=== PATIENT | male | born 1965 | race African-American/Black ===

== ENCOUNTER 2017-06-27 17:56 | Inpatient (IN) | payer OTHER ==
[2017-06-27 19:47] VITALS: BMI 26.6
--- NOTE | 2017-06-27 21:20 | HP ---
CIWA Score - CIWA Score Nausea/Vomitin-Mild Nausea/No Vomiting Muscle Tremors: 2 Anxiety: 3 Agitation: 0-Normal Activity Paroxysmal Sweats: 3 Orientation: 0-Oriented Tacttile Disturbances: 0-None Auditory Disturbances: 0-None Visual Disturbances: 0-None Headache: 4-Moderately Severe CIWA-Ar Total Score: 13 Admission ROS S - HPI Chief Complaint: Alcohol withdrawal symptoms Allergies/Adverse Reactions: Allergies Allergy/AdvReac Type Severity Reaction Status Date / Time No Known Allergies Allergy Verified 06/27/17 21:11 History of Present Illness: 51 years old male with a long history of alcohol dependence is seeking admission to detox. Patient has been in previous detox at [facility] and reports 9 years of sobriety while in [facility]. He has medical history of HTN, nicotine dependence and depression. He denies suicidal ideation at this time. Exam Limitations: No Limitations - Ebola screening Have you traveled outside of the country in the last 21 days: No Have you had contact with anyone from an Ebola affected area: No Have you been sick,other than usual withdrawal symptoms: No Do you have a fever: No - Review of Systems Constitutional: Chills, Loss of Appetite, Malaise, Night Sweats, Changes in sleep EENT: reports: Recent change in vision Respiratory: reports: No Symptoms reported Cardiac: reports: No Symptoms Reported GI: reports: Nausea, Poor Appetite, Poor Fluid Intake, Abdominal cramping : reports: No Symptoms Reported Musculoskeletal: reports: No Symptoms Reported Integumentary: reports: Dryness Neuro: reports: Headache, Tingling, Tremors Endocrine: reports: No Symptoms Reported Hematology: reports: No Symptoms Reported Psychiatric: reports: Agitated, Anxious, Depressed Other Systems: Reviewed and Negative Patient History - Patient Medical History Hx Anemia: No Hx Asthma: No Hx Chronic Obstructive Pulmonary Disease (COPD): No Hx Cancer: No Hx Cardiac Disorders: No Hx Congestive Heart Failure: No Hx Hypertension: Yes (Not on medication) Hx Hypercholesterolemia: No HX Cerebrovascular Accident: No Hx Seizures: No Hx Diabetes: No Hx Gastrointestinal Disorders: No Hx Liver Disease: No Hx Genitourinary Disorders: No Hx Sexually Transmitted Disorders: No Hx Renal Disease (ESRD): No Hx Thyroid Disease: No Hx Human Immunodeficiency Virus (HIV): No (Negative 2018) Hx Hepatitis C: No Hx Depression: Yes (Remeron) Hx Suicide Attempt: No (Denies suicidal ideation at this time) Hx Bipolar Disorder: No Hx Schizophrenia: No - Patient Surgical History Past Surgical History: Yes Hx Abdominal Surgery: Yes (Hernia repair at Age 4) - PPD History Previous Implant?: No Documented Results: Negative w/o proof Implanted On Prior [facility] Admission?: No PPD to be Administered?: Yes - Reproductive History Patient is a Female of Child Bearing Age (11 -55 yrs old): No (Male) - Smoking Cessation Smoking history: Current every day smoker Have you smoked in the past 12 months: Yes Aproximately how many cigarettes per day: 7 Hx Chewing Tobacco Use: No Initiated information on smoking cessation: Yes 'Breaking Loose' booklet given: 06/27/17 - Substance & Tx. History Hx Alcohol Use: Yes Hx Substance Use: Yes Substance Use Type: Cocaine Hx Substance Use Treatment: Yes ([facility]) - Substances Abused Alcohol Route: Oral Frequency: Daily Amount used: VODKA- 1/2 PINT, BEER -2 x (6 packs) Age of first use: 16 Date of Last Use: 06/27/17 Cocaine Route: Smoking Frequency: Daily Amount used: $60 Age of first use: 22 Date of Last Use: 06/26/17 Family Disease History - Family Disease History Family History: Denies Admission Physical Exam S - Vital Signs Vital Signs: Vital Signs - 24 hr 06/27/17 19:46 Temperature 97 F L Pulse Rate 79 Respiratory 18 Rate Blood Pressure 138/82 - Physical General Appearance: Yes: Moderate Distress HEENTM: Yes: EOMI, Normal ENT Inspection, Normal Voice, NINOSKA Respiratory: Yes: Lungs Clear, Normal Breath Sounds, No Respiratory Distress Neck: Yes: Supple Breast: Yes: Breast Exam Deferred Cardiology: Yes: Regular Rhythm, Regular Rate, S1, S2 Abdominal: Yes: Normal Bowel Sounds, Soft Genitourinary: Yes: Within Normal Limits Back: Yes: Normal Inspection Musculoskeletal: Yes: Within Normal Limits Extremities: Yes: Normal Inspection Neurological: Yes: Alert, Normal Mood/Affect Integumentary: Yes: Dry Lymphatic: Yes: Within Normal Limits - Diagnostic (1) Alcohol dependence with uncomplicated withdrawal Current Visit: Yes Status: Chronic (2) Cocaine dependence, uncomplicated Current Visit: Yes Status: Chronic (3) HTN (hypertension) Current Visit: Yes Status: Chronic (4) Nicotine dependence Current Visit: Yes Status: Chronic Qualifiers: Nicotine product type: unspecified (5) Depression Current Visit: Yes Status: Chronic Qualifiers: Depression Type: unspecified Qualified Code(s): F32.9 - Major depressive disorder, single episode, unspecified BHS Breath Alcohol Content Breath Alcohol Content: 0 Urine Drug Screen - Results Drug Screen Negative: No Urine Drug Screen Results: LILY-Cocaine
[2017-06-27] MEDS ORDERED: NICOTINE POLACRILEX 2 MG GUM BC PRN (21:31)
[2017-06-27] MEDS ORDERED: ACETAMINOPHEN 325 MG TABLET (FP) PO PRN (21:31)
[2017-06-27] MEDS ORDERED: MAGNESIUM HYDROX 2400MG/30ML ORAL SUSPENSION 30 ML CUP PO PRN (21:31)
[2017-06-27] MEDS ORDERED: LOPERAMIDE HCL 2 MG CAPSULE PO PRN (21:31)
[2017-06-27] MEDS ORDERED: IBUPROFEN 400 MG TABLET (FP) PO PRN (21:31)
[2017-06-27] MEDS ORDERED: chlordiazePOXIDE HCL 25 MG CAPSULE PO PRN (21:31)
[2017-06-27] MEDS ORDERED: MENTHOL/PHENOL 1 EACH UD MM PRN (21:31)
[2017-06-27] MEDS ORDERED: MAG HYDROX/AL HYDROX/SIMETH 30 ML UNIT-DOSE CUP PO PRN (21:31)
[2017-06-27] MEDS ORDERED: P-EPHED 60MG/TRIPROLIDI 2.5MG TABLET PO PRN (21:31)
[2017-06-27] MEDS ORDERED: MAGNESIUM CITRATE 300 ML BOTTLE PO PRN (21:31)
[2017-06-27] MEDS ORDERED: guaiFENesin/D-METHORPHAN HB 10 ML UNIT-DOSE CUPS PO PRN (21:31)
[2017-06-27] MEDS ORDERED: MELATONIN 5 MG TABLETS PO PRN (22:00)
[2017-06-28] MEDS: chlordiazePOXIDE HCL 25 MG CAPSULE PO SCH ×5 (00:29→22:16)
[2017-06-28] MEDS: THIAMINE HCL 100 MG TABLET (FP) PO SCH ×2 (00:34→22:16)
[2017-06-28] MEDS: PRENATAL VITAMINS W/ FOLIC ACID TABLET (FP) PO SCH (10:04)
[2017-06-28] MEDS: NICOTINE 14 MG/24 HOURS TOPICAL PATCH TD SCH (10:05)
[2017-06-28 10:29] LABS: HEMATOCRIT 42.4 % (35.4-49); HEMOGLOBIN 14.2 GM/dL (11.7-16.9); MCHC 33.5 g/dl (32.0-35.9); MEAN CELL VOLUME 89.6 fl (80-96); MEAN PLT VOLUME 9.7 fl (7.5-11.1); PLATELET COUNT 235 K/MM3 (134-434); RBC 4.73 M/mm3 (4.00-5.60); RDW 14.8 % (11.9-15.9); WHITE BLOOD COUNT 8.9 K/mm3 (4.0-10.0)
--- NOTE | 2017-06-28 10:41 | EKG ---
Test Reason : Blood Pressure : / mmHG Vent. Rate : 073 BPM Atrial Rate : 073 BPM P-R Int : 122 ms QRS Dur : 084 ms QT Int : 384 ms P-R-T Axes : -08 -20 -08 degrees QTc Int : 423 ms NORMAL SINUS RHYTHM WITH SINUS ARRHYTHMIA MODERATE VOLTAGE CRITERIA FOR LVH, MAY BE NORMAL VARIANT NONSPECIFIC ST ABNORMALITY ABNORMAL ECG NO PREVIOUS ECGS AVAILABLE Confirmed by MD Hay, Rad ([id number]) on 06/28/2017 10:41:26 AM Referred By: Confirmed By:Rad Guido MD
[2017-06-28 10:55] LABS: CHLORIDE 108 mmol/L (98-107); POTASSIUM 4.1 mmol/L (3.5-5.1); SODIUM 142 mmol/L (136-145)
[2017-06-28 11:03] LABS: ALBUMIN 3.1 g/dl (3.4-5.0); ALK PHOS 88 U/L (45-117); ANION GAP 6 (8-16); BLOOD UREA NITROGEN 20 mg/dL (7-18); CALCIUM 8.2 mg/dL (8.5-10.1); CO2 28 mmol/L (21-32); GLUCOSE,RANDOM 107 mg/dL (74-106); SGOT/AST 10 U/L (15-37); SGPT/ALT 14 U/L (12-78); TOT PROT 6.2 g/dl (6.4-8.2)
--- NOTE | 2017-06-28 11:20 | PN ---
S CIWA - CIWA Score Nausea/Vomitin-No Nausea/No Vomiting Muscle Tremors: 4-Moderate,w/Arms Extend Anxiety: 3 Agitation: 3 Paroxysmal Sweats: 1-Minimal Palms Moist Orientation: 0-Oriented Tacttile Disturbances: 1-Very Mild Itch/Numbness Auditory Disturbances: 0-None Visual Disturbances: 0-None Headache: 0-None Present CIWA-Ar Total Score: 12 BHS Progress Note (SOAP) Subjective: sweat tremor anxiety no shortness of breath denies chest pain no difficulty of breath patient is alert oriented x 3 had breakfast denies dizziness Objective: 06/28/17 11:18 Vital Signs Temperature 96.1 F L 06/28/17 10:47 Pulse Rate 70 06/28/17 10:47 Respiratory Rate 18 06/28/17 10:47 Blood Pressure 123/78 06/28/17 10:47 O2 Sat by Pulse Oximetry (%) Laboratory Last Values WBC 8.9 K/mm3 (4.0-10.0) 06/28/17 07:00 RBC 4.73 M/mm3 (4.00-5.60) 06/28/17 07:00 Hgb 14.2 GM/dL (11.7-16.9) 06/28/17 07:00 Hct 42.4 % (35.4-49) 06/28/17 07:00 MCV 89.6 fl (80-96) 06/28/17 07:00 MCH 30.0 pg (25.7-33.7) 06/28/17 07:00 MCHC 33.5 g/dl (32.0-35.9) 06/28/17 07:00 RDW 14.8 % (11.9-15.9) 06/28/17 07:00 Plt Count 235 K/MM3 (134-434) 06/28/17 07:00 MPV 9.7 fl (7.5-11.1) 06/28/17 07:00 lab noted Assessment: 06/28/17 11:18 withdrawal sx cardiac arrhythemia Plan: continue detox begin aspirin
[2017-06-28 11:23] LABS: BILIRUBIN,TOTAL < 0.1 mg/dL (0.2-1.0)
--- NOTE | 2017-06-28 16:52 | CONSULT ---
[facility] Psychiatric Consult - Data Date of interview: 06/28/17 Admission source: [facility] Identifying data: Pt. approached three times for psychiatric consultation. Pt. refused.
[2017-06-29] MEDS: chlordiazePOXIDE HCL 25 MG CAPSULE PO SCH ×3 (06:00→17:13)
[2017-06-29] MEDS ORDERED: ASPIRIN 81 MG CHEWABLE TABLETS PO SCH (10:00)
--- NOTE | 2017-06-29 10:10 | PN ---
S CIWA - CIWA Score Nausea/Vomitin Muscle Tremors: 2 Anxiety: 2 Agitation: 2 Paroxysmal Sweats: 3 Orientation: 0-Oriented Tacttile Disturbances: 0-None Auditory Disturbances: 0-None Visual Disturbances: 0-None Headache: 0-None Present CIWA-Ar Total Score: 12 BHS Progress Note (SOAP) Subjective: interrupted sleep, sweats, nausea Objective: 06/29/17 10:06 Vital Signs Temperature 97.7 F 06/29/17 09:20 Pulse Rate 71 06/29/17 09:20 Respiratory Rate 20 06/29/17 09:20 Blood Pressure 129/86 06/29/17 09:20 O2 Sat by Pulse Oximetry (%) Laboratory Tests 06/28/17 06/28/17 07:00 07:00 WBC 8.9 RBC 4.73 Hgb 14.2 Hct 42.4 MCV 89.6 MCH 30.0 MCHC 33.5 RDW 14.8 Plt Count 235 MPV 9.7 Sodium 142 Potassium 4.1 Chloride 108 H Carbon Dioxide 28 Anion Gap 6 L BUN 20 H Creatinine 1.0 Creat Clearance w eGFR > 60 Random Glucose 107 H Calcium 8.2 L Total Bilirubin < 0.1 L AST 10 L ALT 14 Alkaline Phosphatase 88 Total Protein 6.2 L Albumin 3.1 L pt aox3 in nad ,lying in bed Assessment: 06/29/17 10:09 withdrawal sx's Plan: cont. detox increase fluids b
[2017-06-29] MEDS: NICOTINE 14 MG/24 HOURS TOPICAL PATCH TD SCH (10:15)
[2017-06-29] MEDS: PRENATAL VITAMINS W/ FOLIC ACID TABLET (FP) PO SCH (10:15)
--- NOTE | 2017-06-29 10:54 | EKG ---
Test Reason : Blood Pressure : / mmHG Vent. Rate : 064 BPM Atrial Rate : 064 BPM P-R Int : 118 ms QRS Dur : 080 ms QT Int : 406 ms P-R-T Axes : 016 080 055 degrees QTc Int : 418 ms NORMAL SINUS RHYTHM ACUTE PERICARDITIS ABNORMAL ECG WHEN COMPARED WITH ECG OF 28-JUN-2017 00:39, QUESTIONABLE CHANGE IN QRS AXIS ST ELEVATION HAS REPLACED ST DEPRESSION IN INFERIOR LEADS ST LESS ELEVATED IN LATERAL LEADS NONSPECIFIC T WAVE ABNORMALITY HAS REPLACED INVERTED T WAVES IN INFERIOR LEADS Confirmed by SHIVAM COLLADO, COSME ([id number]) on 06/29/2017 10:53:59 AM Referred By: Confirmed By:COSME LANGLEY MD
[2017-06-29 14:30] LABS: URINE APPEARANCE CLEAR; URINE BILIRUBIN NEGATIVE (<2.0 mg/dL); URINE BLOOD NEGATIVE (NEGATIVE); URINE COLOR STRAW; URINE GLUCOSE (UA) NEGATIVE (NEGATIVE); URINE KETONE NEGATIVE (NEGATIVE); URINE LEUK ESTERASE NEGATIVE (NEGATIVE); URINE NITRITE NEGATIVE (NEGATIVE); URINE PROTEIN NEGATIVE (NEGATIVE); URINE UROBILINOGEN NEGATIVE mg/dL (0.2-1.0)
[2017-06-29] MEDS: THIAMINE HCL 100 MG TABLET (FP) PO SCH (22:19)
[2017-06-29] MEDS: chlordiazePOXIDE 5 MG CAPSULE PO SCH (22:19)
[2017-06-30 06:21] VITALS: BP 133/75; PULSE 65; TEMP 95.9
[2017-06-30] MEDS: chlordiazePOXIDE 5 MG CAPSULE PO SCH (06:29)
--- NOTE | 2017-06-30 08:50 | DS ---
[facility] Detox Discharge Summary Admission Date: 06/27/17 Discharge Date: 06/30/17 - History Present History: Alcohol Dependence Additional Comments: 51years old male admitted for alcohol detox reports no alcohol withdrawal sx and wants to go to [facility]care patient is alert oriented x 3 no acute distress steady gait coherent speech - Physical Exam Results Vital Signs: Vital Signs Temperature 95.9 F L 06/30/17 06:00 Pulse Rate 65 06/30/17 06:00 Respiratory Rate 18 06/30/17 06:00 Blood Pressure 133/75 06/30/17 06:00 O2 Sat by Pulse Oximetry (%) Pertinent Admission Physical Exam Findings: withdrawal sx Vital Signs Temperature 95.9 F L 06/30/17 06:00 Pulse Rate 65 06/30/17 06:00 Respiratory Rate 18 06/30/17 06:00 Blood Pressure 133/75 06/30/17 06:00 O2 Sat by Pulse Oximetry (%) Laboratory Last Values WBC 8.9 K/mm3 (4.0-10.0) 06/28/17 07:00 RBC 4.73 M/mm3 (4.00-5.60) 06/28/17 07:00 Hgb 14.2 GM/dL (11.7-16.9) 06/28/17 07:00 Hct 42.4 % (35.4-49) 06/28/17 07:00 MCV 89.6 fl (80-96) 06/28/17 07:00 MCH 30.0 pg (25.7-33.7) 06/28/17 07:00 MCHC 33.5 g/dl (32.0-35.9) 06/28/17 07:00 RDW 14.8 % (11.9-15.9) 06/28/17 07:00 Plt Count 235 K/MM3 (134-434) 06/28/17 07:00 MPV 9.7 fl (7.5-11.1) 06/28/17 07:00 Sodium 142 mmol/L (136-145) 06/28/17 07:00 Potassium 4.1 mmol/L (3.5-5.1) 06/28/17 07:00 Chloride 108 mmol/L (98-107) H 06/28/17 07:00 Carbon Dioxide 28 mmol/L (21-32) 06/28/17 07:00 Anion Gap 6 (8-16) L 06/28/17 07:00 BUN 20 mg/dL (7-18) H 06/28/17 07:00 Creatinine 1.0 mg/dL (0.7-1.3) 06/28/17 07:00 Creat Clearance w eGFR > 60 (>60) 06/28/17 07:00 Random Glucose 107 mg/dL (74-106) H 06/28/17 07:00 Calcium 8.2 mg/dL (8.5-10.1) L 06/28/17 07:00 Total Bilirubin < 0.1 mg/dL (0.2-1.0) L 06/28/17 07:00 AST 10 U/L (15-37) L 06/28/17 07:00 ALT 14 U/L (12-78) 06/28/17 07:00 Alkaline Phosphatase 88 U/L (45-117) 06/28/17 07:00 Total Protein 6.2 g/dl (6.4-8.2) L 06/28/17 07:00 Albumin 3.1 g/dl (3.4-5.0) L 06/28/17 07:00 Urine Color Straw 06/29/17 09:20 Urine Appearance Clear 06/29/17 09:20 Urine pH 6.0 (5.0-8.0) 06/29/17 09:20 Ur Specific Dawson 1.012 (1.001-1.035) 06/29/17 09:20 Urine Protein Negative (NEGATIVE) 06/29/17 09:20 Urine Glucose (UA) Negative (NEGATIVE) 06/29/17 09:20 Urine Ketones Negative (NEGATIVE) 06/29/17 09:20 Urine Blood Negative (NEGATIVE) 06/29/17 09:20 Urine Nitrite Negative (NEGATIVE) 06/29/17 09:20 Urine Bilirubin Negative (<2.0 mg/dL) 06/29/17 09:20 Urine Urobilinogen Negative mg/dL (0.2-1.0) 06/29/17 09:20 Ur Leukocyte Esterase Negative (NEGATIVE) 06/29/17 09:20 RPR Titer Nonreactive (NONREACTIVE) 06/28/17 07:00 lab noted - Treatment Hospital Course: Detox Protocol Followed, Detoxed Safely, Responded well, Discharged Condition Good, Rehab Referral Accepted Patient has Accepted a Rehab Referral [facility]: [facility] - Medication Discharge Medications: Ambulatory Orders Mirtazapine [Remeron -] 30 mg PO HS 06/28/17 - AMA Did Patient Leave Against Medical Advice: No
--- NOTE | 2017-06-30 08:52 | PN ---
S Progress Note (SOAP) Subjective: I am ready to go to aftercare program today denies alcohol withdrawal sx denies pain denies suicidal denies homocidal no self destructive behavior Objective: 06/30/17 08:51 cardiac s1s2 pulmonary clear bilaterally abodmen soft none tenderness extremities full range of motion Assessment: 06/30/17 08:52 completed alcohol detox Plan: [facility]care with [facility]
[2017-06-30] MEDS ORDERED: chlordiazePOXIDE HCL 10 MG CAPSULE PO SCH (23:00)
== END 2017-06-30 08:50 | disposition home or self-care (01) | DRG 774 ==
LOC: YASAS 17:56 → Y6N 22:55
PROVIDERS: ADMIT Internal Medicine; ATTEND Internal Medicine
PROC: HZ2ZZZZ Detoxification Services for Substance Abuse Treatment (ICD-10-PCS; principal; 2017-06-27)
DX: F10.230 Alcohol dependence with withdrawal, uncomplicated (principal); F14.20 Cocaine dependence, uncomplicated; F17.210 Nicotine dependence, cigarettes, uncomplicated; F32.9 Major depressive disorder, single episode, unspecified; I10 Essential (primary) hypertension
CPT/HCPCS: 36415; 80053; 81003; 85027; 86593; 93005; 93010

== ENCOUNTER 2018-03-30 08:52 | Inpatient (IN) | payer OTHER ==
[2018-03-30 09:23] VITALS: BMI 27.8
--- NOTE | 2018-03-30 11:15 | HP ---
CIWA Score Nausea/Vomitin Muscle Tremors: 2 Anxiety: 2 Agitation: 2 Paroxysmal Sweats: 1-Minimal Palms Moist Orientation: 0-Oriented Tacttile Disturbances: 1-Very Mild Itch/Numbness Auditory Disturbances: 1-Very Mild Visual Disturbances: 0-None Headache: 2-Mild CIWA-Ar Total Score: 13 - Admission Criteria OASAS Guidelines: Admission for Medically Managed Detox: Requires at least one of the followin. CIWA greater than 12 2. Seizures within the past 24 hours 3. Delirium tremens within the past 24 hours 4. Hallucinations within the past 24 hours 5. Acute intervention needed for co occurring medical disorder 6. Acute intervention needed for co occurring psychiatric disorder 7. Severe withdrawal that cannot be handled at a lower level of care (continued vomiting, continued diarrhea, abnormal vital signs) requiring intravenous medication and/or fluids 8. Patient presents the following: CIWA greater than 12 Admission Criteria Met: Admission criteria met Admission ROS BHS - HPI Chief Complaint: i need help to stop drinking alcohol and cocaine Allergies/Adverse Reactions: Allergies Allergy/AdvReac Type Severity Reaction Status Date / Time No Known Allergies Allergy Verified 03/30/18 10:23 History of Present Illness: this 52 years old male with alcohol and cocaine dependence,seeking detox, withdrawal symptom,last detox Exam Limitations: No Limitations - Ebola screening Have you traveled outside of the country in the last 21 days: No Have you had contact with anyone from an Ebola affected area: No Have you been sick,other than usual withdrawal symptoms: No Do you have a fever: No - Review of Systems Constitutional: Loss of Appetite, Malaise, Night Sweats, Changes in sleep, Weakness EENT: reports: Nose Congestion, Other (no teeth,no denture) Respiratory: reports: No Symptoms reported Cardiac: reports: No Symptoms Reported GI: reports: Nausea, Poor Appetite, Abdominal cramping : reports: No Symptoms Reported Musculoskeletal: reports: Back Pain, Muscle Pain Integumentary: reports: Dryness Neuro: reports: Headache, Tremors Endocrine: reports: No Symptoms Reported Hematology: reports: No Symptoms Reported Psychiatric: reports: No Sypmtoms Reported, Judgement Intact, Mood/Affect Appropiate, Orientated x3, other (schizophrenia) Patient History - Patient Medical History Hx Anemia: No Hx Asthma: No Hx Chronic Obstructive Pulmonary Disease (COPD): No Hx Cancer: No Hx Cardiac Disorders: No Hx Congestive Heart Failure: No Hx Hypertension: No Hx Hypercholesterolemia: No HX Cerebrovascular Accident: No Hx Seizures: No Hx Diabetes: No Hx Gastrointestinal Disorders: No Hx Liver Disease: No Hx Genitourinary Disorders: No Hx Sexually Transmitted Disorders: No Hx Renal Disease (ESRD): No Hx Thyroid Disease: No Hx Human Immunodeficiency Virus (HIV): No (Negative 2018) Hx Hepatitis C: No Hx Depression: Yes Hx Suicide Attempt: No Hx Bipolar Disorder: No Hx Schizophrenia: No - Patient Surgical History Past Surgical History: Yes Hx Neurologic Surgery: No Hx Cataract Extraction: No Hx Cardiac Surgery: No Hx Lung Surgery: No Hx Breast Surgery: No Hx Breast Biopsy: No Hx Abdominal Surgery: No Hx Appendectomy: No Hx Cholecystectomy: No Hx Genitourinary Surgery: No Hx Section: No Hx Orthopedic Surgery: No Other Surgical History: left inguinal hernia repair at age 24 mos. Anesthesia Reaction: No - PPD History Previous Implant?: Yes Documented Results: Negative w/proof Implanted On Prior [facility] Admission?: Yes Date: 06/30/17 Results: 0 mm - Smoking Cessation Smoking history: Current every day smoker Have you smoked in the past 12 months: Yes Aproximately how many cigarettes per day: 3 Hx Chewing Tobacco Use: No Initiated information on smoking cessation: Yes - Substances Abused Crack Route: Smoking Frequency: Daily Amount used: $100 Age of first use: 28 Date of Last Use: 03/28/18 Alcohol-vodka/beer Route: Oral Frequency: Daily Amount used: 1 pt./1-6 pk. Age of first use: 17 Date of Last Use: 03/30/18 Admission Physical Exam BHS - Vital Signs Vital Signs: Vital Signs - 24 hr 03/30/18 09:19 Temperature 98.6 F Pulse Rate 92 H Respiratory 18 Rate Blood Pressure 136/72 BHS Breath Alcohol Content Breath Alcohol Content: 0 Urine Drug Screen - Results Drug Screen Negative: No Urine Drug Screen Results: LILY-Cocaine
--- NOTE | 2018-03-30 12:04 | HP ---
CIWA Score Nausea/Vomitin Muscle Tremors: 2 Anxiety: 2 Agitation: 2 Paroxysmal Sweats: 1-Minimal Palms Moist Orientation: 0-Oriented Tacttile Disturbances: 1-Very Mild Itch/Numbness Auditory Disturbances: 1-Very Mild Visual Disturbances: 0-None Headache: 2-Mild CIWA-Ar Total Score: 13 - Admission Criteria OASAS Guidelines: Admission for Medically Managed Detox: Requires at least one of the followin. CIWA greater than 12 2. Seizures within the past 24 hours 3. Delirium tremens within the past 24 hours 4. Hallucinations within the past 24 hours 5. Acute intervention needed for co occurring medical disorder 6. Acute intervention needed for co occurring psychiatric disorder 7. Severe withdrawal that cannot be handled at a lower level of care (continued vomiting, continued diarrhea, abnormal vital signs) requiring intravenous medication and/or fluids 8. Patient presents the following: CIWA greater than 12 Admission Criteria Met: Admission criteria met Admission ROS S - HPI Chief Complaint: i need help to stop drinking alcohol and cocaine Allergies/Adverse Reactions: Allergies Allergy/AdvReac Type Severity Reaction Status Date / Time No Known Allergies Allergy Verified 03/30/18 10:23 History of Present Illness: this 52 years old male with alcohol and cocaine dependence,seeking detox, withdrawal symptom,seeking detox,last detox 06/27/17 to 06/30/17 syncope longest period of sobriety 2 years nicotine dependence plan for rehab seen at [facility] last night got iv - Ebola screening Have you traveled outside of the country in the last 21 days: No Have you had contact with anyone from an Ebola affected area: No Have you been sick,other than usual withdrawal symptoms: No Do you have a fever: No - Review of Systems Constitutional: No Symptoms Reported, Loss of Appetite, Malaise, Night Sweats, Changes in sleep, Weakness, Unintentional Wgt. Loss EENT: reports: Tearing, Nose Congestion Respiratory: reports: No Symptoms reported Cardiac: reports: No Symptoms Reported GI: reports: Diarrhea, Nausea, Abdominal cramping : reports: No Symptoms Reported Musculoskeletal: reports: Back Pain, Muscle Pain Integumentary: reports: Dryness Neuro: reports: Headache, Tremors Endocrine: reports: No Symptoms Reported Hematology: reports: No Symptoms Reported Psychiatric: reports: No Sypmtoms Reported, Judgement Intact, Mood/Affect Appropiate, Orientated x3, Anxious, Depressed Other Systems: Reviewed and Negative Patient History - Patient Medical History Hx Anemia: No Hx Asthma: No Hx Chronic Obstructive Pulmonary Disease (COPD): No Hx Cancer: No Hx Cardiac Disorders: No Hx Congestive Heart Failure: No Hx Hypertension: No Hx Hypercholesterolemia: No HX Cerebrovascular Accident: No Hx Seizures: No Hx Diabetes: No Hx Gastrointestinal Disorders: No Hx Liver Disease: No Hx Genitourinary Disorders: No Hx Sexually Transmitted Disorders: No Hx Renal Disease (ESRD): No Hx Thyroid Disease: No Hx Human Immunodeficiency Virus (HIV): No (Negative 2018 last 917) Hx Hepatitis C: No Hx Depression: Yes (no med) Hx Suicide Attempt: No Hx Bipolar Disorder: No Hx Schizophrenia: No Other Medical History: no suicidal,no homicida - Patient Surgical History Past Surgical History: Yes Hx Neurologic Surgery: No Hx Cataract Extraction: No Hx Cardiac Surgery: No Hx Lung Surgery: No Hx Breast Surgery: No Hx Breast Biopsy: No Hx Abdominal Surgery: No Hx Appendectomy: No Hx Cholecystectomy: No Hx Genitourinary Surgery: No Hx Section: No Hx Orthopedic Surgery: No Other Surgical History: left inguinal hernia repair at age 24 mos. Anesthesia Reaction: No - PPD History Previous Implant?: Yes Documented Results: Negative w/proof Implanted On Prior [facility] Admission?: Yes Date: 06/30/17 Results: 0 mm PPD to be Administered?: No - Smoking Cessation Smoking history: Current every day smoker Have you smoked in the past 12 months: Yes Aproximately how many cigarettes per day: 3 Hx Chewing Tobacco Use: No Initiated information on smoking cessation: Yes 'Breaking Loose' booklet given: 03/30/18 - Substance & Tx. History Hx Alcohol Use: Yes Hx Substance Use: Yes Substance Use Type: Alcohol, Cocaine - Substances Abused Crack Route: Smoking Frequency: Daily Amount used: $100 Age of first use: 28 Date of Last Use: 03/28/18 Alcohol-vodka/beer Route: Oral Frequency: Daily Amount used: 1 pt./1-6 pk. Age of first use: 17 Date of Last Use: 03/30/18 Family Disease History - Family Disease History Family History: Denies Admission Physical Exam BHS - Vital Signs Vital Signs: Vital Signs - 24 hr 03/30/18 09:19 Temperature 98.6 F Pulse Rate 92 H Respiratory 18 Rate Blood Pressure 136/72 - Physical General Appearance: Yes: Moderate Distress, Tremorous, Irritable, Sweating, Anxious HEENTM: Yes: Normal ENT Inspection, NINOSKA, Pharynx Normal Respiratory: Yes: Lungs Clear, Normal Breath Sounds, No Respiratory Distress Neck: Yes: Within Normal Limits, Supple, Trachea in good position Breast: Yes: Within Normal Limits Cardiology: Yes: Within Normal Limits, Regular Rhythm, Regular Rate, S1, S2 Abdominal: Yes: Within Normal Limits, Normal Bowel Sounds, Non Tender, Flat, Soft Genitourinary: Yes: Within Normal Limits Back: Yes: Muscle Spasm Musculoskeletal: Yes: Back pain, Muscle Pain Extremities: Yes: Tremors Neurological: Yes: Within Normal Limits, 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, Fully Oriented, Alert Integumentary: Yes: Dry Lymphatic: Yes: Within Normal Limits - Diagnostic (1) Alcohol dependence with uncomplicated withdrawal Current Visit: No Status: Chronic (2) Cocaine dependence, uncomplicated Current Visit: No Status: Chronic (3) Nicotine dependence Current Visit: No Status: Chronic Qualifiers: Nicotine product type: cigarettes Cleared for Admission [facility] - Detox or Rehab [facility] Level of Care: Medically Managed Detox Regimen/Protocol: Librium [facility] Breath Alcohol Content Breath Alcohol Content: 0 Urine Drug Screen - Results Drug Screen Negative: No Urine Drug Screen Results: LILY-Cocaine
[2018-03-30] MEDS ORDERED: MAGNESIUM HYDROX 2400MG/30ML ORAL SUSPENSION 30 ML CUP PO PRN (12:19)
[2018-03-30] MEDS ORDERED: hydrOXYzine PAMOATE 50 MG CAPSULE (FP) PO PRN (12:19)
[2018-03-30] MEDS ORDERED: MAG HYDROX/AL HYDROX/SIMETH 30 ML UNIT-DOSE CUP PO PRN (12:19)
[2018-03-30] MEDS ORDERED: MENTHOL/PHENOL 1 EACH UD MM PRN (12:19)
[2018-03-30] MEDS ORDERED: guaiFENesin/D-METHORPHAN HB 10 ML UNIT-DOSE CUPS PO PRN (12:19)
[2018-03-30] MEDS ORDERED: LOPERAMIDE HCL 2 MG CAPSULE PO PRN (12:19)
[2018-03-30] MEDS ORDERED: IBUPROFEN 400 MG TABLET (FP) PO PRN (12:19)
[2018-03-30] MEDS ORDERED: P-EPHED 60MG/TRIPROLIDI 2.5MG TABLET PO PRN (12:19)
[2018-03-30] MEDS ORDERED: MAGNESIUM CITRATE 300 ML BOTTLE PO PRN (12:19)
[2018-03-30] MEDS ORDERED: chlordiazePOXIDE HCL 25 MG CAPSULE PO PRN (12:19)
[2018-03-30] MEDS ORDERED: ACETAMINOPHEN 325 MG TABLET (FP) PO PRN (12:19)
[2018-03-30] MEDS: chlordiazePOXIDE HCL 25 MG CAPSULE PO SCH ×2 (17:42→22:01)
[2018-03-30] MEDS ORDERED: MELATONIN 5 MG TABLETS PO PRN (22:00)
[2018-03-30] MEDS: THIAMINE HCL 100 MG TABLET (FP) PO SCH (22:01)
[2018-03-31] MEDS: chlordiazePOXIDE HCL 25 MG CAPSULE PO SCH ×2 (05:43→10:20)
[2018-03-31 10:17] LABS: HEMATOCRIT 44.7 % (35.4-49); HEMOGLOBIN 14.3 GM/dL (11.7-16.9); MCH 28.6 pg (25.7-33.7); MEAN CELL VOLUME 89.2 fl (80-96); MEAN PLT VOLUME 10.3 fl (7.5-11.1); PLATELET COUNT 289 K/MM3 (134-434); RBC 5.01 M/mm3 (4.00-5.60); RDW 14.4 % (11.9-15.9); WHITE BLOOD COUNT 8.1 K/mm3 (4.0-10.0)
[2018-03-31] MEDS: PRENATAL VITAMINS W/ FOLIC ACID TABLET (FP) PO SCH (10:19)
[2018-03-31 10:46] LABS: ALBUMIN 3.6 g/dl (3.4-5.0); ALK PHOS 97 U/L (45-117); ANION GAP 7 MMOL/L (8-16); BILIRUBIN,TOTAL 0.6 mg/dL (0.2-1); BLOOD UREA NITROGEN 23 mg/dL (7-18); CALCIUM 8.7 mg/dL (8.5-10.1); CHLORIDE 100 mmol/L (98-107); CO2 29 mmol/L (21-32); CREATININE 1.3 mg/dL (0.55-1.3); GLUCOSE,RANDOM 84 mg/dL (74-106); POTASSIUM 4.3 mmol/L (3.5-5.1); SGOT/AST 16 U/L (15-37); SGPT/ALT 26 U/L (13-61); SODIUM 137 mmol/L (136-145); TOT PROT 7.6 g/dl (6.4-8.2)
--- NOTE | 2018-03-31 12:39 | PN ---
S CIWA - CIWA Score Nausea/Vomitin-Mild Nausea/No Vomiting Muscle Tremors: 1-None Visible, but [place] Anxiety: 1-Mildly Anxious Agitation: 1-Slight > Activity Paroxysmal Sweats: No Perspiration Orientation: 0-Oriented Tacttile Disturbances: 0-None Auditory Disturbances: 0-None Visual Disturbances: 0-None Headache: 0-None Present CIWA-Ar Total Score: 4 BHS Progress Note (SOAP) Subjective: pt states the lobrium dose may be too high for him- feeling lethargic this morning. Vital Signs - 24 hr 03/30/18 03/30/18 03/30/18 13:11 18:00 21:14 Temperature 97.7 F 96.8 F L 97.1 F L Pulse Rate 88 80 91 H Respiratory 18 18 18 Rate Blood Pressure 118/75 126/81 148/91 03/31/18 03/31/18 03/31/18 00:30 03:30 06:32 Temperature 97 F L Pulse Rate 73 Respiratory 20 18 18 Rate Blood Pressure 101/61 03/31/18 03/31/18 09:31 09:32 Temperature 97.5 F L Pulse Rate 71 90 Respiratory 18 Rate Blood Pressure 92/56 L 101/61 Laboratory Tests 03/31/18 03/31/18 05:45 05:45 WBC 8.1 RBC 5.01 Hgb 14.3 Hct 44.7 MCV 89.2 MCH 28.6 MCHC 32.0 RDW 14.4 Plt Count 289 D MPV 10.3 Sodium 137 Potassium 4.3 Chloride 100 Carbon Dioxide 29 Anion Gap 7 L BUN 23 H Creatinine 1.3 Creat Clearance w eGFR 58.43 Random Glucose 84 Calcium 8.7 Total Bilirubin 0.6 AST 16 ALT 26 Alkaline Phosphatase 97 Total Protein 7.6 Albumin 3.6 a/p: alcohol detox - will decrease dose of librium and hold for increased lethargy/sedation
[2018-03-31] MEDS ORDERED: chlordiazePOXIDE 5 MG CAPSULE PO PRN (12:41)
[2018-03-31] MEDS ORDERED: chlordiazePOXIDE HCL 25 MG CAPSULE PO SCH (17:00)
[2018-03-31] MEDS: chlordiazePOXIDE 5 MG CAPSULE PO SCH ×2 (17:28→22:12)
[2018-03-31] MEDS: THIAMINE HCL 100 MG TABLET (FP) PO SCH (22:12)
[2018-04-01] MEDS: chlordiazePOXIDE 5 MG CAPSULE PO SCH ×2 (05:26→10:33)
[2018-04-01] MEDS: PRENATAL VITAMINS W/ FOLIC ACID TABLET (FP) PO SCH (10:31)
--- NOTE | 2018-04-01 14:32 | PN ---
S CIWA - CIWA Score Nausea/Vomitin-No Nausea/No Vomiting Muscle Tremors: 3 Anxiety: 2 Agitation: 1-Slight > Activity Paroxysmal Sweats: 3 Orientation: 0-Oriented Tacttile Disturbances: 2-Mild Itch/Numbness/Burn Auditory Disturbances: 2-Mild Harshness/Frighten Visual Disturbances: 0-None Headache: 0-None Present CIWA-Ar Total Score: 13 BHS Progress Note (SOAP) Subjective: Tremors, Sweating, Body Aches, Fatigue. Objective: PATIENT A & O X 3. IN NO ACUTE DISTRESS. 04/01/18 14:31 Vital Signs Temperature 96.7 F L 04/01/18 13:26 Pulse Rate 88 04/01/18 13:26 Respiratory Rate 18 04/01/18 13:26 Blood Pressure 131/81 04/01/18 13:26 O2 Sat by Pulse Oximetry (%) Laboratory Tests 03/31/18 03/31/18 03/31/18 05:45 05:45 05:45 WBC 8.1 RBC 5.01 Hgb 14.3 Hct 44.7 MCV 89.2 MCH 28.6 MCHC 32.0 RDW 14.4 Plt Count 289 D MPV 10.3 Sodium 137 Potassium 4.3 Chloride 100 Carbon Dioxide 29 Anion Gap 7 L BUN 23 H Creatinine 1.3 Creat Clearance w eGFR 58.43 Random Glucose 84 Calcium 8.7 Total Bilirubin 0.6 AST 16 ALT 26 Alkaline Phosphatase 97 Total Protein 7.6 Albumin 3.6 RPR Titer Nonreactive LABS NOTED. Assessment: 04/01/18 14:31 WITHDRAWAL SYMPTOMS. INCREASE DAILY PO FLUID INTAKE.
[2018-04-01] MEDS ORDERED: chlordiazePOXIDE 5 MG CAPSULE PO SCH (17:00)
[2018-04-01] MEDS: chlordiazePOXIDE HCL 10 MG CAPSULE PO SCH ×2 (17:43→22:23)
[2018-04-01] MEDS: THIAMINE HCL 100 MG TABLET (FP) PO SCH (22:23)
[2018-04-02] MEDS: chlordiazePOXIDE HCL 10 MG CAPSULE PO SCH ×2 (05:43→11:16)
[2018-04-02] MEDS: PRENATAL VITAMINS W/ FOLIC ACID TABLET (FP) PO SCH (11:16)
--- NOTE | 2018-04-02 13:34 | PN ---
S Progress Note (SOAP) Subjective: Denies any complaints Objective: 04/02/18 13:33 Last Vital Signs Temp Pulse Resp BP Pulse Ox 97.3 F L 80 16 112/70 04/02/18 09:51 04/02/18 09:51 04/02/18 09:51 04/02/18 09:51 Laboratory Tests 03/31/18 03/31/18 03/31/18 05:45 05:45 05:45 WBC 8.1 RBC 5.01 Hgb 14.3 Hct 44.7 MCV 89.2 MCH 28.6 MCHC 32.0 RDW 14.4 Plt Count 289 D MPV 10.3 Sodium 137 Potassium 4.3 Chloride 100 Carbon Dioxide 29 Anion Gap 7 L BUN 23 H Creatinine 1.3 Creat Clearance w eGFR 58.43 Random Glucose 84 Calcium 8.7 Total Bilirubin 0.6 AST 16 ALT 26 Alkaline Phosphatase 97 Total Protein 7.6 Albumin 3.6 RPR Titer Nonreactive Labs reviewed: bun 23, GFR 58.43 Assessment: 04/02/18 13:33 Withdrawal symptoms Noted with prerenal azotemia Plan: Continue detox Prerenal azotemia: encouraged PO water intake
[2018-04-02] MEDS ORDERED: chlordiazePOXIDE HCL 10 MG CAPSULE PO SCH (17:00)
[2018-04-02] MEDS: chlordiazePOXIDE 5 MG CAPSULE PO SCH ×2 (18:35→22:27)
[2018-04-02] MEDS: THIAMINE HCL 100 MG TABLET (FP) PO SCH (22:27)
[2018-04-03] MEDS: chlordiazePOXIDE 5 MG CAPSULE PO SCH (06:24)
--- NOTE | 2018-04-03 08:27 | DS ---
[facility] Detox Discharge Summary Admission Date: 03/30/18 Discharge Date: 04/03/18 - History Present History: Alcohol Dependence Additional Comments: 52 years old male admitted on 03/30/18 for alcohol withdrawal stabilization completed alcohol detox regimen [facility] - Physical Exam Results Vital Signs: Vital Signs Temperature 97.8 F 04/03/18 06:24 Pulse Rate 78 04/03/18 06:24 Respiratory Rate 19 04/03/18 06:24 Blood Pressure 121/73 04/03/18 06:24 O2 Sat by Pulse Oximetry (%) Pertinent Admission Physical Exam Findings: alcohol withdrawal sx Laboratory Last Values WBC 8.1 K/mm3 (4.0-10.0) 03/31/18 05:45 RBC 5.01 M/mm3 (4.00-5.60) 03/31/18 05:45 Hgb 14.3 GM/dL (11.7-16.9) 03/31/18 05:45 Hct 44.7 % (35.4-49) 03/31/18 05:45 MCV 89.2 fl (80-96) 03/31/18 05:45 MCH 28.6 pg (25.7-33.7) 03/31/18 05:45 MCHC 32.0 g/dl (32.0-35.9) 03/31/18 05:45 RDW 14.4 % (11.9-15.9) 03/31/18 05:45 Plt Count 289 K/MM3 (134-434) D 03/31/18 05:45 MPV 10.3 fl (7.5-11.1) 03/31/18 05:45 Sodium 137 mmol/L (136-145) 03/31/18 05:45 Potassium 4.3 mmol/L (3.5-5.1) 03/31/18 05:45 Chloride 100 mmol/L (98-107) 03/31/18 05:45 Carbon Dioxide 29 mmol/L (21-32) 03/31/18 05:45 Anion Gap 7 MMOL/L (8-16) L 03/31/18 05:45 BUN 23 mg/dL (7-18) H 03/31/18 05:45 Creatinine 1.3 mg/dL (0.55-1.3) 03/31/18 05:45 Creat Clearance w eGFR 58.43 (>60) 03/31/18 05:45 Random Glucose 84 mg/dL (74-106) 03/31/18 05:45 Calcium 8.7 mg/dL (8.5-10.1) 03/31/18 05:45 Total Bilirubin 0.6 mg/dL (0.2-1) 03/31/18 05:45 AST 16 U/L (15-37) 03/31/18 05:45 ALT 26 U/L (13-61) 03/31/18 05:45 Alkaline Phosphatase 97 U/L (45-117) 03/31/18 05:45 Total Protein 7.6 g/dl (6.4-8.2) 03/31/18 05:45 Albumin 3.6 g/dl (3.4-5.0) 03/31/18 05:45 RPR Titer Nonreactive (NONREACTIVE) 03/31/18 05:45 lab noted - Treatment Hospital Course: Detox Protocol Followed, Detoxed Safely, Responded well, Discharged Condition Good, Rehab Referral Accepted Patient has Accepted a Rehab Referral to: [facility] - Medication Discharge Medications: Ambulatory Orders Mirtazapine [Remeron -] 30 mg PO HS 06/28/17 - Diagnosis (1) Alcohol dependence with uncomplicated withdrawal Status: Acute (2) Weight loss Status: Acute (3) HTN (hypertension) Status: Chronic Qualifiers: Hypertension type: essential hypertension Qualified Code(s): I10 - Essential (primary) hypertension (4) Nicotine dependence Status: Acute Qualifiers: Nicotine product type: cigarettes Substance use status: in withdrawal Qualified Code(s): F17.213 - Nicotine dependence, cigarettes, with withdrawal - AMA Did Patient Leave Against Medical Advice: No
[2018-04-03 10:00] VITALS: BP 130/77; PULSE 80; TEMP 97.2
== END 2018-04-03 09:54 | disposition home or self-care (01) | DRG 774 ==
LOC: YASAS 08:52 → Y3N 12:29
PROC: HZ2ZZZZ Detoxification Services for Substance Abuse Treatment (ICD-10-PCS; principal; 2018-03-30)
DX: F10.230 Alcohol dependence with withdrawal, uncomplicated (principal); F14.20 Cocaine dependence, uncomplicated; F17.213 Nicotine dependence, cigarettes, with withdrawal; I10 Essential (primary) hypertension; R79.89 Other specified abnormal findings of blood chemistry
CPT/HCPCS: 36415; 80053; 85027; 86593

== ENCOUNTER 2018-11-15 15:55 | Inpatient (IN) | payer OTHER ==
[2018-11-15 20:03] VITALS: BMI 31.9
--- NOTE | 2018-11-15 21:46 | HP ---
CIWA Score Nausea/Vomitin-No Nausea/No Vomiting Muscle Tremors: None Anxiety: 1-Mildly Anxious Agitation: 1-Slight > Activity Paroxysmal Sweats: 3 Orientation: 2-Disoriented Date<2 days Tacttile Disturbances: 0-None Auditory Disturbances: 0-None Visual Disturbances: 2-Mild Sensitivity Headache: 3-Moderate CIWA-Ar Total Score: 12 - Admission Criteria [facility] Guidelines: Admission for Medically Managed Detox: Requires at least one of the followin. CIWA greater than 12 2. Seizures within the past 24 hours 3. Delirium tremens within the past 24 hours 4. Hallucinations within the past 24 hours 5. Acute intervention needed for co occurring medical disorder 6. Acute intervention needed for co occurring psychiatric disorder 7. Severe withdrawal that cannot be handled at a lower level of care (continued vomiting, continued diarrhea, abnormal vital signs) requiring intravenous medication and/or fluids 8. Patient presents the following: CIWA greater than 12 Admission Criteria Met: Admission criteria met Admission [facility] Chief Complaint: C/O WITHDRAWAL SX'S Allergies/Adverse Reactions: Allergies Allergy/AdvReac Type Severity Reaction Status Date / Time No Known Allergies Allergy Verified 11/15/18 19:52 History of Present Illness: 53 Y.O. MALE WITH ALCOHOLISM HERE FOR DETOX. CLIENT IS SELF REFERRED. KNOWN TO THIS PROGRAM. LAST HERE 03/2018. DENIES DETOX TXMENT SINCE. PRESENTS TODAY WITH C /O WITHDRAWAL SX'. STATES DRINKS DAILY. LAST USE 1 DAY AGO. 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 ALCOHOL HX SINCE THE AGE OF 15. ALSO COCAINE DEPENDENT. DENIES ANY SIGNIFICANT PERIOD OF CLEAN TIME EXCEPT WHEN IN TXMENT. DENIES SZ, + BLACKOUTS. DENIES DT'S. LIVES WITH FAMILY, UNEMPLOYED, DENIES LEGALS Exam Limitations: No Limitations - Ebola screening Have you traveled outside of the country in the last 21 days: No Have you had contact with anyone from an Ebola affected area: No Do you have a fever: No - Review of Systems Constitutional: Malaise, Night Sweats, Changes in sleep EENT: reports: No Symptoms Reported Respiratory: reports: No Symptoms reported Cardiac: reports: No Symptoms Reported (AT THIS TIME), Chest Pain (STATES WAS TREATED EALRIER TODAY AT [facility] BUT NEGATIVE FINDINGS. FEELS IT WAS RELATED TO COCAINE USE.) GI: reports: No Symptoms Reported : reports: No Symptoms Reported Musculoskeletal: reports: No Symptoms Reported Integumentary: reports: No Symptoms Reported Neuro: reports: Headache Endocrine: reports: No Symptoms Reported Hematology: reports: No Symptoms Reported Psychiatric: reports: Agitated (IRRITABLE), Anxious Other Systems: Reviewed and Negative Patient History - Patient Medical History Hx Anemia: No Hx Asthma: No Hx Chronic Obstructive Pulmonary Disease (COPD): No Hx Cancer: No Hx Cardiac Disorders: No Hx Congestive Heart Failure: No Hx Hypertension: Yes (NO MEDS) Hx Hypercholesterolemia: No HX Cerebrovascular Accident: No Hx Seizures: No Hx Diabetes: No Hx Gastrointestinal Disorders: No Hx Liver Disease: No Hx Genitourinary Disorders: No Hx Sexually Transmitted Disorders: No Hx Renal Disease (ESRD): No Hx Thyroid Disease: No Hx Human Immunodeficiency Virus (HIV): No (Negative 2017 last 917) Hx Hepatitis C: No Hx Depression: Yes (REMERON) Hx Suicide Attempt: No Hx Bipolar Disorder: No Hx Schizophrenia: No Other Medical History: DENIES - Patient Surgical History Past Surgical History: Yes Hx Neurologic Surgery: No Hx Cataract Extraction: No Hx Cardiac Surgery: No Hx Lung Surgery: No Hx Breast Surgery: No Hx Breast Biopsy: No Hx Abdominal Surgery: No Hx Appendectomy: No Hx Cholecystectomy: No Hx Genitourinary Surgery: No Hx Section: No Hx Orthopedic Surgery: No Other Surgical History: left inguinal hernia repair at age 24 mos. Anesthesia Reaction: No - PPD History Previous Implant?: Yes Documented Results: Negative w/proof Implanted On Prior [facility] Admission?: No Date: 06/30/17 Results: 0 mm PPD to be Administered?: No - Smoking Cessation Smoking history: Current every day smoker Have you smoked in the past 12 months: Yes Aproximately how many cigarettes per day: 8 Hx Chewing Tobacco Use: No Initiated information on smoking cessation: Yes 'Breaking Loose' booklet given: 11/15/18 - Substance & Tx. History Hx Alcohol Use: Yes Hx Substance Use: Yes Substance Use Type: Alcohol, Cocaine Hx Substance Use Treatment: Yes ([facility]) - Substances abused Alcohol Substance route: Oral Frequency: Daily Amount used: 2- 6 packs of beer and 1 pint of vodka Age of first use: 15 Date of last use: 11/14/18 Cocaine Substance route: Smoking Frequency: Daily Amount used: 70 dollars Age of first use: 24 Date of last use: 11/14/18 Family Disease History - Family Disease History Family History: Denies Admission Physical Exam [facility] - Vital Signs Vital Signs: Vital Signs - 24 hr 11/15/18 19:57 Temperature 97.3 F L Pulse Rate 79 Respiratory 20 Rate Blood Pressure 151/92 - Physical General Appearance: Yes: Mild Distress, Irritable (IRRITABLE), Anxious HEENTM: Yes: EOMI, Normocephalic, Normal Voice, [place], Pharynx Normal, Other ( POOR DENTIAL HYGIENE) Respiratory: Yes: Chest Non-Tender, Lungs Clear, Normal Breath Sounds, No Respiratory Distress, No Accessory Muscle Use Neck: Yes: No masses,lesions,Nodules, Supple, Trachea in good position Breast: Yes: Breasts Symetrical Cardiology: Yes: Regular Rhythm, Regular Rate, S1, S2 Abdominal: Yes: Normal Bowel Sounds, Non Tender, Soft, Protuberent Genitourinary: Yes: Within Normal Limits (NO C/O OFFERED) Back: Yes: Normal Inspection Musculoskeletal: Yes: full range of Motion, Gait Steady Extremities: Yes: Normal Capillary Refill, Normal Range of Motion, Non-Tender Neurological: Yes: Alert, Motor Strength 5/5, Depressed Affect Integumentary: Yes: Dry, Warm Lymphatic: Yes: Within Normal Limits - Diagnostic (1) Alcohol dependence with uncomplicated withdrawal Current Visit: Yes Status: Acute (2) Nicotine dependence Current Visit: Yes Status: Chronic Qualifiers: Nicotine product type: cigarettes Substance use status: in withdrawal Qualified Code(s): F17.213 - Nicotine dependence, cigarettes, with withdrawal (3) Cocaine dependence, uncomplicated Current Visit: Yes Status: Acute (4) Depression Current Visit: Yes Status: Chronic Qualifiers: Depression Type: unspecified Qualified Code(s): F32.9 - Major depressive disorder, single episode, unspecified (5) HTN (hypertension) Current Visit: Yes Status: Chronic Qualifiers: Hypertension type: essential hypertension Qualified Code(s): I10 - Essential (primary) hypertension Cleared for Admission [facility] - Detox or Rehab [facility] Level of Care: Medically Managed Detox Regimen/Protocol: Librium Claeared for Rehab Admission: No Breathalyzer - Breathalyzer Breathalyzer: 0 Urine Drug Screen - Test Device Lot number: [id number] Expiration date: 08/18/20 - Control Is test valid?: Yes - Results Drug screen NEGATIVE: No Urine drug screen results: LILY-Cocaine Inpatient Rehab Admission - Rehab Decision to Admit Inpatient rehab admission?: No
[2018-11-15] MEDS ORDERED: ONDANSETRON *ODT* 4 MG TABLET SL PRN (21:50)
[2018-11-15] MEDS ORDERED: MAGNESIUM HYDROX 2400MG/30ML ORAL SUSPENSION 30 ML CUP PO PRN (21:50)
[2018-11-15] MEDS ORDERED: MAGNESIUM CITRATE 300 ML BOTTLE PO PRN (21:50)
[2018-11-15] MEDS ORDERED: hydrOXYzine HCL 25 MG TABLET (FP) PO PRN (21:50)
[2018-11-15] MEDS ORDERED: MENTHOL/PHENOL 1 EACH UD MM PRN (21:50)
[2018-11-15] MEDS ORDERED: MAG HYDROX/AL HYDROX/SIMETH 30 ML UNIT-DOSE CUP PO PRN (21:50)
[2018-11-15] MEDS ORDERED: ACETAMINOPHEN 325 MG TABLET (FP) PO PRN ×2 (21:50)
[2018-11-15] MEDS ORDERED: IBUPROFEN 400 MG TABLET (FP) PO PRN (21:50)
[2018-11-15] MEDS ORDERED: guaiFENesin 200 MG/10 ML 10 ML UNIT-DOSE CUPS PO PRN (21:50)
[2018-11-15] MEDS ORDERED: BISMUTH SUBSALICYLATE 524 MG/30 ML UD PO PRN (21:50)
[2018-11-15] MEDS ORDERED: chlordiazePOXIDE HCL 25 MG CAPSULE PO PRN (21:50)
[2018-11-15] MEDS ORDERED: DICYCLOMINE HCL 10 MG CAPSULE PO PRN (21:50)
[2018-11-15] MEDS ORDERED: METHOCARBAMOL 500 MG TABLET PO PRN (21:50)
[2018-11-15] MEDS ORDERED: P-EPHED 60MG/TRIPROLIDI 2.5MG TABLET PO PRN (21:50)
[2018-11-15] MEDS ORDERED: NICOTINE POLACRILEX 2 MG GUM BUC PRN (21:50)
[2018-11-15] MEDS ORDERED: cloNIDine HCL 0.1 MG TABLET PO PRN (21:52)
[2018-11-15] MEDS: THIAMINE HCL 100 MG TABLET (FP) PO SCH (23:32)
[2018-11-15] MEDS: chlordiazePOXIDE HCL 25 MG CAPSULE PO SCH (23:32)
[2018-11-16] MEDS: chlordiazePOXIDE HCL 25 MG CAPSULE PO SCH ×4 (06:23→22:34)
[2018-11-16] MEDS: PRENATAL VITAMINS W/ FOLIC ACID TABLET (FP) PO SCH (10:29)
[2018-11-16] MEDS: NICOTINE 14 MG/24 HOURS TOPICAL PATCH TD SCH (10:31)
--- NOTE | 2018-11-16 10:34 | EKG ---
Test Reason : Blood Pressure : / mmHG Vent. Rate : 069 BPM Atrial Rate : 069 BPM P-R Int : 124 ms QRS Dur : 076 ms QT Int : 386 ms P-R-T Axes : 076 078 051 degrees QTc Int : 413 ms NORMAL SINUS RHYTHM NORMAL ECG WHEN COMPARED WITH ECG OF 28-JUN-2017 09:51, NO SIGNIFICANT CHANGE WAS FOUND Confirmed by MICHAEL TY MD ([id number]) on 11/16/2018 10:33:45 AM Referred By: CLARIBEL SCOTT Confirmed By:MICHAEL TY MD
--- NOTE | 2018-11-16 10:53 | CONSULT ---
[facility] Psychiatric Consult - Data Date of interview: 11/16/18 Admission source: [facility] Identifying data: Patient is a 53 year old single male, without children, unemployed, resides with brother, and is financially supported by his brother. This is one of multiple admissions for patient. Patient admitted to for alcohol and cocaine dependence. Substance Abuse History: Smoking Cessation. Smoking history: Current every day smoker. Have you smoked in the past 12 months: Yes. Aproximately how many cigarettes per day: 8. Hx Chewing Tobacco Use: No. Initiated information on smoking cessation: Yes. 'Breaking Loose' booklet given: 11/15/18. - Substance & Tx. History. Hx Alcohol Use: Yes. Hx Substance Use: Yes. Substance Use Type : Alcohol, Cocaine. Hx Substance Use Treatment: Yes ([facility]). - Substances abused. Alcohol. Substance route: Oral. Frequency: Daily. Amount used: 2 - 6 packs of beer and 1 pint of vodka. Age of first use: 15. Date of last use : 11/14/18. Cocaine. Substance route: Smoking. Frequency: Daily. Amount used: 70 dollars. Age of first use: 24. Date of last use: 11/14/18 Medical History: hypertension, left inguinal hernia repair Psychiatric History: Patient denies h/o psychiatric hospitalization and suicide attempt. Patient reports a history of outpatient psychiatric care. He reports a history of taking remeron and xanac which he states was prescribed to him while incarcerated. Mr. Womack's most recent psychiatric care was over one year ago at the [facility] in which he was prescribed remeron 15mg and xanac (unknown dose). States he was diagnosed with depression, anxiety, and antisocial personality. Patient denies h/o suicide attempt. At present patient reports stable mood but is experiencing difficulty sleeping. Physical/Sexual Abuse/Trauma History: denies. Mental Status Exam - Mental Status Exam Alert and Oriented to: Time, Place, Person Cognitive Function: Good Patient Appearance: Well Groomed Mood: Euthymic Affect: Mood Congruent Patient Behavior: Cooperative Speech Pattern: Appropriate Voice Loudness: Normal Thought Process: Intact, Goal Oriented Thought Disorder: Not Present Hallucinations: Denies Suicidal Ideation: Denies Homicidal Ideation: Denies Insight/Judgement: Poor Sleep: Poorly Appetite: Fair Muscle strength/Tone: Normal Gait/Station: Normal Psychiatric Findings - Problem List ([place] 1, 2,3) (1) Substance-induced sleep disorder Current Visit: Yes Status: Acute (2) Alcohol dependence with uncomplicated withdrawal Current Visit: Yes Status: Acute (3) Cocaine dependence, uncomplicated Current Visit: Yes Status: Acute (4) Nicotine dependence Current Visit: Yes Status: Chronic Qualifiers: Nicotine product type: cigarettes Substance use status: in withdrawal Qualified Code(s): F17.213 - Nicotine dependence, cigarettes, with withdrawal (5) Depressive disorder Current Visit: No Status: Suspected (6) Substance induced mood disorder Current Visit: Yes Status: Acute - Initial Treatment Plan Initial Treatment Plan: Psychoeducation provided. Detoxifiction in progress. Will order Remeron 15mg HS. Benefits and side effects discussed. Verbal consent given.
[2018-11-16 11:43] LABS: HEMATOCRIT 43.2 % (35.4-49); HEMOGLOBIN 14.4 GM/dL (11.7-16.9); MCH 29.6 pg (25.7-33.7); MCHC 33.2 g/dl (32.0-35.9); MEAN CELL VOLUME 89.1 fl (80-96); MEAN PLT VOLUME 9.9 fl (7.5-11.1); PLATELET COUNT 243 K/MM3 (134-434); RBC 4.85 M/mm3 (4.00-5.60); RDW 14.7 % (11.9-15.9); WHITE BLOOD COUNT 5.9 K/mm3 (4.0-10.0)
[2018-11-16 11:46] LABS: ALBUMIN 3.5 g/dl (3.4-5.0); BILIRUBIN,TOTAL 0.4 mg/dL (0.2-1); BLOOD UREA NITROGEN 18.2 mg/dL (7-18); CALCIUM 8.9 mg/dL (8.5-10.1); POTASSIUM 4.1 mmol/L (3.5-5.1); TOT PROT 7.1 g/dl (6.4-8.2)
--- NOTE | 2018-11-16 15:14 | PN ---
[facility] CIWA - CIWA Score Nausea/Vomitin-No Nausea/No Vomiting Muscle Tremors: 4-Moderate,w/Arms Extend Anxiety: 4-Mod. Anxious/Guarded Agitation: 3 Paroxysmal Sweats: 2 Orientation: 0-Oriented Tacttile Disturbances: 0-None Auditory Disturbances: 0-None Visual Disturbances: 0-None Headache: 0-None Present CIWA-Ar Total Score: 13 S Progress Note (SOAP) Subjective: 53 years old male 3rd patient [facility] admission was admitted on for alcohol withdrawal sx management doing well with librium detox regimen seen by psychiatrist liv remeron patient is calm and ensure that he will receeive remeron tonight Objective: 11/16/18 15:16 Vital Signs Temperature 97.1 F L 11/16/18 13:18 Pulse Rate 67 11/16/18 13:18 Respiratory Rate 16 11/16/18 13:18 Blood Pressure 120/79 11/16/18 13:18 O2 Sat by Pulse Oximetry (%) Laboratory Last Values WBC 5.9 K/mm3 (4.0-10.0) 11/16/18 07:30 RBC 4.85 M/mm3 (4.00-5.60) 11/16/18 07:30 Hgb 14.4 GM/dL (11.7-16.9) 11/16/18 07:30 Hct 43.2 % (35.4-49) 11/16/18 07:30 MCV 89.1 fl (80-96) 11/16/18 07:30 MCH 29.6 pg (25.7-33.7) 11/16/18 07:30 MCHC 33.2 g/dl (32.0-35.9) 11/16/18 07:30 RDW 14.7 % (11.9-15.9) 11/16/18 07:30 Plt Count 243 K/MM3 (134-434) 11/16/18 07:30 MPV 9.9 fl (7.5-11.1) 11/16/18 07:30 Sodium 140 mmol/L (136-145) 11/16/18 07:30 Potassium 4.1 mmol/L (3.5-5.1) 11/16/18 07:30 Chloride 104 mmol/L (98-107) 11/16/18 07:30 Carbon Dioxide 29 mmol/L (21-32) 11/16/18 07:30 Anion Gap 7 MMOL/L (8-16) L 11/16/18 07:30 BUN 18.2 mg/dL (7-18) H 11/16/18 07:30 Creatinine 1.0 mg/dL (0.55-1.3) 11/16/18 07:30 Est GFR (CKD-EPI)AfAm 100.55 11/16/18 07:30 Est GFR (CKD-EPI)NonAf 86.76 11/16/18 07:30 Random Glucose 92 mg/dL (74-106) 11/16/18 07:30 Calcium 8.9 mg/dL (8.5-10.1) 11/16/18 07:30 Total Bilirubin 0.4 mg/dL (0.2-1) 11/16/18 07:30 AST 13 U/L (15-37) L 11/16/18 07:30 ALT 18 U/L (13-61) 11/16/18 07:30 Alkaline Phosphatase 92 U/L (45-117) 11/16/18 07:30 Total Protein 7.1 g/dl (6.4-8.2) 11/16/18 07:30 Albumin 3.5 g/dl (3.4-5.0) 11/16/18 07:30 RPR Titer Nonreactive (NONREACTIVE) 11/16/18 07:30 lab noted Assessment: 11/16/18 15:16 alcohol withdrawal sx alert oriented x 3 goal directed behavior tolerate food and fluid well Plan: continue librium detox regimen
[2018-11-16] MEDS: MIRTAZAPINE 15 MG TABLET (FP) PO SCH (22:34)
[2018-11-16] MEDS: THIAMINE HCL 100 MG TABLET (FP) PO SCH (22:34)
[2018-11-16] MEDS: MELATONIN 5 MG TABLETS PO PRN (22:35)
[2018-11-17] MEDS: chlordiazePOXIDE HCL 25 MG CAPSULE PO SCH ×4 (06:34→22:20)
[2018-11-17] MEDS: PRENATAL VITAMINS W/ FOLIC ACID TABLET (FP) PO SCH (10:24)
[2018-11-17] MEDS: NICOTINE 14 MG/24 HOURS TOPICAL PATCH TD SCH (10:24)
--- NOTE | 2018-11-17 12:24 | PN ---
[facility] CIWA - CIWA Score Nausea/Vomitin-Mild Nausea/No Vomiting Muscle Tremors: 2 Anxiety: 2 Agitation: 2 Paroxysmal Sweats: No Perspiration Orientation: 0-Oriented Tacttile Disturbances: 1-Very Mild Itch/Numbness Auditory Disturbances: 0-None Visual Disturbances: 0-None Headache: 1-Very Mild CIWA-Ar Total Score: 9 S Progress Note (SOAP) Subjective: alert,irritable,anxious,interrupted sleep,pain in the body Objective: 11/17/18 12:23 Vital Signs Temperature 97.2 F L 11/17/18 09:39 Pulse Rate 66 11/17/18 09:39 Respiratory Rate 20 11/17/18 09:39 Blood Pressure 136/79 11/17/18 09:39 O2 Sat by Pulse Oximetry (%) Assessment: 11/17/18 12:24 withdrawal symptom Plan: continue detox librium regimen
[2018-11-17 17:56] LABS: URINE APPEARANCE Error; URINE BILIRUBIN NEGATIVE (NEGATIVE); URINE COLOR YELLOW; URINE GLUCOSE (UA) NEGATIVE (NEGATIVE); URINE KETONE NEGATIVE (NEGATIVE); URINE LEUK ESTERASE NEGATIVE (NEGATIVE); URINE NITRITE NEGATIVE (NEGATIVE); URINE PROTEIN NEGATIVE (NEGATIVE); URINE UROBILINOGEN 0.2 mg/dL (0.2-1.0)
[2018-11-17] MEDS: MIRTAZAPINE 15 MG TABLET (FP) PO SCH (22:20)
[2018-11-17] MEDS: THIAMINE HCL 100 MG TABLET (FP) PO SCH (22:20)
[2018-11-18] MEDS ORDERED: chlordiazePOXIDE HCL 10 MG CAPSULE PO PRN
[2018-11-18] MEDS: chlordiazePOXIDE HCL 10 MG CAPSULE PO SCH ×4 (06:02→22:15)
[2018-11-18] MEDS: NICOTINE 14 MG/24 HOURS TOPICAL PATCH TD SCH (10:36)
[2018-11-18] MEDS: PRENATAL VITAMINS W/ FOLIC ACID TABLET (FP) PO SCH (10:36)
--- NOTE | 2018-11-18 14:55 | PN ---
S CIWA - CIWA Score Nausea/Vomitin-No Nausea/No Vomiting Muscle Tremors: 3 Anxiety: 2 Agitation: 2 Paroxysmal Sweats: 1-Minimal Palms Moist Orientation: 0-Oriented Tacttile Disturbances: 0-None Auditory Disturbances: 0-None Visual Disturbances: 0-None Headache: 0-None Present CIWA-Ar Total Score: 8 BHS Progress Note (SOAP) Subjective: Slight anxiety.reports detox taper effective. Objective: 11/18/18 14:54 Vital Signs - 24 hr 11/17/18 11/17/18 11/18/18 17:51 21:30 00:30 Temperature 96.9 F L 98 F Pulse Rate 73 87 Respiratory 18 16 18 Rate Blood Pressure 105/70 127/85 11/18/18 11/18/18 11/18/18 06:02 09:10 13:39 Temperature 98 F 97.5 F L 97.5 F L Pulse Rate 70 67 67 Respiratory 20 18 18 Rate Blood Pressure 102/67 138/96 138/85 Laboratory Tests 11/16/18 11/16/18 11/16/18 07:30 07:30 07:30 WBC 5.9 RBC 4.85 Hgb 14.4 Hct 43.2 MCV 89.1 MCH 29.6 MCHC 33.2 RDW 14.7 Plt Count 243 MPV 9.9 Sodium 140 Potassium 4.1 Chloride 104 Carbon Dioxide 29 Anion Gap 7 L BUN 18.2 H Creatinine 1.0 Est GFR (CKD-EPI)AfAm 100.55 Est GFR (CKD-EPI)NonAf 86.76 Random Glucose 92 Calcium 8.9 Total Bilirubin 0.4 AST 13 L ALT 18 Alkaline Phosphatase 92 Total Protein 7.1 Albumin 3.5 Urine Color Urine Appearance Urine pH Ur Specific [place] Urine Protein Urine Glucose (UA) Urine Ketones Urine Blood Urine Nitrite Urine Bilirubin Urine Urobilinogen Ur Leukocyte Esterase RPR Titer Nonreactive 11/17/18 14:26 WBC RBC Hgb Hct MCV MCH MCHC RDW Plt Count MPV Sodium Potassium Chloride Carbon Dioxide Anion Gap BUN Creatinine Est GFR (CKD-EPI)AfAm Est GFR (CKD-EPI)NonAf Random Glucose Calcium Total Bilirubin AST ALT Alkaline Phosphatase Total Protein Albumin Urine Color Yellow Urine Appearance Error Urine pH 6.0 Ur Specific [place] 1.016 Urine Protein Negative Urine Glucose (UA) Negative Urine Ketones Negative Urine Blood Negative Urine Nitrite Negative Urine Bilirubin Negative Urine Urobilinogen 0.2 Ur Leukocyte Esterase Negative RPR Titer Assessment: 11/18/18 14:54 slight withdrawal sx nad Plan: continue detox librium taper increase po fluids
[2018-11-18] MEDS: THIAMINE HCL 100 MG TABLET (FP) PO SCH (22:15)
[2018-11-18] MEDS: MIRTAZAPINE 15 MG TABLET (FP) PO SCH (22:15)
[2018-11-18] MEDS: MELATONIN 5 MG TABLETS PO PRN (22:15)
[2018-11-19] MEDS: chlordiazePOXIDE HCL 10 MG CAPSULE PO SCH ×2 (06:09→17:16)
[2018-11-19] MEDS: NICOTINE 14 MG/24 HOURS TOPICAL PATCH TD SCH (10:05)
[2018-11-19] MEDS: PRENATAL VITAMINS W/ FOLIC ACID TABLET (FP) PO SCH (10:05)
--- NOTE | 2018-11-19 12:18 | PN ---
S CIWA - CIWA Score Nausea/Vomitin-No Nausea/No Vomiting Muscle Tremors: 1-None Visible, but [place] Anxiety: 2 Agitation: 1-Slight > Activity Paroxysmal Sweats: No Perspiration Orientation: 0-Oriented Tacttile Disturbances: 0-None Auditory Disturbances: 0-None Visual Disturbances: 0-None Headache: 0-None Present CIWA-Ar Total Score: 4 S Progress Note (SOAP) Subjective: 53 years old male third patient [facility] admission was admiteed on 11/15/18 for alcohol withdrawal sx management dong well with librum detox regimen ambulating on hallway discuss aftercare with staff prefers ready willing and able for follow up Objective: 11/19/18 12:21 Vital Signs Temperature 98.9 F 11/19/18 09:47 Pulse Rate 74 11/19/18 09:47 Respiratory Rate 18 11/19/18 09:47 Blood Pressure 125/87 11/19/18 09:47 O2 Sat by Pulse Oximetry (%) Laboratory Last Values WBC 5.9 K/mm3 (4.0-10.0) 11/16/18 07:30 RBC 4.85 M/mm3 (4.00-5.60) 11/16/18 07:30 Hgb 14.4 GM/dL (11.7-16.9) 11/16/18 07:30 Hct 43.2 % (35.4-49) 11/16/18 07:30 MCV 89.1 fl (80-96) 11/16/18 07:30 MCH 29.6 pg (25.7-33.7) 11/16/18 07:30 MCHC 33.2 g/dl (32.0-35.9) 11/16/18 07:30 RDW 14.7 % (11.9-15.9) 11/16/18 07:30 Plt Count 243 K/MM3 (134-434) 11/16/18 07:30 MPV 9.9 fl (7.5-11.1) 11/16/18 07:30 Sodium 140 mmol/L (136-145) 11/16/18 07:30 Potassium 4.1 mmol/L (3.5-5.1) 11/16/18 07:30 Chloride 104 mmol/L (98-107) 11/16/18 07:30 Carbon Dioxide 29 mmol/L (21-32) 11/16/18 07:30 Anion Gap 7 MMOL/L (8-16) L 11/16/18 07:30 BUN 18.2 mg/dL (7-18) H 11/16/18 07:30 Creatinine 1.0 mg/dL (0.55-1.3) 11/16/18 07:30 Est GFR (CKD-EPI)AfAm 100.55 11/16/18 07:30 Est GFR (CKD-EPI)NonAf 86.76 11/16/18 07:30 Random Glucose 92 mg/dL (74-106) 11/16/18 07:30 Calcium 8.9 mg/dL (8.5-10.1) 11/16/18 07:30 Total Bilirubin 0.4 mg/dL (0.2-1) 11/16/18 07:30 AST 13 U/L (15-37) L 11/16/18 07:30 ALT 18 U/L (13-61) 11/16/18 07:30 Alkaline Phosphatase 92 U/L (45-117) 11/16/18 07:30 Total Protein 7.1 g/dl (6.4-8.2) 11/16/18 07:30 Albumin 3.5 g/dl (3.4-5.0) 11/16/18 07:30 Urine Color Yellow 11/17/18 14:26 Urine Appearance Error 11/17/18 14:26 Urine pH 6.0 (5.0-8.0) 11/17/18 14:26 Ur Specific [place] 1.016 (1.010-1.035) 11/17/18 14:26 Urine Protein Negative (NEGATIVE) 11/17/18 14:26 Urine Glucose (UA) Negative (NEGATIVE) 11/17/18 14:26 Urine Ketones Negative (NEGATIVE) 11/17/18 14:26 Urine Blood Negative (NEGATIVE) 11/17/18 14:26 Urine Nitrite Negative (NEGATIVE) 11/17/18 14:26 Urine Bilirubin Negative (NEGATIVE) 11/17/18 14:26 Urine Urobilinogen 0.2 mg/dL (0.2-1.0) 11/17/18 14:26 Ur Leukocyte Esterase Negative (NEGATIVE) 11/17/18 14:26 RPR Titer Nonreactive (NONREACTIVE) 11/16/18 07:30 lab noted Assessment: 11/19/18 12:21 alcohol withdrawal sx alert oriented x 3 patient ate 100% of breakfast and lunch patient requests ensure discuss bmi 32 weight loss patient dissatisfy that need for ensure not met Plan: continue librium deox regimen
[2018-11-19] MEDS: THIAMINE HCL 100 MG TABLET (FP) PO SCH (22:03)
[2018-11-19] MEDS: MELATONIN 5 MG TABLETS PO PRN (22:03)
[2018-11-19] MEDS: MIRTAZAPINE 15 MG TABLET (FP) PO SCH (22:03)
[2018-11-20] MEDS ORDERED: chlordiazePOXIDE HCL 10 MG CAPSULE PO ONE (05:00)
[2018-11-20 07:13] VITALS: BP 106/67; PULSE 73; TEMP 97.2
--- NOTE | 2018-11-20 10:55 | DS ---
[facility] Detox Discharge Summary Admission Date: 11/15/18 Discharge Date: 11/20/18 - History Present History: Alcohol Dependence Additional Comments: 53 years old male admitted on 11/15/18 for alcohol withdrawal sx management did well with libirum detox regimen no complication through out the detox stay seen by psychiatrjonh larose patient plan to gain more weight "biger muscle" discuss the value of diet instead of nutrition supplement - Physical Exam Results Vital Signs: Vital Signs Temperature 97.2 F L 11/20/18 07:13 Pulse Rate 73 11/20/18 07:13 Respiratory Rate 18 11/20/18 07:13 Blood Pressure 106/67 11/20/18 07:13 O2 Sat by Pulse Oximetry (%) Pertinent Admission Physical Exam Findings: alcohol withdrawal sx Laboratory Last Values WBC 5.9 K/mm3 (4.0-10.0) 11/16/18 07:30 RBC 4.85 M/mm3 (4.00-5.60) 11/16/18 07:30 Hgb 14.4 GM/dL (11.7-16.9) 11/16/18 07:30 Hct 43.2 % (35.4-49) 11/16/18 07:30 MCV 89.1 fl (80-96) 11/16/18 07:30 MCH 29.6 pg (25.7-33.7) 11/16/18 07:30 MCHC 33.2 g/dl (32.0-35.9) 11/16/18 07:30 RDW 14.7 % (11.9-15.9) 11/16/18 07:30 Plt Count 243 K/MM3 (134-434) 11/16/18 07:30 MPV 9.9 fl (7.5-11.1) 11/16/18 07:30 Sodium 140 mmol/L (136-145) 11/16/18 07:30 Potassium 4.1 mmol/L (3.5-5.1) 11/16/18 07:30 Chloride 104 mmol/L (98-107) 11/16/18 07:30 Carbon Dioxide 29 mmol/L (21-32) 11/16/18 07:30 Anion Gap 7 MMOL/L (8-16) L 11/16/18 07:30 BUN 18.2 mg/dL (7-18) H 11/16/18 07:30 Creatinine 1.0 mg/dL (0.55-1.3) 11/16/18 07:30 Est GFR (CKD-EPI)AfAm 100.55 11/16/18 07:30 Est GFR (CKD-EPI)NonAf 86.76 11/16/18 07:30 Random Glucose 92 mg/dL (74-106) 11/16/18 07:30 Calcium 8.9 mg/dL (8.5-10.1) 11/16/18 07:30 Total Bilirubin 0.4 mg/dL (0.2-1) 11/16/18 07:30 AST 13 U/L (15-37) L 11/16/18 07:30 ALT 18 U/L (13-61) 11/16/18 07:30 Alkaline Phosphatase 92 U/L (45-117) 11/16/18 07:30 Total Protein 7.1 g/dl (6.4-8.2) 11/16/18 07:30 Albumin 3.5 g/dl (3.4-5.0) 11/16/18 07:30 Urine Color Yellow 11/17/18 14:26 Urine Appearance Error 11/17/18 14:26 Urine pH 6.0 (5.0-8.0) 11/17/18 14:26 Ur Specific [place] 1.016 (1.010-1.035) 11/17/18 14:26 Urine Protein Negative (NEGATIVE) 11/17/18 14:26 Urine Glucose (UA) Negative (NEGATIVE) 11/17/18 14:26 Urine Ketones Negative (NEGATIVE) 11/17/18 14:26 Urine Blood Negative (NEGATIVE) 11/17/18 14:26 Urine Nitrite Negative (NEGATIVE) 11/17/18 14:26 Urine Bilirubin Negative (NEGATIVE) 11/17/18 14:26 Urine Urobilinogen 0.2 mg/dL (0.2-1.0) 11/17/18 14:26 Ur Leukocyte Esterase Negative (NEGATIVE) 11/17/18 14:26 RPR Titer Nonreactive (NONREACTIVE) 11/16/18 07:30 lab noted alert oriented x 3 extremitities full range of motion, no joints swelling no rashes noted abdomen: soft no rebound tenderness respiratory: clear lung on auscultation - Treatment Hospital Course: Detox Protocol Followed, Detoxed Safely, Responded well, Discharged Condition Good, Rehab Referral Accepted Patient has Accepted a Rehab Referral to: [facility] - Medication Discharge Medications: Ambulatory Orders Mirtazapine [Remeron -] 30 mg PO HS 06/28/17 - Diagnosis (1) Alcohol dependence with uncomplicated withdrawal Status: Acute (2) Substance induced mood disorder Status: Suspected (3) HTN (hypertension) Status: Chronic Qualifiers: Hypertension type: essential hypertension Qualified Code(s): I10 - Essential (primary) hypertension (4) Nicotine dependence Status: Acute Qualifiers: Nicotine product type: cigarettes Substance use status: in withdrawal Qualified Code(s): F17.213 - Nicotine dependence, cigarettes, with withdrawal - AMA Did Patient Leave Against Medical Advice: No
== END 2018-11-20 09:21 | disposition home or self-care (01) | DRG 774 ==
LOC: YASAS 15:55 → Y3N 22:15
PROVIDERS: ADMIT Surgery; ATTEND Surgery
PROC: HZ2ZZZZ Detoxification Services for Substance Abuse Treatment (ICD-10-PCS; principal; 2018-11-15)
DX: F10.230 Alcohol dependence with withdrawal, uncomplicated (principal); F14.20 Cocaine dependence, uncomplicated; F17.213 Nicotine dependence, cigarettes, with withdrawal; F19.24 Other psychoactive substance dependence with psychoactive substance-induced mood disorder; F19.282 Other psychoactive substance dependence with psychoactive substance-induced sleep disorder; F32.9 Major depressive disorder, single episode, unspecified; I10 Essential (primary) hypertension; R63.4 Abnormal weight loss
CPT/HCPCS: 36415; 80053; 81003; 85027; 86593; 93005; 93010

== ENCOUNTER 2018-12-15 10:00 | Inpatient (IN) | payer OTHER ==
[2018-12-15 10:42] VITALS: BMI 33.2
--- NOTE | 2018-12-15 11:52 | HP ---
CIWA Score Nausea/Vomitin-No Nausea/No Vomiting Muscle Tremors: 1-None Visible, but [place] Anxiety: 3 Agitation: 2 Paroxysmal Sweats: 2 Orientation: 2-Disoriented Date<2 days Tacttile Disturbances: 0-None Auditory Disturbances: 0-None Visual Disturbances: 0-None Headache: 3-Moderate CIWA-Ar Total Score: 13 - Admission Criteria [facility]ASAS Guidelines: Admission for Medically Managed Detox: Requires at least one of the followin. CIWA greater than 12 2. Seizures within the past 24 hours 3. Delirium tremens within the past 24 hours 4. Hallucinations within the past 24 hours 5. Acute intervention needed for co occurring medical disorder 6. Acute intervention needed for co occurring psychiatric disorder 7. Severe withdrawal that cannot be handled at a lower level of care (continued vomiting, continued diarrhea, abnormal vital signs) requiring intravenous medication and/or fluids 8. Admission ROS [facility] Chief Complaint: "detox from alcohol and cocaine" Allergies/Adverse Reactions: Allergies Allergy/AdvReac Type Severity Reaction Status Date / Time No Known Allergies Allergy Verified 12/15/18 10:32 History of Present Illness: 53 year old male with a history of alcohol and cocaine abuse presents for alcohol detox. Known to us for detox here, last here in October. Was just in the ER at [facility] yesterday for chest pain, which they attributed to cocaine use. 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 Exam Limitations: No Limitations - Ebola screening Have you traveled outside of the country in the last 21 days: No Have you had contact with anyone from an Ebola affected area: No Do you have a fever: No - Review of Systems Constitutional: No Symptoms Reported EENT: reports: No Symptoms Reported Respiratory: reports: No Symptoms reported Cardiac: reports: No Symptoms Reported GI: reports: No Symptoms Reported : reports: No Symptoms Reported Musculoskeletal: reports: No Symptoms Reported Integumentary: reports: No Symptoms Reported Neuro: reports: No Symptoms reported Endocrine: reports: No Symptoms Reported Hematology: reports: No Symptoms Reported Psychiatric: reports: Judgement Intact, Mood/Affect Appropiate, Orientated x3, Anxious Patient History - Patient Medical History Hx Anemia: No Hx Asthma: No Hx Chronic Obstructive Pulmonary Disease (COPD): No Hx Cancer: No Hx Cardiac Disorders: No Hx Congestive Heart Failure: No Hx Hypertension: Yes (NO MEDS) Hx Hypercholesterolemia: No HX Cerebrovascular Accident: No Hx Seizures: No Hx Diabetes: No Hx Gastrointestinal Disorders: No Hx Liver Disease: No Hx Genitourinary Disorders: No Hx Sexually Transmitted Disorders: No Hx Renal Disease (ESRD): No Hx Thyroid Disease: No Hx Human Immunodeficiency Virus (HIV): No (Negative 2018 917) Hx Hepatitis C: No Hx Depression: Yes (REMERON) Hx Suicide Attempt: No Hx Bipolar Disorder: No Hx Schizophrenia: No - Patient Surgical History Past Surgical History: Yes Hx Neurologic Surgery: No Hx Cataract Extraction: No Hx Cardiac Surgery: No Hx Lung Surgery: No Hx Breast Surgery: No Hx Breast Biopsy: No Hx Abdominal Surgery: No Hx Appendectomy: No Hx Cholecystectomy: No Hx Genitourinary Surgery: No Hx Section: No Hx Orthopedic Surgery: No Other Surgical History: left inguinal hernia repair at age 24 mos. Anesthesia Reaction: No - PPD History Date: 06/30/17 Results: 0 mm - Smoking Cessation Smoking history: Current every day smoker Have you smoked in the past 12 months: Yes Aproximately how many cigarettes per day: 8 Hx Chewing Tobacco Use: No Initiated information on smoking cessation: Yes 'Breaking Loose' booklet given: 12/15/18 - Substances abused Alcohol Substance route: Oral Frequency: Daily Amount used: 2- 6 packs of beer and 1 pint of vodka Age of first use: 15 Date of last use: 11/14/18 Cocaine Substance route: Smoking Frequency: Daily Amount used: 70 dollars Age of first use: 24 Date of last use: 11/14/18 Admission Physical Exam BHS - Vital Signs Vital Signs: Vital Signs - 24 hr 12/15/18 10:31 Temperature 96.9 F L Pulse Rate 63 Respiratory 20 Rate Blood Pressure 123/82 - Physical General Appearance: Yes: No Apparent Distress, Nourished, Appropriately Dressed HEENTM: Yes: EOMI, Normal ENT Inspection, Normocephalic, Normal Voice, NINOSKA, Pharynx Normal, Tm's normal Respiratory: Yes: Chest Non-Tender, Lungs Clear, Normal Breath Sounds, No Respiratory Distress, No Accessory Muscle Use Neck: Yes: Trachea in good position Breast: Yes: Within Normal Limits Cardiology: Yes: Regular Rhythm, Regular Rate Abdominal: Yes: Normal Bowel Sounds, Non Tender, Flat, Soft Genitourinary: Yes: Within Normal Limits Back: Yes: Normal Inspection Musculoskeletal: Yes: full range of Motion Extremities: Yes: Normal Capillary Refill, Normal Inspection Neurological: Yes: music grapher II-XII NML intact, Fully Oriented, Motor Strength 5/5, Normal Mood/Affect, Normal Response Integumentary: Yes: Normal Color, Dry, Warm - Diagnostic (1) Alcohol dependence with uncomplicated withdrawal Current Visit: No Status: Acute Cleared for Admission [facility] - Detox or Rehab [facility] Level of Care: Medically Managed Breathalyzer - Breathalyzer Breathalyzer: 0 Urine Drug Screen - Test Device Lot number: [id number] Expiration date: 08/18/20 - Control Is test valid?: Yes - Results Drug screen NEGATIVE: No Urine drug screen results: LILY-Cocaine, BZO-Benzodiazepines Inpatient Rehab Admission - Rehab Decision to Admit Inpatient rehab admission?: No
[2018-12-15] MEDS ORDERED: MAG HYDROX/AL HYDROX/SIMETH 30 ML UNIT-DOSE CUP PO PRN (12:07)
[2018-12-15] MEDS ORDERED: METHOCARBAMOL 500 MG TABLET PO PRN (12:07)
[2018-12-15] MEDS ORDERED: MENTHOL/PHENOL 1 EACH UD MM PRN (12:07)
[2018-12-15] MEDS ORDERED: MAGNESIUM CITRATE 300 ML BOTTLE PO PRN (12:07)
[2018-12-15] MEDS ORDERED: chlordiazePOXIDE HCL 25 MG CAPSULE PO PRN (12:07)
[2018-12-15] MEDS ORDERED: MAGNESIUM HYDROX 2400MG/30ML ORAL SUSPENSION 30 ML CUP PO PRN (12:07)
[2018-12-15] MEDS ORDERED: ACETAMINOPHEN 325 MG TABLET (FP) PO PRN ×2 (12:07)
[2018-12-15] MEDS ORDERED: hydrOXYzine PAMOATE 25 MG CAPSULE (FP) PO PRN (12:07)
[2018-12-15] MEDS ORDERED: BISMUTH SUBSALICYLATE 524 MG/30 ML UD PO PRN (12:07)
--- NOTE | 2018-12-15 12:19 | PN ---
Teaching Attending Note Name of Resident: Dionisio Mc ATTENDING PHYSICIAN STATEMENT I saw and evaluated the patient. I reviewed the resident's note and discussed the case with the resident. I agree with the resident's findings and plan as documented. SUBJECTIVE: this 53 years old male with alcohol and cocaine dependence seeking detox,had multiple admissions in the past but keep relapsing OBJECTIVE: withdrawal signs and symptom ASSESSMENT AND PLAN: patient need inpatient detox with librium regimen,medically managed,plan for rehab after detox
[2018-12-15 14:30] LABS: ALBUMIN 3.6 g/dl (3.4-5.0); BILIRUBIN,TOTAL 0.2 mg/dL (0.2-1); BLOOD UREA NITROGEN 16.6 mg/dL (7-18); POTASSIUM 4.6 mmol/L (3.5-5.1); TOT PROT 7.2 g/dl (6.4-8.2)
[2018-12-15 14:37] LABS: HEMATOCRIT 43.9 % (35.4-49); HEMOGLOBIN 14.6 GM/dL (11.7-16.9); MCHC 33.4 g/dl (32.0-35.9); MEAN CELL VOLUME 90.1 fl (80-96); PLATELET COUNT 257 K/MM3 (134-434); RBC 4.87 M/mm3 (4.00-5.60); RDW 14.8 % (11.9-15.9); WHITE BLOOD COUNT 5.7 K/mm3 (4.0-10.0)
[2018-12-15] MEDS: chlordiazePOXIDE HCL 25 MG CAPSULE PO SCH ×2 (17:37→22:03)
[2018-12-15] MEDS: THIAMINE HCL 100 MG TABLET (FP) PO SCH (22:03)
[2018-12-15] MEDS: MELATONIN 5 MG TABLETS PO PRN (22:03)
[2018-12-15] MEDS: ATORVASTATIN CA 40 MG TABLET (FP) PO SCH (22:03)
[2018-12-16] MEDS: chlordiazePOXIDE HCL 25 MG CAPSULE PO SCH ×4 (06:16→22:05)
[2018-12-16] MEDS ORDERED: FOLIC ACID 1 MG TABLET (FP) PO SCH (10:00)
[2018-12-16] MEDS ORDERED: MULTIVITAMINS (DAILY MVI) TABLET (FP) PO SCH (10:00)
[2018-12-16] MEDS: PRENATAL VITAMINS W/ FOLIC ACID TABLET (FP) PO SCH (10:34)
[2018-12-16] MEDS: ASPIRIN 81 MG CHEWABLE TABLETS PO SCH (10:35)
--- NOTE | 2018-12-16 11:38 | CONSULT ---
[facility] Psychiatric Consult - Data Date of interview: 12/16/18 Admission source: [facility] Identifying data: Readmission to [facility] for this 53 y/o AA male self- referred for detoxification. KEATON issues : alcohol, cocaine,cannabis,nicotine. Seen at [address] [place] [address]. 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 Substance Abuse History: Discussed in this session. Details in current [facility] report as pumas : Smoking history: Current every day smoker. Have you smoked in the past 12 months: Yes. Aproximately how many cigarettes per day: 8. Hx Chewing Tobacco Use: No. Initiated information on smoking cessation: Yes. 'Breaking Loose' booklet given: 12/15/18. - Substances abused. Alcohol. Substance route: Oral. Frequency: Daily. Amount used: 2- 6 packs of beer and 1 pint of vodka. Age of first use: 15. Date of last use: 11/14/18. * * Cocaine. Substance route: Smoking. Frequency: Daily. Amount used: 70 dollars. Age of first use: 24. Date of last use: 11/14/18 Medical History: Patient endorses good general halth. Psychiatric History: No reported history of psychiatric hospitalizations.Patient indicates that he receives psychiatric care during incarceration. Was diagnosed with MDD and prescribed mirtazapine. Dropped out of OPD care after his release from [facility] (stopped going to [facility] mental health outpatient program a year ago). Mr Womack reports getting scripts for remeron from his primary care physician. Denies history of suicide attempts. Physical/Sexual Abuse/Trauma History: Patient declines to discuss this domain. Additional Comment: Urine drug screen results: LILY-Cocaine, BZO- Benzodiazepines. Noted. Mental Status Exam - Mental Status Exam Alert and Oriented to: Time, Place, Person Cognitive Function: Good Patient Appearance: Well Groomed Mood: Withdrawn Affect: Appropriate, Normal Range Patient Behavior: Fatigued, Cooperative Speech Pattern: Clear, Appropriate Voice Loudness: Normal Thought Process: Goal Oriented Thought Disorder: Not Present Hallucinations: Denies Suicidal Ideation: Denies Homicidal Ideation: Denies Insight/Judgement: Poor Sleep: Poorly, Difficulty falling asleep Appetite: Good Muscle strength/Tone: Normal Gait/Station: Normal Psychiatric Findings - Problem List (Wendel 1, 2,3) (1) Alcohol dependence with uncomplicated withdrawal Current Visit: Yes Status: Acute (2) Cocaine dependence, uncomplicated Current Visit: Yes Status: Chronic (3) Nicotine dependence Current Visit: Yes Status: Chronic Qualifiers: Nicotine product type: cigarettes Substance use status: in withdrawal Qualified Code(s): F17.213 - Nicotine dependence, cigarettes, with withdrawal (4) Substance induced mood disorder Current Visit: Yes Status: Chronic (5) Insomnia Current Visit: Yes Status: Chronic - Initial Treatment Plan Initial Treatment Plan: Psychoeducation. Sleep hygiene. Detoxification. AA meetings. Remeron 15 mg po hs. Side effects/benefits discussed with the patient. Verbal consent given to MD. Mcintosh.
--- NOTE | 2018-12-16 14:45 | PN ---
S CIWA - CIWA Score Nausea/Vomitin-No Nausea/No Vomiting Muscle Tremors: 2 Anxiety: 3 Agitation: 2 Paroxysmal Sweats: No Perspiration Orientation: 0-Oriented Tacttile Disturbances: 1-Very Mild Itch/Numbness Auditory Disturbances: 0-None Visual Disturbances: 0-None Headache: 2-Mild CIWA-Ar Total Score: 10 BHS Progress Note (SOAP) Subjective: Anxious, H/A, Tremors. Objective: PATIENT A & O X 3, OBSERVED AMBULATING ON DETOX UNIT UNASSISTED. IN NO ACUTE DISTRESS. 12/16/18 14:46 Vital Signs Temperature 96.0 F L 12/16/18 13:06 Pulse Rate 59 L 12/16/18 13:06 Respiratory Rate 18 12/16/18 13:06 Blood Pressure 116/65 12/16/18 13:06 O2 Sat by Pulse Oximetry (%) Laboratory Tests 12/15/18 12/15/18 12/15/18 12:30 12:30 12:30 WBC 5.7 RBC 4.87 Hgb 14.6 Hct 43.9 MCV 90.1 MCH 30.0 MCHC 33.4 RDW 14.8 Plt Count 257 MPV 10.0 Sodium 139 Potassium 4.6 Chloride 103 Carbon Dioxide 29 Anion Gap 7 L BUN 16.6 Creatinine 1.0 Est GFR (CKD-EPI)AfAm 100.55 Est GFR (CKD-EPI)NonAf 86.76 Random Glucose 87 Calcium 9.0 Total Bilirubin 0.2 AST 15 ALT 28 Alkaline Phosphatase 91 Total Protein 7.2 Albumin 3.6 RPR Titer Nonreactive LABS NOTED. Assessment: 12/16/18 14:46 WITHDRAWAL SYMPTOMS. Plan: CONTINUE DETOX.
[2018-12-16] MEDS: ATORVASTATIN CA 40 MG TABLET (FP) PO SCH (22:04)
[2018-12-16] MEDS: THIAMINE HCL 100 MG TABLET (FP) PO SCH (22:04)
[2018-12-17] MEDS: chlordiazePOXIDE HCL 25 MG CAPSULE PO SCH ×4 (06:19→22:01)
[2018-12-17] MEDS ORDERED: NITROGLYCERIN SUBLINGUAL 1/150 0.4 MG TAB SL PRN (09:43)
--- NOTE | 2018-12-17 09:49 | PN ---
S CIWA - CIWA Score Nausea/Vomitin-No Nausea/No Vomiting Muscle Tremors: 1-None Visible, but [place] Anxiety: 2 Agitation: 2 Paroxysmal Sweats: 1-Minimal Palms Moist Orientation: 0-Oriented Tacttile Disturbances: 0-None Auditory Disturbances: 0-None Visual Disturbances: 0-None Headache: 0-None Present CIWA-Ar Total Score: 6 BHS Progress Note (SOAP) Subjective: 53 years old male admitted on 12/15/18 doing well with librium detox regimen sitting on the edge of the bed eating breakfast seen by psychiatrist treated with remeron patient tolerate well add nitroglycerin to prn order set due to by history with chest pain released by nitroglycerin sl Objective: 12/17/18 09:48 Vital Signs Temperature 96.5 F L 12/17/18 09:32 Pulse Rate 66 12/17/18 09:32 Respiratory Rate 20 12/17/18 09:32 Blood Pressure 118/80 12/17/18 09:32 O2 Sat by Pulse Oximetry (%) Laboratory Last Values WBC 5.7 K/mm3 (4.0-10.0) 12/15/18 12:30 RBC 4.87 M/mm3 (4.00-5.60) 12/15/18 12:30 Hgb 14.6 GM/dL (11.7-16.9) 12/15/18 12:30 Hct 43.9 % (35.4-49) 12/15/18 12:30 MCV 90.1 fl (80-96) 12/15/18 12:30 MCH 30.0 pg (25.7-33.7) 12/15/18 12:30 MCHC 33.4 g/dl (32.0-35.9) 12/15/18 12:30 RDW 14.8 % (11.9-15.9) 12/15/18 12:30 Plt Count 257 K/MM3 (134-434) 12/15/18 12:30 MPV 10.0 fl (7.5-11.1) 12/15/18 12:30 Sodium 139 mmol/L (136-145) 12/15/18 12:30 Potassium 4.6 mmol/L (3.5-5.1) 12/15/18 12:30 Chloride 103 mmol/L (98-107) 12/15/18 12:30 Carbon Dioxide 29 mmol/L (21-32) 12/15/18 12:30 Anion Gap 7 MMOL/L (8-16) L 12/15/18 12:30 BUN 16.6 mg/dL (7-18) 12/15/18 12:30 Creatinine 1.0 mg/dL (0.55-1.3) 12/15/18 12:30 Est GFR (CKD-EPI)AfAm 100.55 12/15/18 12:30 Est GFR (CKD-EPI)NonAf 86.76 12/15/18 12:30 Random Glucose 87 mg/dL (74-106) 12/15/18 12:30 Calcium 9.0 mg/dL (8.5-10.1) 12/15/18 12:30 Total Bilirubin 0.2 mg/dL (0.2-1) 12/15/18 12:30 AST 15 U/L (15-37) 12/15/18 12:30 ALT 28 U/L (13-61) 12/15/18 12:30 Alkaline Phosphatase 91 U/L (45-117) 12/15/18 12:30 Total Protein 7.2 g/dl (6.4-8.2) 12/15/18 12:30 Albumin 3.6 g/dl (3.4-5.0) 12/15/18 12:30 RPR Titer Nonreactive (NONREACTIVE) 12/15/18 12:30 lab noted Assessment: 12/17/18 09:48 alcohol withdrawal sx Plan: continue librium detox regimen discuss alcohol related cardiac disadvantage
[2018-12-17] MEDS: ASPIRIN 81 MG CHEWABLE TABLETS PO SCH (10:28)
[2018-12-17] MEDS: PRENATAL VITAMINS W/ FOLIC ACID TABLET (FP) PO SCH (10:28)
[2018-12-17] MEDS: THIAMINE HCL 100 MG TABLET (FP) PO SCH (22:01)
[2018-12-17] MEDS: ATORVASTATIN CA 40 MG TABLET (FP) PO SCH (22:01)
[2018-12-18] MEDS ORDERED: chlordiazePOXIDE HCL 10 MG CAPSULE PO PRN
[2018-12-18] MEDS: chlordiazePOXIDE HCL 10 MG CAPSULE PO SCH ×4 (06:01→22:12)
--- NOTE | 2018-12-18 09:29 | PN ---
S CIWA - CIWA Score Nausea/Vomitin-No Nausea/No Vomiting Muscle Tremors: 1-None Visible, but [place] Anxiety: 2 Agitation: 1-Slight > Activity Paroxysmal Sweats: No Perspiration Orientation: 0-Oriented Tacttile Disturbances: 0-None Auditory Disturbances: 0-None Visual Disturbances: 0-None Headache: 0-None Present CIWA-Ar Total Score: 4 BHS Progress Note (SOAP) Subjective: doing well with librium detox regimen ate breakfast resting on bed comfortably Objective: 12/18/18 09:28 Vital Signs Temperature 98.2 F 12/18/18 09:04 Pulse Rate 67 12/18/18 09:04 Respiratory Rate 18 12/18/18 09:04 Blood Pressure 110/66 12/18/18 09:04 O2 Sat by Pulse Oximetry (%) Laboratory Last Values WBC 5.7 K/mm3 (4.0-10.0) 12/15/18 12:30 RBC 4.87 M/mm3 (4.00-5.60) 12/15/18 12:30 Hgb 14.6 GM/dL (11.7-16.9) 12/15/18 12:30 Hct 43.9 % (35.4-49) 12/15/18 12:30 MCV 90.1 fl (80-96) 12/15/18 12:30 MCH 30.0 pg (25.7-33.7) 12/15/18 12:30 MCHC 33.4 g/dl (32.0-35.9) 12/15/18 12:30 RDW 14.8 % (11.9-15.9) 12/15/18 12:30 Plt Count 257 K/MM3 (134-434) 12/15/18 12:30 MPV 10.0 fl (7.5-11.1) 12/15/18 12:30 Sodium 139 mmol/L (136-145) 12/15/18 12:30 Potassium 4.6 mmol/L (3.5-5.1) 12/15/18 12:30 Chloride 103 mmol/L (98-107) 12/15/18 12:30 Carbon Dioxide 29 mmol/L (21-32) 12/15/18 12:30 Anion Gap 7 MMOL/L (8-16) L 12/15/18 12:30 BUN 16.6 mg/dL (7-18) 12/15/18 12:30 Creatinine 1.0 mg/dL (0.55-1.3) 12/15/18 12:30 Est GFR (CKD-EPI)AfAm 100.55 12/15/18 12:30 Est GFR (CKD-EPI)NonAf 86.76 12/15/18 12:30 Random Glucose 87 mg/dL (74-106) 12/15/18 12:30 Calcium 9.0 mg/dL (8.5-10.1) 12/15/18 12:30 Total Bilirubin 0.2 mg/dL (0.2-1) 12/15/18 12:30 AST 15 U/L (15-37) 12/15/18 12:30 ALT 28 U/L (13-61) 12/15/18 12:30 Alkaline Phosphatase 91 U/L (45-117) 12/15/18 12:30 Total Protein 7.2 g/dl (6.4-8.2) 12/15/18 12:30 Albumin 3.6 g/dl (3.4-5.0) 12/15/18 12:30 RPR Titer Nonreactive (NONREACTIVE) 12/15/18 12:30 lab noted Assessment: 12/18/18 09:28 alcohol withdrawal sx Plan: continue librium detox regimen
[2018-12-18] MEDS: ASPIRIN 81 MG CHEWABLE TABLETS PO SCH (10:35)
[2018-12-18] MEDS: PRENATAL VITAMINS W/ FOLIC ACID TABLET (FP) PO SCH (10:35)
[2018-12-18] MEDS: ATORVASTATIN CA 40 MG TABLET (FP) PO SCH (22:12)
[2018-12-18] MEDS: THIAMINE HCL 100 MG TABLET (FP) PO SCH (22:12)
[2018-12-19] MEDS: MELATONIN 5 MG TABLETS PO PRN ×2 (00:36→22:08)
[2018-12-19] MEDS: chlordiazePOXIDE HCL 10 MG CAPSULE PO SCH ×2 (05:38→17:24)
[2018-12-19] MEDS: PRENATAL VITAMINS W/ FOLIC ACID TABLET (FP) PO SCH (10:02)
[2018-12-19] MEDS: ASPIRIN 81 MG CHEWABLE TABLETS PO SCH (10:02)
--- NOTE | 2018-12-19 13:06 | PN ---
S CIWA - CIWA Score Nausea/Vomitin-No Nausea/No Vomiting Muscle Tremors: 1-None Visible, but [place] Anxiety: 2 Agitation: 2 Paroxysmal Sweats: No Perspiration Orientation: 0-Oriented Tacttile Disturbances: 1-Very Mild Itch/Numbness Auditory Disturbances: 0-None Visual Disturbances: 0-None Headache: 1-Very Mild CIWA-Ar Total Score: 7 BHS Progress Note (SOAP) Subjective: alert,irritable,anxious,interrupted sleep,pain in the body Objective: 12/19/18 13:05 Vital Signs Temperature 97.8 F 12/19/18 09:01 Pulse Rate 69 12/19/18 09:01 Respiratory Rate 18 12/19/18 09:01 Blood Pressure 118/66 12/19/18 09:01 O2 Sat by Pulse Oximetry (%) Assessment: 12/19/18 13:06 withdrawal symptom Plan: continue detox librium regimen,discharge in am
[2018-12-19] MEDS: THIAMINE HCL 100 MG TABLET (FP) PO SCH (22:07)
[2018-12-19] MEDS: ATORVASTATIN CA 40 MG TABLET (FP) PO SCH (22:08)
[2018-12-20] MEDS ORDERED: chlordiazePOXIDE HCL 10 MG CAPSULE PO ONE (05:00)
[2018-12-20 06:30] VITALS: BP 98/62; PULSE 66; TEMP 98.2
--- NOTE | 2018-12-20 16:10 | DS ---
[facility] Detox Discharge Summary Admission Date: 12/15/18 Discharge Date: 12/20/18 - History Present History: Alcohol Dependence, Cocaine Dependence Additional Comments: PATIENT GOING TO [facility] ([place], [place]) FOR AFTERCARE. PATIENT WAS DISCHARGED FROM DETOX UNIT IN STABLE MEDICAL CONDITION. Pertinent Past History: Nicotine Dependence, Insomnia, Depression. - Physical Exam Results Vital Signs: Vital Signs Temperature 98.2 F 12/20/18 06:30 Pulse Rate 66 12/20/18 07:30 Respiratory Rate 18 12/20/18 07:30 Blood Pressure 98/62 12/20/18 06:30 O2 Sat by Pulse Oximetry (%) Pertinent Admission Physical Exam Findings: WITHDRAWAL SYMPTOMS. Laboratory Tests 12/15/18 12/15/18 12/15/18 12:30 12:30 12:30 WBC 5.7 RBC 4.87 Hgb 14.6 Hct 43.9 MCV 90.1 MCH 30.0 MCHC 33.4 RDW 14.8 Plt Count 257 MPV 10.0 Sodium 139 Potassium 4.6 Chloride 103 Carbon Dioxide 29 Anion Gap 7 L BUN 16.6 Creatinine 1.0 Est GFR (CKD-EPI)AfAm 100.55 Est GFR (CKD-EPI)NonAf 86.76 Random Glucose 87 Calcium 9.0 Total Bilirubin 0.2 AST 15 ALT 28 Alkaline Phosphatase 91 Total Protein 7.2 Albumin 3.6 RPR Titer Nonreactive LABS NOTED. - Treatment Hospital Course: Detox Protocol Followed, Detoxed Safely, Responded well, Discharged Condition Good, Rehab Referral Accepted Patient has Accepted a Rehab Referral to: [facility] ([place], [place]). - Medication Discharge Medications: Ambulatory Orders Mirtazapine [Remeron -] 30 mg PO HS 06/28/17 Aspirin [ASA -] 81 mg PO DAILY 12/15/18 Atorvastatin Ca [Lipitor] 40 mg PO HS 12/15/18 Famotidine [Pepcid -] 20 mg PO BID 12/15/18 Folic Acid 1 mg PO DAILY 12/15/18 Multivitamins [Tab-A-Vit -] 1 tab PO DAILY 12/15/18 Thiamine HCl [B-1] 100 mg PO DAILY 12/15/18 - Diagnosis (1) Alcohol dependence with uncomplicated withdrawal Status: Acute (2) Cocaine dependence, uncomplicated Status: Chronic (3) Insomnia Status: Chronic Qualifiers: Insomnia type: unspecified Qualified Code(s): G47.00 - Insomnia, unspecified (4) Nicotine dependence Status: Chronic Qualifiers: Nicotine product type: cigarettes Substance use status: in withdrawal Qualified Code(s): F17.213 - Nicotine dependence, cigarettes, with withdrawal (5) Substance induced mood disorder Status: Chronic - AMA Did Patient Leave Against Medical Advice: No [facility] CIWA - CIWA Score Nausea/Vomitin-No Nausea/No Vomiting Muscle Tremors: None Anxiety: 0-No Anxiety, at Ease Agitation: 2 Paroxysmal Sweats: No Perspiration Orientation: 0-Oriented Tacttile Disturbances: 0-None Auditory Disturbances: 0-None Visual Disturbances: 0-None Headache: 0-None Present CIWA-Ar Total Score: 2
== END 2018-12-20 09:02 | disposition home or self-care (01) | DRG 774 ==
LOC: YASAS 10:00 → Y3N 12:59
PROVIDERS: ADMIT Surgery; ATTEND Surgery
PROC: HZ2ZZZZ Detoxification Services for Substance Abuse Treatment (ICD-10-PCS; principal; 2018-12-15)
DX: F10.230 Alcohol dependence with withdrawal, uncomplicated (principal); F14.20 Cocaine dependence, uncomplicated; F17.210 Nicotine dependence, cigarettes, uncomplicated; F19.24 Other psychoactive substance dependence with psychoactive substance-induced mood disorder; G47.00 Insomnia, unspecified
CPT/HCPCS: 36415; 80053; 85027; 86593

== ENCOUNTER 2019-01-21 09:02 | Inpatient (IN) | payer OTHER ==
[2019-01-21 09:26] VITALS: BMI 31.0
[2019-01-21] MEDS ORDERED: hydrOXYzine PAMOATE 25 MG CAPSULE (FP) PO PRN (10:29)
[2019-01-21] MEDS ORDERED: METHOCARBAMOL 500 MG TABLET PO PRN (10:29)
[2019-01-21] MEDS ORDERED: IBUPROFEN 400 MG TABLET (FP) PO PRN (10:29)
[2019-01-21] MEDS ORDERED: chlordiazePOXIDE HCL 10 MG CAPSULE PO PRN (10:29)
[2019-01-21] MEDS ORDERED: BISMUTH SUBSALICYLATE 524 MG/30 ML UD PO PRN (10:29)
[2019-01-21] MEDS ORDERED: MAGNESIUM CITRATE 300 ML BOTTLE PO PRN (10:29)
[2019-01-21] MEDS ORDERED: ACETAMINOPHEN 325 MG TABLET (FP) PO PRN ×2 (10:29)
[2019-01-21] MEDS ORDERED: MAGNESIUM HYDROX 2400MG/30ML ORAL SUSPENSION 30 ML CUP PO PRN (10:29)
[2019-01-21] MEDS ORDERED: MENTHOL/PHENOL 1 EACH UD MM PRN (10:29)
[2019-01-21] MEDS ORDERED: MAG HYDROX/AL HYDROX/SIMETH 30 ML UNIT-DOSE CUP PO PRN (10:29)
--- NOTE | 2019-01-21 10:29 | HP ---
CIWA Score Nausea/Vomitin-Mild Nausea/No Vomiting Muscle Tremors: 2 Anxiety: 2 Agitation: 2 Paroxysmal Sweats: No Perspiration Orientation: 0-Oriented Tacttile Disturbances: 1-Very Mild Itch/Numbness Auditory Disturbances: 0-None Visual Disturbances: 1-Very Mild Sensitivity Headache: 3-Moderate CIWA-Ar Total Score: 12 - Admission Criteria OASAS Guidelines: Admission for Medically Managed Detox: Requires at least one of the followin. CIWA greater than 12 2. Seizures within the past 24 hours 3. Delirium tremens within the past 24 hours 4. Hallucinations within the past 24 hours 5. Acute intervention needed for co occurring medical disorder 6. Acute intervention needed for co occurring psychiatric disorder 7. Severe withdrawal that cannot be handled at a lower level of care (continued vomiting, continued diarrhea, abnormal vital signs) requiring intravenous medication and/or fluids 8. Admitting History and Physical - Smoking History Smoking history: Current every day smoker Have you smoked in the past 12 months: Yes Aproximately how many cigarettes per day: 8 - Alcohol/Substance Use Hx Alcohol Use: Yes Admission ROS S - HPI Chief Complaint: im trying to clean up Allergies/Adverse Reactions: Allergies Allergy/AdvReac Type Severity Reaction Status Date / Time No Known Allergies Allergy Verified 01/21/19 09:19 History of Present Illness: giuliano wants detox reports he has been drinking more using $100/daily crack cocaine was in ed for "feeling funny" - reports cleared now wants detox and nursing home has ahd success x 2 y abstinence - Ebola screening Have you traveled outside of the country in the last 21 days: No (N) Have you had contact with anyone from an Ebola affected area: No Do you have a fever: No - Review of Systems Constitutional: Loss of Appetite, Malaise EENT: reports: No Symptoms Reported Respiratory: reports: No Symptoms reported Cardiac: reports: No Symptoms Reported GI: reports: Abdominal cramping : reports: No Symptoms Reported Musculoskeletal: reports: No Symptoms Reported Integumentary: reports: No Symptoms Reported Neuro: reports: Dizziness (resolved) Hematology: reports: No Symptoms Reported Psychiatric: reports: No Sypmtoms Reported Patient History - Patient Medical History Hx Anemia: No Hx Asthma: No Hx Chronic Obstructive Pulmonary Disease (COPD): No Hx Cancer: No Hx Cardiac Disorders: No Hx Congestive Heart Failure: No Hx Hypertension: No Hx Hypercholesterolemia: No HX Cerebrovascular Accident: No Hx Seizures: No Hx Diabetes: No Hx Gastrointestinal Disorders: No Hx Liver Disease: No Hx Genitourinary Disorders: No Hx Sexually Transmitted Disorders: No Hx Renal Disease (ESRD): No Hx Thyroid Disease: No Hx Human Immunodeficiency Virus (HIV): No (Negative 2018 last 917) Hx Hepatitis C: No Hx Depression: Yes Hx Suicide Attempt: No Hx Bipolar Disorder: No Hx Schizophrenia: No - Patient Surgical History Past Surgical History: Yes Hx Neurologic Surgery: No Hx Cataract Extraction: No Hx Cardiac Surgery: No Hx Lung Surgery: No Hx Breast Surgery: No Hx Breast Biopsy: No Hx Abdominal Surgery: No Hx Appendectomy: No Hx Cholecystectomy: No Hx Genitourinary Surgery: No Hx Section: No Hx Orthopedic Surgery: No Other Surgical History: left inguinal hernia repair at age 24 mos. Anesthesia Reaction: No - PPD History Date: 06/30/17 Results: 0 mm - Smoking Cessation Smoking history: Current every day smoker Have you smoked in the past 12 months: Yes Aproximately how many cigarettes per day: 8 Hx Chewing Tobacco Use: No Initiated information on smoking cessation: Yes 'Breaking Loose' booklet given: 01/21/19 - Substances abused Alcohol Substance route: Oral Frequency: Daily Amount used: 2- 6 packs of beer and 1 pint of vodka Age of first use: 15 Date of last use: 01/20/19 Cocaine Substance route: Smoking Frequency: 1-2 times per week Amount used: 100 dollars Age of first use: 24 Date of last use: 01/19/19 Admission Physical Exam BHS - Vital Signs Vital Signs: Vital Signs - 24 hr 01/21/19 09:17 Temperature 97.7 F Pulse Rate 82 Respiratory 18 Rate Blood Pressure 173/113 H - Physical General Appearance: Yes: No Apparent Distress HEENTM: Yes: EOMI, Other (conjunctival injection) Respiratory: Yes: Chest Non-Tender, Lungs Clear Neck: Yes: No masses,lesions,Nodules Cardiology: Yes: Regular Rhythm, Regular Rate, S1, S2 Abdominal: Yes: Normal Bowel Sounds, Non Tender Back: Yes: Within Normal Limits, Normal Inspection Musculoskeletal: Yes: Within Normal Limits, full range of Motion Extremities: Yes: Normal Inspection Neurological: Yes: Within Normal Limits, [employer] II-XII NML intact, Fully Oriented, Alert Integumentary: Yes: Within Normal Limits Cleared for Admission S - Detox or Rehab [facility] Level of Care: Medically Supervised Detox Regimen/Protocol: Librium Breathalyzer - Breathalyzer Breathalyzer: 0 Urine Drug Screen - Test Device Lot number: [id number] Expiration date: 09/17/18 - Control Is test valid?: Yes - Results Drug screen NEGATIVE: No Urine drug screen results: LILY-Cocaine, MET-Methamphetamine, BZO-Benzodiazepines Inpatient Rehab Admission - Rehab Decision to Admit Inpatient rehab admission?: No
[2019-01-21] MEDS: ASPIRIN 81 MG CHEWABLE TABLETS PO SCH (12:27)
[2019-01-21] MEDS: chlordiazePOXIDE HCL 25 MG CAPSULE PO SCH ×2 (12:28→22:35)
[2019-01-21] MEDS ORDERED: MIRTAZAPINE 15 MG TABLET (FP) ONE (21:32)
[2019-01-21] MEDS ORDERED: MELATONIN 5 MG TABLETS PO PRN (22:00)
[2019-01-21] MEDS: THIAMINE HCL 100 MG TABLET (FP) PO SCH (22:34)
[2019-01-21] MEDS: ATORVASTATIN CA 40 MG TABLET (FP) PO SCH (22:35)
[2019-01-21] MEDS: MIRTAZAPINE 30 MG TABLET (FP) PO SCH (22:35)
[2019-01-22] MEDS: chlordiazePOXIDE HCL 25 MG CAPSULE PO SCH ×3 (05:49→22:00)
[2019-01-22 09:57] LABS: HEMATOCRIT 45.1 % (35.4-49); HEMOGLOBIN 14.9 GM/dL (11.7-16.9); MCH 29.2 pg (25.7-33.7); MCHC 33.2 g/dl (32.0-35.9); MEAN PLT VOLUME 10.2 fl (7.5-11.1); PLATELET COUNT 223 K/MM3 (134-434); RBC 5.12 M/mm3 (4.00-5.60); RDW 15.2 % (11.9-15.9); WHITE BLOOD COUNT 5.7 K/mm3 (4.0-10.0)
[2019-01-22 10:09] LABS: ALBUMIN 3.4 g/dl (3.4-5.0); BILIRUBIN,TOTAL 0.4 mg/dL (0.2-1); BLOOD UREA NITROGEN 18.6 mg/dL (7-18); CALCIUM 8.9 mg/dL (8.5-10.1); TOT PROT 6.9 g/dl (6.4-8.2)
[2019-01-22] MEDS: ASPIRIN 81 MG CHEWABLE TABLETS PO SCH (10:33)
[2019-01-22] MEDS: PRENATAL VITAMINS W/ FOLIC ACID TABLET (FP) PO SCH (10:33)
--- NOTE | 2019-01-22 11:03 | EKG ---
Test Reason : Blood Pressure : / mmHG Vent. Rate : 068 BPM Atrial Rate : 068 BPM P-R Int : 122 ms QRS Dur : 078 ms QT Int : 398 ms P-R-T Axes : 075 077 052 degrees QTc Int : 423 ms NORMAL SINUS RHYTHM NORMAL ECG WHEN COMPARED WITH ECG OF 15-NOV-2018 23:07, NO SIGNIFICANT CHANGE WAS FOUND Confirmed by ISAURO MANCINI MD ([id number]) on 01/22/2019 11:03:20 AM Referred By: Confirmed By:ISAURO MANCINI MD
--- NOTE | 2019-01-22 15:43 | PN ---
[facility] CIWA - CIWA Score Nausea/Vomitin-Mild Nausea/No Vomiting Muscle Tremors: 3 Anxiety: 3 Agitation: 2 Paroxysmal Sweats: 2 Orientation: 1-Uncertain about Date Tacttile Disturbances: 0-None Auditory Disturbances: 0-None Visual Disturbances: 0-None Headache: 1-Very Mild CIWA-Ar Total Score: 13 S Progress Note (SOAP) Subjective: 53 years old male admitted on 01/21/19 for alcohol withdrawal sx managgement treated with libriumm detox regimen patient tolerated well alert oriented x [address] watching TV in day room with peers Objective: 01/22/19 15:42 Vital Signs Temperature 97.1 F L 01/22/19 13:18 Pulse Rate 64 01/22/19 13:18 Respiratory Rate 19 01/22/19 13:18 Blood Pressure 136/83 01/22/19 13:18 O2 Sat by Pulse Oximetry (%) Laboratory Last Values WBC 5.7 K/mm3 (4.0-10.0) 01/22/19 08:00 RBC 5.12 M/mm3 (4.00-5.60) 01/22/19 08:00 Hgb 14.9 GM/dL (11.7-16.9) 01/22/19 08:00 Hct 45.1 % (35.4-49) 01/22/19 08:00 MCV 88.0 fl (80-96) 01/22/19 08:00 MCH 29.2 pg (25.7-33.7) 01/22/19 08:00 MCHC 33.2 g/dl (32.0-35.9) 01/22/19 08:00 RDW 15.2 % (11.9-15.9) 01/22/19 08:00 Plt Count 223 K/MM3 (134-434) 01/22/19 08:00 MPV 10.2 fl (7.5-11.1) 01/22/19 08:00 Sodium 138 mmol/L (136-145) 01/22/19 08:00 Potassium 4.0 mmol/L (3.5-5.1) 01/22/19 08:00 Chloride 104 mmol/L (98-107) 01/22/19 08:00 Carbon Dioxide 31 mmol/L (21-32) 01/22/19 08:00 Anion Gap 3 MMOL/L (8-16) L 01/22/19 08:00 BUN 18.6 mg/dL (7-18) H 01/22/19 08:00 Creatinine 1.0 mg/dL (0.55-1.3) 01/22/19 08:00 Est GFR (CKD-EPI)AfAm 100.55 01/22/19 08:00 Est GFR (CKD-EPI)NonAf 86.76 01/22/19 08:00 Random Glucose 91 mg/dL (74-106) 01/22/19 08:00 Calcium 8.9 mg/dL (8.5-10.1) 01/22/19 08:00 Total Bilirubin 0.4 mg/dL (0.2-1) 01/22/19 08:00 AST 21 U/L (15-37) 01/22/19 08:00 ALT 24 U/L (13-61) 01/22/19 08:00 Alkaline Phosphatase 91 U/L (45-117) 01/22/19 08:00 Total Protein 6.9 g/dl (6.4-8.2) 01/22/19 08:00 Albumin 3.4 g/dl (3.4-5.0) 01/22/19 08:00 RPR Titer Nonreactive (NONREACTIVE) 01/22/19 08:00 lab noted Assessment: 01/22/19 15:43 alcohol withdrawal sx Plan: continue librium detox regimen
[2019-01-22] MEDS ORDERED: MIRTAZAPINE 15 MG TABLET (FP) ONE (21:35)
[2019-01-22] MEDS: THIAMINE HCL 100 MG TABLET (FP) PO SCH (22:36)
[2019-01-22] MEDS: ATORVASTATIN CA 40 MG TABLET (FP) PO SCH (22:36)
[2019-01-22] MEDS: MIRTAZAPINE 30 MG TABLET (FP) PO SCH (22:37)
[2019-01-23] MEDS: chlordiazePOXIDE 5 MG CAPSULE PO SCH ×3 (06:01→22:15)
--- NOTE | 2019-01-23 09:20 | PN ---
[facility] CIWA - CIWA Score Nausea/Vomitin-Mild Nausea/No Vomiting Muscle Tremors: 3 Anxiety: 3 Agitation: 2 Paroxysmal Sweats: 2 Orientation: 0-Oriented Tacttile Disturbances: 0-None Auditory Disturbances: 0-None Visual Disturbances: 0-None Headache: 0-None Present CIWA-Ar Total Score: 11 [facility] Progress Note (SOAP) Subjective: 53 years old male admitted on 01/21/19 for alcohol withdrawal sx management treated with librium detox regimen patient tolerated well ate breakfast tolerated food and fluid well resting on bed limited conversation with stass Objective: 01/23/19 09:17 Vital Signs Temperature 97.8 F 01/23/19 06:22 Pulse Rate 61 01/23/19 06:22 Respiratory Rate 20 01/23/19 06:22 Blood Pressure 101/53 L 01/23/19 06:22 O2 Sat by Pulse Oximetry (%) Laboratory Last Values WBC 5.7 K/mm3 (4.0-10.0) 01/22/19 08:00 RBC 5.12 M/mm3 (4.00-5.60) 01/22/19 08:00 Hgb 14.9 GM/dL (11.7-16.9) 01/22/19 08:00 Hct 45.1 % (35.4-49) 01/22/19 08:00 MCV 88.0 fl (80-96) 01/22/19 08:00 MCH 29.2 pg (25.7-33.7) 01/22/19 08:00 MCHC 33.2 g/dl (32.0-35.9) 01/22/19 08:00 RDW 15.2 % (11.9-15.9) 01/22/19 08:00 Plt Count 223 K/MM3 (134-434) 01/22/19 08:00 MPV 10.2 fl (7.5-11.1) 01/22/19 08:00 Sodium 138 mmol/L (136-145) 01/22/19 08:00 Potassium 4.0 mmol/L (3.5-5.1) 01/22/19 08:00 Chloride 104 mmol/L (98-107) 01/22/19 08:00 Carbon Dioxide 31 mmol/L (21-32) 01/22/19 08:00 Anion Gap 3 MMOL/L (8-16) L 01/22/19 08:00 BUN 18.6 mg/dL (7-18) H 01/22/19 08:00 Creatinine 1.0 mg/dL (0.55-1.3) 01/22/19 08:00 Est GFR (CKD-EPI)AfAm 100.55 01/22/19 08:00 Est GFR (CKD-EPI)NonAf 86.76 01/22/19 08:00 Random Glucose 91 mg/dL (74-106) 01/22/19 08:00 Calcium 8.9 mg/dL (8.5-10.1) 01/22/19 08:00 Total Bilirubin 0.4 mg/dL (0.2-1) 01/22/19 08:00 AST 21 U/L (15-37) 01/22/19 08:00 ALT 24 U/L (13-61) 01/22/19 08:00 Alkaline Phosphatase 91 U/L (45-117) 01/22/19 08:00 Total Protein 6.9 g/dl (6.4-8.2) 01/22/19 08:00 Albumin 3.4 g/dl (3.4-5.0) 01/22/19 08:00 RPR Titer Nonreactive (NONREACTIVE) 01/22/19 08:00 lab noted Assessment: 01/23/19 09:19 alcohol withdrawal sx Plan: continue librium detox regimen
[2019-01-23] MEDS: ASPIRIN 81 MG CHEWABLE TABLETS PO SCH (10:43)
[2019-01-23] MEDS: PRENATAL VITAMINS W/ FOLIC ACID TABLET (FP) PO SCH (10:43)
[2019-01-23] MEDS ORDERED: MIRTAZAPINE 15 MG TABLET (FP) ONE (20:05)
[2019-01-23] MEDS: THIAMINE HCL 100 MG TABLET (FP) PO SCH (22:15)
[2019-01-23] MEDS: ATORVASTATIN CA 40 MG TABLET (FP) PO SCH (22:16)
[2019-01-23] MEDS: MIRTAZAPINE 30 MG TABLET (FP) PO SCH (22:16)
[2019-01-24] MEDS ORDERED: chlordiazePOXIDE HCL 10 MG CAPSULE PO PRN
[2019-01-24] MEDS: chlordiazePOXIDE HCL 10 MG CAPSULE PO SCH ×3 (05:55→22:08)
[2019-01-24] MEDS: PRENATAL VITAMINS W/ FOLIC ACID TABLET (FP) PO SCH (10:14)
[2019-01-24] MEDS: ASPIRIN 81 MG CHEWABLE TABLETS PO SCH (10:14)
--- NOTE | 2019-01-24 14:15 | PN ---
[facility] CIWA - CIWA Score Nausea/Vomitin-Mild Nausea/No Vomiting Muscle Tremors: 2 Anxiety: 2 Agitation: 2 Paroxysmal Sweats: 1-Minimal Palms Moist Orientation: 0-Oriented Tacttile Disturbances: 0-None Auditory Disturbances: 0-None Visual Disturbances: 0-None Headache: 0-None Present CIWA-Ar Total Score: 8 [facility] Progress Note (SOAP) Subjective: 53 years old male admitted on 01/21/19 for alcohol withdrawal sx management treated with librium detox regimen feeling better less tremor mild anxiety Objective: 01/24/19 14:14 Vital Signs Temperature 98.5 F 01/24/19 13:22 Pulse Rate 79 01/24/19 13:22 Respiratory Rate 18 01/24/19 13:22 Blood Pressure 139/88 01/24/19 13:22 O2 Sat by Pulse Oximetry (%) Laboratory Last Values WBC 5.7 K/mm3 (4.0-10.0) 01/22/19 08:00 RBC 5.12 M/mm3 (4.00-5.60) 01/22/19 08:00 Hgb 14.9 GM/dL (11.7-16.9) 01/22/19 08:00 Hct 45.1 % (35.4-49) 01/22/19 08:00 MCV 88.0 fl (80-96) 01/22/19 08:00 MCH 29.2 pg (25.7-33.7) 01/22/19 08:00 MCHC 33.2 g/dl (32.0-35.9) 01/22/19 08:00 RDW 15.2 % (11.9-15.9) 01/22/19 08:00 Plt Count 223 K/MM3 (134-434) 01/22/19 08:00 MPV 10.2 fl (7.5-11.1) 01/22/19 08:00 Sodium 138 mmol/L (136-145) 01/22/19 08:00 Potassium 4.0 mmol/L (3.5-5.1) 01/22/19 08:00 Chloride 104 mmol/L (98-107) 01/22/19 08:00 Carbon Dioxide 31 mmol/L (21-32) 01/22/19 08:00 Anion Gap 3 MMOL/L (8-16) L 01/22/19 08:00 BUN 18.6 mg/dL (7-18) H 01/22/19 08:00 Creatinine 1.0 mg/dL (0.55-1.3) 01/22/19 08:00 Est GFR (CKD-EPI)AfAm 100.55 01/22/19 08:00 Est GFR (CKD-EPI)NonAf 86.76 01/22/19 08:00 Random Glucose 91 mg/dL (74-106) 01/22/19 08:00 Calcium 8.9 mg/dL (8.5-10.1) 01/22/19 08:00 Total Bilirubin 0.4 mg/dL (0.2-1) 01/22/19 08:00 AST 21 U/L (15-37) 01/22/19 08:00 ALT 24 U/L (13-61) 01/22/19 08:00 Alkaline Phosphatase 91 U/L (45-117) 01/22/19 08:00 Total Protein 6.9 g/dl (6.4-8.2) 01/22/19 08:00 Albumin 3.4 g/dl (3.4-5.0) 01/22/19 08:00 RPR Titer Nonreactive (NONREACTIVE) 01/22/19 08:00 lab noted Assessment: 01/24/19 14:14 alcohol withdrawal sx Plan: continue librium detox regimen
[2019-01-24] MEDS ORDERED: MIRTAZAPINE 15 MG TABLET (FP) ONE (21:21)
[2019-01-24 21:30] VITALS: TEMP 98.6
[2019-01-24] MEDS: THIAMINE HCL 100 MG TABLET (FP) PO SCH (22:07)
[2019-01-24] MEDS: MIRTAZAPINE 30 MG TABLET (FP) PO SCH (22:09)
[2019-01-24] MEDS: ATORVASTATIN CA 40 MG TABLET (FP) PO SCH (22:09)
[2019-01-25] MEDS ORDERED: chlordiazePOXIDE HCL 10 MG CAPSULE PO ONE (05:00)
[2019-01-25 09:18] VITALS: BP 112/70; PULSE 70
--- NOTE | 2019-01-25 09:37 | DS ---
[facility] Detox Discharge Summary Admission Date: 01/21/19 Discharge Date: 01/25/19 - History Present History: Alcohol Dependence Additional Comments: 53 years old male admitted on 01/21/19 for alcohol withdrawal sx management treated with librium detox regimen patient tolerated well patient is alert oriented x 3 cardiac S1S2 regular rate rhythm respiratory clear lung bilaterally on auscultation extremities full rang of eric - Physical Exam Results Vital Signs: Vital Signs Temperature 98.6 F 01/25/19 09:17 Pulse Rate 70 01/25/19 09:17 Respiratory Rate 18 01/25/19 09:17 Blood Pressure 112/70 01/25/19 09:17 O2 Sat by Pulse Oximetry (%) Pertinent Admission Physical Exam Findings: alcohol withdrawal sx Laboratory Last Values WBC 5.7 K/mm3 (4.0-10.0) 01/22/19 08:00 RBC 5.12 M/mm3 (4.00-5.60) 01/22/19 08:00 Hgb 14.9 GM/dL (11.7-16.9) 01/22/19 08:00 Hct 45.1 % (35.4-49) 01/22/19 08:00 MCV 88.0 fl (80-96) 01/22/19 08:00 MCH 29.2 pg (25.7-33.7) 01/22/19 08:00 MCHC 33.2 g/dl (32.0-35.9) 01/22/19 08:00 RDW 15.2 % (11.9-15.9) 01/22/19 08:00 Plt Count 223 K/MM3 (134-434) 01/22/19 08:00 MPV 10.2 fl (7.5-11.1) 01/22/19 08:00 Sodium 138 mmol/L (136-145) 01/22/19 08:00 Potassium 4.0 mmol/L (3.5-5.1) 01/22/19 08:00 Chloride 104 mmol/L (98-107) 01/22/19 08:00 Carbon Dioxide 31 mmol/L (21-32) 01/22/19 08:00 Anion Gap 3 MMOL/L (8-16) L 01/22/19 08:00 BUN 18.6 mg/dL (7-18) H 01/22/19 08:00 Creatinine 1.0 mg/dL (0.55-1.3) 01/22/19 08:00 Est GFR (CKD-EPI)AfAm 100.55 01/22/19 08:00 Est GFR (CKD-EPI)NonAf 86.76 01/22/19 08:00 Random Glucose 91 mg/dL (74-106) 01/22/19 08:00 Calcium 8.9 mg/dL (8.5-10.1) 01/22/19 08:00 Total Bilirubin 0.4 mg/dL (0.2-1) 01/22/19 08:00 AST 21 U/L (15-37) 01/22/19 08:00 ALT 24 U/L (13-61) 01/22/19 08:00 Alkaline Phosphatase 91 U/L (45-117) 01/22/19 08:00 Total Protein 6.9 g/dl (6.4-8.2) 01/22/19 08:00 Albumin 3.4 g/dl (3.4-5.0) 01/22/19 08:00 RPR Titer Nonreactive (NONREACTIVE) 01/22/19 08:00 lab noted patient agrees to bring in lab report to [facility] for follow - Treatment Hospital Course: Detox Protocol Followed, Detoxed Safely, Responded well, Discharged Condition Good, Rehab Referral Accepted Patient has Accepted a Rehab Referral to: [facility] - Medication Discharge Medications: Ambulatory Orders Mirtazapine [Remeron -] 30 mg PO HS 06/28/17 Aspirin [ASA -] 81 mg PO DAILY 12/15/18 Atorvastatin Ca [Lipitor] 40 mg PO HS 12/15/18 Multivitamins [Multivit ([facility] Formulary)] 1 tab PO DAILY 12/15/18 - Diagnosis (1) Alcohol dependence with uncomplicated withdrawal Current Visit: Yes Status: Acute (2) HTN (hypertension) Current Visit: Yes Status: Chronic Qualifiers: Hypertension type: essential hypertension Qualified Code(s): I10 - Essential (primary) hypertension (3) Nicotine dependence Current Visit: Yes Status: Acute Qualifiers: Nicotine product type: cigarettes Substance use status: in withdrawal Qualified Code(s): F17.213 - Nicotine dependence, cigarettes, with withdrawal (4) Substance induced mood disorder Current Visit: Yes Status: Suspected - AMA Did Patient Leave Against Medical Advice: No CIWA Score - CIWA Score Nausea/Vomitin-No Nausea/No Vomiting Muscle Tremors: 1-None Visible, but [place] Anxiety: 1-Mildly Anxious Agitation: 1-Slight > Activity Paroxysmal Sweats: 1-Minimal Palms Moist Orientation: 0-Oriented Tacttile Disturbances: 0-None Auditory Disturbances: 0-None Visual Disturbances: 0-None Headache: 0-None Present CIWA-Ar Total Score: 4
[2019-01-25] MEDS: PRENATAL VITAMINS W/ FOLIC ACID TABLET (FP) PO SCH (11:15)
[2019-01-25] MEDS: ASPIRIN 81 MG CHEWABLE TABLETS PO SCH (11:15)
== END 2019-01-25 11:52 | disposition home or self-care (01) | DRG 774 ==
LOC: YASAS 09:02 → Y3N 10:43
PROVIDERS: ADMIT Allergy & Immunology; ATTEND Allergy & Immunology
PROC: HZ2ZZZZ Detoxification Services for Substance Abuse Treatment (ICD-10-PCS; principal; 2019-01-21)
DX: F10.230 Alcohol dependence with withdrawal, uncomplicated (principal); F14.20 Cocaine dependence, uncomplicated; F17.213 Nicotine dependence, cigarettes, with withdrawal; F19.24 Other psychoactive substance dependence with psychoactive substance-induced mood disorder; F32.9 Major depressive disorder, single episode, unspecified; I10 Essential (primary) hypertension
CPT/HCPCS: 36415; 80053; 85027; 86593; 93005; 93010

== ENCOUNTER 2019-04-11 10:40 | Inpatient (IN) | payer OTHER ==
[2019-04-11 10:52] VITALS: BMI 31.3
--- NOTE | 2019-04-11 11:40 | HP ---
<Joyce Coreas - Last Filed: 04/12/19 08:11> CIWA Score - Admission Criteria OASAS Guidelines: Admission for Medically Managed Detox: Requires at least one of the followin. CIWA greater than 12 2. Seizures within the past 24 hours 3. Delirium tremens within the past 24 hours 4. Hallucinations within the past 24 hours 5. Acute intervention needed for co occurring medical disorder 6. Acute intervention needed for co occurring psychiatric disorder 7. Severe withdrawal that cannot be handled at a lower level of care (continued vomiting, continued diarrhea, abnormal vital signs) requiring intravenous medication and/or fluids 8. Admission ROS S - HPI Allergies/Adverse Reactions: Allergies Allergy/AdvReac Type Severity Reaction Status Date / Time No Known Allergies Allergy Verified 04/11/19 10:47 Admission Physical Exam S - Vital Signs Vital Signs: Vital Signs - 24 hr 04/11/19 04/11/19 04/11/19 10:47 13:19 19:09 Temperature 97.1 F L 97.3 F L 96.8 F L Pulse Rate 82 69 81 Respiratory 20 18 17 Rate Blood Pressure 144/90 143/73 132/80 04/11/19 04/12/19 04/12/19 23:29 00:40 03:45 Temperature 97.2 F L Pulse Rate 69 Respiratory 18 18 18 Rate Blood Pressure 144/72 04/12/19 06:48 Temperature 97.5 F L Pulse Rate 58 L Respiratory 17 Rate Blood Pressure 108/64 - Diagnostic (1) Alcohol dependence with uncomplicated withdrawal Current Visit: Yes Status: Chronic (2) Nicotine dependence Current Visit: Yes Status: Acute Qualifiers: Nicotine product type: cigarettes Substance use status: uncomplicated Qualified Code(s): F17.210 - Nicotine dependence, cigarettes, uncomplicated (3) Substance-induced sleep disorder Current Visit: No Status: Acute (4) Cocaine dependence, uncomplicated Current Visit: Yes Status: Chronic (5) Depression Current Visit: No Status: Chronic Qualifiers: Depression Type: unspecified Qualified Code(s): F32.9 - Major depressive disorder, single episode, unspecified (6) HTN (hypertension) Current Visit: Yes Status: Chronic Qualifiers: Hypertension type: essential hypertension Qualified Code(s): I10 - Essential (primary) hypertension (7) Insomnia Current Visit: No Status: Chronic Qualifiers: Insomnia type: unspecified Qualified Code(s): G47.00 - Insomnia, unspecified (8) Depressive disorder Current Visit: No Status: Suspected (9) Substance induced mood disorder Current Visit: No Status: Suspected Cleared for Admission [facility] - Detox or Rehab [facility] Level of Care: Medically Managed Detox Regimen/Protocol: Librium Claeared for Rehab Admission: No Inpatient Rehab Admission - Rehab Decision to Admit Inpatient rehab admission?: No <Linda Benson - Last Filed: 04/12/19 12:59> CIWA Score Nausea/Vomitin-Mild Nausea/No Vomiting Muscle Tremors: 4-Moderate,w/Arms Extend Anxiety: 0-No Anxiety, at Ease Agitation: 0-Normal Activity Paroxysmal Sweats: 4-Forehead w/Sweat Beads Orientation: 0-Oriented Tacttile Disturbances: 0-None Auditory Disturbances: 0-None Visual Disturbances: 0-None Headache: 1-Very Mild CIWA-Ar Total Score: 10 - Admission Criteria OASAS Guidelines: Admission for Medically Managed Detox: Requires at least one of the followin. CIWA greater than 12 2. Seizures within the past 24 hours 3. Delirium tremens within the past 24 hours 4. Hallucinations within the past 24 hours 5. Acute intervention needed for co occurring medical disorder 6. Acute intervention needed for co occurring psychiatric disorder 7. Severe withdrawal that cannot be handled at a lower level of care (continued vomiting, continued diarrhea, abnormal vital signs) requiring intravenous medication and/or fluids 8. Admitting History and Physical - Admission Chief Complaint: Mr Womack presents asking for admission for alcohol use disorder. His last drink was a "couple of hours ago". He smokes tobacco, one half pack per day. He currently feels mild nausea, tremulousness and diaphoresis. History of blackouts with last episode a few days ago. No history of seizures. History Source: Patient Limitations to Obtaining History: No Limitations - Past Medical History Cardiovascular: Yes: HTN, Other (Hyperlipidemia) Infectious Disease: Yes: Other (HiV tested 6 weeks ago, negative results) - Past Surgical History Past Surgical History: Yes: None - Smoking History Smoking history: Current every day smoker Have you smoked in the past 12 months: Yes Aproximately how many cigarettes per day: 8 - Alcohol/Substance Use Hx Alcohol Use: Yes - Social History Usual Living Arrangement: Yes: Other (lives with brother in their home) Do you think of yourself as: Straight/Heterosexual ADL: Independent 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, 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 History of Recent Travel: No Admission ROS S - Ebola screening Have you traveled outside of the country in the last 21 days: No Have you had contact with anyone from an Ebola affected area: No Do you have a fever: No Patient History - Patient Medical History Hx Anemia: No Hx Asthma: No Hx Chronic Obstructive Pulmonary Disease (COPD): No Hx Cancer: No Hx Cardiac Disorders: No Hx Congestive Heart Failure: No Hx Hypertension: Yes (pre hypertension) Hx Hypercholesterolemia: No HX Cerebrovascular Accident: No Hx Seizures: No Hx Diabetes: No Hx Gastrointestinal Disorders: No Hx Liver Disease: No Hx Genitourinary Disorders: No Hx Sexually Transmitted Disorders: No Hx Renal Disease (ESRD): No Hx Thyroid Disease: No Hx Human Immunodeficiency Virus (HIV): No (Negative 2018 last 917) Hx Hepatitis C: No Hx Depression: Yes Hx Suicide Attempt: No Hx Bipolar Disorder: No Hx Schizophrenia: No - Patient Surgical History Past Surgical History: Yes Hx Neurologic Surgery: No Hx Cataract Extraction: No Hx Cardiac Surgery: No Hx Lung Surgery: No Hx Breast Surgery: No Hx Breast Biopsy: No Hx Abdominal Surgery: No Hx Appendectomy: No Hx Cholecystectomy: No Hx Genitourinary Surgery: No Hx Section: No Hx Orthopedic Surgery: No Other Surgical History: left inguinal hernia repair at age 24 mos. Anesthesia Reaction: No - PPD History Date: 01/23/19 Results: 0 mm - Smoking Cessation Smoking history: Current every day smoker Have you smoked in the past 12 months: Yes Aproximately how many cigarettes per day: 8 Hx Chewing Tobacco Use: No - Substances abused Alcohol Substance route: Oral Frequency: Daily Amount used: 4-5 6pk beer Age of first use: 16 Date of last use: 04/11/19 Cocaine Substance route: Inhalation Frequency: 3-6 times per week Amount used: 1/2 gram Age of first use: 25 Date of last use: 04/10/19 Admission Physical Exam [facility] - Vital Signs Vital Signs: Vital Signs - 24 hr 04/11/19 10:47 Temperature 97.1 F L Pulse Rate 82 Respiratory 20 Rate Blood Pressure 144/90 - Physical General Appearance: Yes: Within Normal Limits HEENTM: Yes: Within Normal Limits Respiratory: Yes: Normal Breath Sounds Neck: Yes: Supple Breast: Yes: Breast Exam Deferred Cardiology: Yes: Regular Rhythm, Regular Rate Abdominal: Yes: Normal Bowel Sounds Genitourinary: Yes: Within Normal Limits Back: Yes: Normal Inspection Musculoskeletal: Yes: Gait Steady Extremities: Yes: Within Normal Limits Neurological: Yes: Within Normal Limits Breathalyzer - Breathalyzer Breathalyzer: 0 (last use hours ago may be out of system) Urine Drug Screen - Test Device Lot number: [id number] Expiration date: 10/18/20 - Control Is test valid?: Yes - Results Drug screen NEGATIVE: No Urine drug screen results: LILY-Cocaine, BZO-Benzodiazepines
[2019-04-11] MEDS ORDERED: chlordiazePOXIDE HCL 10 MG CAPSULE PO PRN (11:46)
[2019-04-11] MEDS ORDERED: BISMUTH SUBSALICYLATE 262 MG/15 ML BTL PO PRN (11:48)
[2019-04-11] MEDS ORDERED: MAG HYDROX/AL HYDROX/SIMETH 30 ML UNIT-DOSE CUP PO PRN (11:48)
[2019-04-11] MEDS ORDERED: MELATONIN 5 MG TABLETS PO PRN (11:48)
[2019-04-11] MEDS ORDERED: IBUPROFEN 400 MG TABLET (FP) PO PRN (11:48)
[2019-04-11] MEDS ORDERED: MENTHOL/PHENOL 1 EACH UD MM PRN (11:48)
[2019-04-11] MEDS ORDERED: MAGNESIUM CITRATE 300 ML BOTTLE PO PRN (11:48)
[2019-04-11] MEDS ORDERED: MAGNESIUM HYDROX 2400MG/30ML ORAL SUSPENSION 30 ML CUP PO PRN (11:48)
[2019-04-11] MEDS ORDERED: METHOCARBAMOL 500 MG TABLET PO PRN (11:48)
[2019-04-11] MEDS ORDERED: ACETAMINOPHEN 325 MG TABLET (FP) PO PRN ×2 (11:48)
[2019-04-11] MEDS ORDERED: hydrOXYzine PAMOATE 25 MG CAPSULE (FP) PO PRN (11:48)
[2019-04-11] MEDS: chlordiazePOXIDE HCL 25 MG CAPSULE PO SCH ×2 (12:55→21:26)
[2019-04-11 17:46] LABS: HEMATOCRIT 42.9 % (35.4-49); HEMOGLOBIN 14.4 GM/dL (11.7-16.9); MCH 29.7 pg (25.7-33.7); MCHC 33.5 g/dl (32.0-35.9); MEAN CELL VOLUME 88.7 fl (80-96); MEAN PLT VOLUME 9.5 fl (7.5-11.1); PLATELET COUNT 278 K/MM3 (134-434); RBC 4.84 M/mm3 (4.00-5.60); RDW 15.4 % (11.9-15.9); WHITE BLOOD COUNT 5.8 K/mm3 (4.0-10.0)
[2019-04-11 18:04] LABS: ALBUMIN 3.7 g/dl (3.4-5.0); BILIRUBIN,TOTAL 0.4 mg/dL (0.2-1); BLOOD UREA NITROGEN 14.4 mg/dL (7-18); POTASSIUM 4.3 mmol/L (3.5-5.1); TOT PROT 7.6 g/dl (6.4-8.2)
[2019-04-12] MEDS: chlordiazePOXIDE HCL 25 MG CAPSULE PO SCH ×3 (07:42→21:14)
[2019-04-12] MEDS ORDERED: ATORVASTATIN CA 40 MG TABLET (FP) PO SCH (10:00)
--- NOTE | 2019-04-12 12:51 | PN ---
[facility] CIWA - CIWA Score Nausea/Vomitin-No Nausea/No Vomiting Muscle Tremors: 1-None Visible, but [place] Anxiety: 1-Mildly Anxious Agitation: 0-Normal Activity Paroxysmal Sweats: No Perspiration Orientation: 0-Oriented Tacttile Disturbances: 0-None Auditory Disturbances: 0-None Visual Disturbances: 0-None Headache: 0-None Present CIWA-Ar Total Score: 2 [facility] Progress Note (SOAP) Subjective: No complaints, asking to have Ensure with lunch and dinner Objective: 04/12/19 12:48 Vital Signs Temperature 97.7 F 04/12/19 11:32 Pulse Rate 70 04/12/19 11:32 Respiratory Rate 18 04/12/19 11:32 Blood Pressure 115/71 04/12/19 11:32 O2 Sat by Pulse Oximetry (%) Laboratory Last Values WBC 5.8 K/mm3 (4.0-10.0) 04/11/19 13:15 RBC 4.84 M/mm3 (4.00-5.60) 04/11/19 13:15 Hgb 14.4 GM/dL (11.7-16.9) 04/11/19 13:15 Hct 42.9 % (35.4-49) 04/11/19 13:15 MCV 88.7 fl (80-96) 04/11/19 13:15 MCH 29.7 pg (25.7-33.7) 04/11/19 13:15 MCHC 33.5 g/dl (32.0-35.9) 04/11/19 13:15 RDW 15.4 % (11.9-15.9) 04/11/19 13:15 Plt Count 278 K/MM3 (134-434) D 04/11/19 13:15 MPV 9.5 fl (7.5-11.1) 04/11/19 13:15 Sodium 138 mmol/L (136-145) 04/11/19 13:15 Potassium 4.3 mmol/L (3.5-5.1) 04/11/19 13:15 Chloride 105 mmol/L (98-107) 04/11/19 13:15 Carbon Dioxide 27 mmol/L (21-32) 04/11/19 13:15 Anion Gap 5 MMOL/L (8-16) L 04/11/19 13:15 BUN 14.4 mg/dL (7-18) 04/11/19 13:15 Creatinine 1.0 mg/dL (0.55-1.3) 04/11/19 13:15 Est GFR (CKD-EPI)AfAm 100.55 04/11/19 13:15 Est GFR (CKD-EPI)NonAf 86.76 04/11/19 13:15 Random Glucose 88 mg/dL (74-106) 04/11/19 13:15 Calcium 9.0 mg/dL (8.5-10.1) 04/11/19 13:15 Total Bilirubin 0.4 mg/dL (0.2-1) 04/11/19 13:15 AST 21 U/L (15-37) 04/11/19 13:15 ALT 33 U/L (13-61) 04/11/19 13:15 Alkaline Phosphatase 113 U/L (45-117) 04/11/19 13:15 Total Protein 7.6 g/dl (6.4-8.2) 04/11/19 13:15 Albumin 3.7 g/dl (3.4-5.0) 04/11/19 13:15 RPR Titer Nonreactive (NONREACTIVE) 04/11/19 13:15 Gnl: WDWN, in no distress Mental status: initially sleeping on rounds, then awake, ambulating in hallway, alert, attentive, normal language function Motor: ambulating without difficulty, moves all limbs well Assessment: 04/12/19 12:50 1. Alcohol withdrawal 04/12/19 12:51 Plan: 1. Alcohol withdrawal protocol 2. change to Ensure bid
--- NOTE | 2019-04-12 13:08 | HP ---
CIWA Score Nausea/Vomitin-No Nausea/No Vomiting Muscle Tremors: 3 Anxiety: 2 Agitation: 3 Paroxysmal Sweats: 3 Orientation: 0-Oriented Tacttile Disturbances: 0-None Auditory Disturbances: 0-None Visual Disturbances: 0-None Headache: 0-None Present CIWA-Ar Total Score: 11 - Admission Criteria OASAS Guidelines: Admission for Medically Managed Detox: Requires at least one of the followin. CIWA greater than 12 2. Seizures within the past 24 hours 3. Delirium tremens within the past 24 hours 4. Hallucinations within the past 24 hours 5. Acute intervention needed for co occurring medical disorder 6. Acute intervention needed for co occurring psychiatric disorder 7. Severe withdrawal that cannot be handled at a lower level of care (continued vomiting, continued diarrhea, abnormal vital signs) requiring intravenous medication and/or fluids 8. Admitting History and Physical - Admission Chief Complaint: I need detox History Source: Patient Limitations to Obtaining History: No Limitations - Past Surgical History Past Surgical History: Yes: Hernia Repair - Smoking History Smoking history: Current every day smoker Have you smoked in the past 12 months: Yes Aproximately how many cigarettes per day: 8 - Alcohol/Substance Use Hx Alcohol Use: Yes Number of Drinks Daily: 40 History of Substance Use: reports: Cocaine - Social History Usual Living Arrangement: Yes: Alone ADL: Independent History of Recent Travel: No Admission ROS [facility] Chief Complaint: I need detox Allergies/Adverse Reactions: Allergies Allergy/AdvReac Type Severity Reaction Status Date / Time No Known Allergies Allergy Verified 04/11/19 10:47 History of Present Illness: Pt is a 53yrold male with a history of alcohol dependence seeking detox for treatment. Exam Limitations: No Limitations - Ebola screening Have you traveled outside of the country in the last 21 days: No Have you had contact with anyone from an Ebola affected area: No Have you been sick,other than usual withdrawal symptoms: No Do you have a fever: No - Review of Systems Constitutional: Chills, Diaphoresis EENT: reports: No Symptoms Reported Respiratory: reports: No Symptoms reported Cardiac: reports: Syncope GI: reports: Poor Appetite, Poor Fluid Intake : reports: No Symptoms Reported Musculoskeletal: reports: No Symptoms Reported Integumentary: reports: No Symptoms Reported Neuro: reports: Tremors Endocrine: reports: Excessive Sweating, Flushing Hematology: reports: No Symptoms Reported Psychiatric: reports: Judgement Intact, Mood/Affect Appropiate, Orientated x3, Agitated, Anxious Other Systems: Reviewed and Negative Patient History - Patient Medical History Hx Anemia: No Hx Asthma: No Hx Chronic Obstructive Pulmonary Disease (COPD): No Hx Cancer: No Hx Cardiac Disorders: No Hx Congestive Heart Failure: No Hx Hypertension: Yes Hx Hypercholesterolemia: No HX Cerebrovascular Accident: No Hx Seizures: No Hx Diabetes: No Hx Gastrointestinal Disorders: No Hx Liver Disease: No Hx Genitourinary Disorders: No Hx Sexually Transmitted Disorders: No Hx Renal Disease (ESRD): No Hx Thyroid Disease: No Hx Human Immunodeficiency Virus (HIV): No (Negative 2018 last 917) Hx Hepatitis C: No Hx Depression: No Hx Suicide Attempt: No Hx Bipolar Disorder: No Hx Schizophrenia: No - Patient Surgical History Past Surgical History: Yes Hx Neurologic Surgery: No Hx Cataract Extraction: No Hx Cardiac Surgery: No Hx Lung Surgery: No Hx Breast Surgery: No Hx Breast Biopsy: No Hx Abdominal Surgery: No Hx Appendectomy: No Hx Cholecystectomy: No Hx Genitourinary Surgery: No Hx Section: No Hx Orthopedic Surgery: No Other Surgical History: left inguinal hernia repair at age 24 mos. Anesthesia Reaction: No - PPD History Previous Implant?: Yes Documented Results: Negative w/o proof Implanted On Prior R Admission?: No Date: 01/23/19 Results: 0 mm PPD to be Administered?: No - Reproductive History Patient is a Female of Child Bearing Age (11 -55 yrs old): No - Smoking Cessation Smoking history: Current every day smoker Have you smoked in the past 12 months: Yes Aproximately how many cigarettes per day: 8 Hx Chewing Tobacco Use: No Initiated information on smoking cessation: Yes 'Breaking Loose' booklet given: 04/11/19 - Substance & Tx. History Hx Alcohol Use: Yes Hx Substance Use: Yes Substance Use Type: Alcohol, Cocaine Hx Substance Use Treatment: Yes - Substances abused Alcohol Substance route: Oral Frequency: Daily Amount used: 4-5 6pk beer Age of first use: 16 Date of last use: 04/11/19 Admission Physical Exam [facility] - Vital Signs Vital Signs: Vital Signs - 24 hr 04/11/19 04/11/19 04/11/19 13:19 19:09 23:29 Temperature 97.3 F L 96.8 F L 97.2 F L Pulse Rate 69 81 69 Respiratory 18 17 18 Rate Blood Pressure 143/73 132/80 144/72 04/12/19 04/12/19 04/12/19 00:40 03:45 06:48 Temperature 97.5 F L Pulse Rate 58 L Respiratory 18 18 17 Rate Blood Pressure 108/64 04/12/19 11:32 Temperature 97.7 F Pulse Rate 70 Respiratory 18 Rate Blood Pressure 115/71 - Physical General Appearance: Yes: Appropriately Dressed, Moderate Distress, Irritable, Sweating, Anxious HEENTM: Yes: Hearing grossly Normal, Normal Voice Respiratory: Yes: Lungs Clear, Normal Breath Sounds, No Respiratory Distress Neck: Yes: No masses,lesions,Nodules Breast: Yes: Within Normal Limits Cardiology: Yes: Regular Rhythm, Regular Rate, S1, S2 Abdominal: Yes: Normal Bowel Sounds, Non Tender, Soft Genitourinary: Yes: Within Normal Limits Back: Yes: Normal Inspection Musculoskeletal: Yes: full range of Motion Extremities: Yes: Normal Inspection, Non-Tender, Tremors Neurological: Yes: Fully Oriented, Alert, Normal Response Integumentary: Yes: Normal Color, Diaphoresis Lymphatic: Yes: Within Normal Limits - Diagnostic (1) Alcohol dependence with uncomplicated withdrawal Current Visit: Yes Status: Chronic (2) Nicotine dependence Current Visit: Yes Status: Acute Qualifiers: Nicotine product type: cigarettes Substance use status: uncomplicated Qualified Code(s): F17.210 - Nicotine dependence, cigarettes, uncomplicated (3) Substance-induced sleep disorder Current Visit: No Status: Acute (4) Cocaine dependence, uncomplicated Current Visit: Yes Status: Chronic (5) Depression Current Visit: No Status: Chronic Qualifiers: Depression Type: unspecified Qualified Code(s): F32.9 - Major depressive disorder, single episode, unspecified (6) HTN (hypertension) Current Visit: Yes Status: Chronic Qualifiers: Hypertension type: essential hypertension Qualified Code(s): I10 - Essential (primary) hypertension (7) Insomnia Current Visit: No Status: Chronic Qualifiers: Insomnia type: unspecified Qualified Code(s): G47.00 - Insomnia, unspecified (8) Depressive disorder Current Visit: No Status: Suspected (9) Substance induced mood disorder Current Visit: No Status: Suspected Cleared for Admission [facility] - Detox or Rehab S Level of Care: Medically Managed Detox Regimen/Protocol: Librium Breathalyzer - Breathalyzer Breathalyzer: 0 Urine Drug Screen - Test Device Lot number: [id number] Expiration date: 10/18/20 - Control Is test valid?: Yes - Results Drug screen NEGATIVE: No Urine drug screen results: LILY-Cocaine, BZO-Benzodiazepines Inpatient Rehab Admission - Rehab Decision to Admit Inpatient rehab admission?: No
[2019-04-12] MEDS: NICOTINE 14 MG/24 HOURS TOPICAL PATCH TD SCH (13:51)
[2019-04-12] MEDS: PRENATAL VITAMINS W/ FOLIC ACID TABLET (FP) PO SCH (13:51)
[2019-04-12] MEDS: ASPIRIN 81 MG CHEWABLE TABLETS PO SCH (14:04)
[2019-04-12] MEDS: ATORVASTATIN CA 40 MG TABLET (FP) PO SCH (22:14)
[2019-04-13] MEDS: chlordiazePOXIDE 5 MG CAPSULE PO SCH ×3 (06:39→21:03)
--- NOTE | 2019-04-13 10:52 | PN ---
S CIWA - CIWA Score Nausea/Vomitin-No Nausea/No Vomiting Muscle Tremors: None Anxiety: 0-No Anxiety, at Ease Agitation: 1-Slight > Activity Paroxysmal Sweats: 1-Minimal Palms Moist Orientation: 0-Oriented Tacttile Disturbances: 0-None Auditory Disturbances: 0-None Visual Disturbances: 0-None Headache: 0-None Present (feels tired) CIWA-Ar Total Score: 2 [facility] Progress Note (SOAP) Subjective: Complains of feeling tired and diaphoretic Objective: 04/13/19 10:50 Laboratory Last Values WBC 5.8 K/mm3 (4.0-10.0) 04/11/19 13:15 RBC 4.84 M/mm3 (4.00-5.60) 04/11/19 13:15 Hgb 14.4 GM/dL (11.7-16.9) 04/11/19 13:15 Hct 42.9 % (35.4-49) 04/11/19 13:15 MCV 88.7 fl (80-96) 04/11/19 13:15 MCH 29.7 pg (25.7-33.7) 04/11/19 13:15 MCHC 33.5 g/dl (32.0-35.9) 04/11/19 13:15 RDW 15.4 % (11.9-15.9) 04/11/19 13:15 Plt Count 278 K/MM3 (134-434) D 04/11/19 13:15 MPV 9.5 fl (7.5-11.1) 04/11/19 13:15 Sodium 138 mmol/L (136-145) 04/11/19 13:15 Potassium 4.3 mmol/L (3.5-5.1) 04/11/19 13:15 Chloride 105 mmol/L (98-107) 04/11/19 13:15 Carbon Dioxide 27 mmol/L (21-32) 04/11/19 13:15 Anion Gap 5 MMOL/L (8-16) L 04/11/19 13:15 BUN 14.4 mg/dL (7-18) 04/11/19 13:15 Creatinine 1.0 mg/dL (0.55-1.3) 04/11/19 13:15 Est GFR (CKD-EPI)AfAm 100.55 04/11/19 13:15 Est GFR (CKD-EPI)NonAf 86.76 04/11/19 13:15 Random Glucose 88 mg/dL (74-106) 04/11/19 13:15 Calcium 9.0 mg/dL (8.5-10.1) 04/11/19 13:15 Total Bilirubin 0.4 mg/dL (0.2-1) 04/11/19 13:15 AST 21 U/L (15-37) 04/11/19 13:15 ALT 33 U/L (13-61) 04/11/19 13:15 Alkaline Phosphatase 113 U/L (45-117) 04/11/19 13:15 Total Protein 7.6 g/dl (6.4-8.2) 04/11/19 13:15 Albumin 3.7 g/dl (3.4-5.0) 04/11/19 13:15 RPR Titer Nonreactive (NONREACTIVE) 04/11/19 13:15 Vital Signs Temperature 98.1 F 04/13/19 10:00 Pulse Rate 69 04/13/19 10:00 Respiratory Rate 18 04/13/19 10:00 Blood Pressure 133/65 04/13/19 10:00 O2 Sat by Pulse Oximetry (%) PE Gnl: WDWN, in NAD MS: awake, alert, normal language skills Motor: amubating in halls without gait instability Assessment: 04/13/19 10:51 1. Alcohol withdrawal Plan: 1. continue alcohol withdrawal protocol
[2019-04-13] MEDS: PRENATAL VITAMINS W/ FOLIC ACID TABLET (FP) PO SCH (10:58)
[2019-04-13] MEDS: ASPIRIN 81 MG CHEWABLE TABLETS PO SCH (10:59)
[2019-04-13] MEDS: NICOTINE 14 MG/24 HOURS TOPICAL PATCH TD SCH (11:00)
[2019-04-13] MEDS: ATORVASTATIN CA 40 MG TABLET (FP) PO SCH (22:03)
[2019-04-14] MEDS ORDERED: chlordiazePOXIDE HCL 10 MG CAPSULE PO PRN
[2019-04-14] MEDS: chlordiazePOXIDE HCL 10 MG CAPSULE PO SCH ×3 (06:04→23:26)
[2019-04-14] MEDS: NICOTINE 14 MG/24 HOURS TOPICAL PATCH TD SCH (10:52)
[2019-04-14] MEDS: PRENATAL VITAMINS W/ FOLIC ACID TABLET (FP) PO SCH (10:52)
[2019-04-14] MEDS: ASPIRIN 81 MG CHEWABLE TABLETS PO SCH (10:52)
[2019-04-14] MEDS ORDERED: ONDANSETRON *ODT* 4 MG TABLET SL PRN (11:53)
--- NOTE | 2019-04-14 17:00 | PN ---
S CIWA - CIWA Score Nausea/Vomitin Muscle Tremors: None Anxiety: 2 Agitation: 1-Slight > Activity Paroxysmal Sweats: 2 Orientation: 0-Oriented Tacttile Disturbances: 0-None Auditory Disturbances: 0-None Visual Disturbances: 0-None Headache: 0-None Present CIWA-Ar Total Score: 7 [facility] Progress Note (SOAP) Subjective: Nausea, Fatigue, Sweating. Patient reports that hew vomited X 1 last night, but that nausea is subsiding today. Objective: PATIENT A & O X 3, OBSERVED AMBULATING ON DETOX UNIT UNASSISTED. IN NO ACUTE DISTRESS. 04/14/19 16:58 Vital Signs Temperature 98.2 F 04/14/19 10:00 Pulse Rate 70 04/14/19 10:00 Respiratory Rate 04/14/19 10:00 Blood Pressure 123/83 04/14/19 10:00 O2 Sat by Pulse Oximetry (%) Laboratory Tests 04/11/19 04/11/19 04/11/19 13:15 13:15 13:15 WBC 5.8 RBC 4.84 Hgb 14.4 Hct 42.9 MCV 88.7 MCH 29.7 MCHC 33.5 RDW 15.4 Plt Count 278 D MPV 9.5 Sodium 138 Potassium 4.3 Chloride 105 Carbon Dioxide 27 Anion Gap 5 L BUN 14.4 Creatinine 1.0 Est GFR (CKD-EPI)AfAm 100.55 Est GFR (CKD-EPI)NonAf 86.76 Random Glucose 88 Calcium 9.0 Total Bilirubin 0.4 AST 21 ALT 33 Alkaline Phosphatase 113 Total Protein 7.6 Albumin 3.7 RPR Titer Nonreactive LABS NOTED. Assessment: 04/14/19 16:59 WITHDRAWAL SYMPTOMS. Plan: CONTINUE DETOX. PATIENT SCHEDULED FOR D/C FROM DETOX UNIT TOMORROW.
[2019-04-14] MEDS: ATORVASTATIN CA 40 MG TABLET (FP) PO SCH (22:23)
[2019-04-15] MEDS ORDERED: chlordiazePOXIDE HCL 10 MG CAPSULE PO ONE (05:00)
[2019-04-15] MEDS: ASPIRIN 81 MG CHEWABLE TABLETS PO SCH (09:16)
[2019-04-15] MEDS: PRENATAL VITAMINS W/ FOLIC ACID TABLET (FP) PO SCH (09:16)
[2019-04-15] MEDS: NICOTINE 14 MG/24 HOURS TOPICAL PATCH TD SCH (09:40)
[2019-04-15 14:35] VITALS: BP 154/81; PULSE 89; TEMP 97.5
--- NOTE | 2019-04-15 16:31 | DS ---
[facility] Detox Discharge Summary Admission Date: 04/11/19 Discharge Date: 04/15/19 - History Present History: Alcohol Dependence Additional Comments: Patient completed detox successfully and discharged safely in stable condition. Instructed to follow up with PCP within 1-2 weeks. Pertinent Past History: Alcohol dependence HTN Nicotine dependence - Physical Exam Results Vital Signs: Vital Signs Temperature 97.5 F L 04/15/19 14:34 Pulse Rate 89 04/15/19 14:34 Respiratory Rate 16 04/15/19 14:34 Blood Pressure 154/81 04/15/19 14:34 O2 Sat by Pulse Oximetry (%) Pertinent Admission Physical Exam Findings: Withdrawal sxs Laboratory Tests 04/11/19 04/11/19 04/11/19 13:15 13:15 13:15 WBC 5.8 RBC 4.84 Hgb 14.4 Hct 42.9 MCV 88.7 MCH 29.7 MCHC 33.5 RDW 15.4 Plt Count 278 D MPV 9.5 Sodium 138 Potassium 4.3 Chloride 105 Carbon Dioxide 27 Anion Gap 5 L BUN 14.4 Creatinine 1.0 Est GFR (CKD-EPI)AfAm 100.55 Est GFR (CKD-EPI)NonAf 86.76 Random Glucose 88 Calcium 9.0 Total Bilirubin 0.4 AST 21 ALT 33 Alkaline Phosphatase 113 Total Protein 7.6 Albumin 3.7 RPR Titer Nonreactive Labs reviewed - Treatment Hospital Course: Detox Protocol Followed, Detoxed Safely, Responded well, Discharged Condition Good - Medication Discharge Medications: Ambulatory Orders Aspirin [ASA -] 81 mg PO DAILY 12/15/18 Atorvastatin Ca [Lipitor] 40 mg PO HS 12/15/18 Multivitamins [Multivit ([facility] Formulary)] 1 tab PO DAILY 12/15/18 Thiamine HCl [Vitamin B-1] 100 mg PO DAILY 03/02/19 - Diagnosis (1) Nicotine dependence Status: Chronic Qualifiers: Nicotine product type: cigarettes Substance use status: uncomplicated Qualified Code(s): F17.210 - Nicotine dependence, cigarettes, uncomplicated (2) Alcohol dependence with uncomplicated withdrawal Status: Acute (3) HTN (hypertension) Status: Chronic Qualifiers: Hypertension type: essential hypertension Qualified Code(s): I10 - Essential (primary) hypertension - AMA Did Patient Leave Against Medical Advice: No (Instructed to follow up with PCP within 1-2 weeks)
== END 2019-04-15 13:33 | disposition home or self-care (01) | DRG 774 ==
LOC: YASAS 10:40 → Y6N 11:58
PROVIDERS: ADMIT Allergy & Immunology; ATTEND Allergy & Immunology
PROC: HZ2ZZZZ Detoxification Services for Substance Abuse Treatment (ICD-10-PCS; principal; 2019-04-11)
DX: F10.230 Alcohol dependence with withdrawal, uncomplicated (principal); F14.20 Cocaine dependence, uncomplicated; F17.210 Nicotine dependence, cigarettes, uncomplicated; F19.24 Other psychoactive substance dependence with psychoactive substance-induced mood disorder; F19.282 Other psychoactive substance dependence with psychoactive substance-induced sleep disorder; F32.9 Major depressive disorder, single episode, unspecified; I10 Essential (primary) hypertension; G47.00 Insomnia, unspecified
CPT/HCPCS: 36415; 80053; 85027; 86593

== ENCOUNTER 2019-11-10 16:20 | Inpatient (IN) | payer OTHER ==
--- NOTE | 2019-11-10 19:35 | HP ---
CIWA Score Nausea/Vomitin-No Nausea/No Vomiting Muscle Tremors: 4-Moderate,w/Arms Extend Anxiety: 4-Mod. Anxious/Guarded Agitation: 4-Moderately Restless Paroxysmal Sweats: 4-Forehead w/Sweat Beads Orientation: 0-Oriented Tacttile Disturbances: 0-None Auditory Disturbances: 0-None Visual Disturbances: 2-Mild Sensitivity (to light) Headache: 3-Moderate (7/10) CIWA-Ar Total Score: 21 - Admission Criteria OASAS Guidelines: Admission for Medically Managed Detox: Requires at least one of the followin. CIWA greater than 12 2. Seizures within the past 24 hours 3. Delirium tremens within the past 24 hours 4. Hallucinations within the past 24 hours 5. Acute intervention needed for co occurring medical disorder 6. Acute intervention needed for co occurring psychiatric disorder 7. Severe withdrawal that cannot be handled at a lower level of care (continued vomiting, continued diarrhea, abnormal vital signs) requiring intravenous medication and/or fluids 8. Patient presents the following: CIWA greater than 12 (s/p er visit for c.p. cleared) Admission Criteria Met: Admission criteria met Admitting History and Physical - Past Surgical History Past Surgical History: Yes: Hernia Repair - Smoking History Smoking history: Current every day smoker Have you smoked in the past 12 months: Yes Aproximately how many cigarettes per day: 8 - Alcohol/Substance Use Hx Alcohol Use: Yes Number of Drinks Daily: 40 History of Substance Use: reports: Cocaine - Social History ADL: Independent History of Recent Travel: No Admission ROS [facility] [place] [facility] Chief Complaint: C/O WITHDRAWAL SX'S. SEEKING ALCOHOL DETOX Allergies/Adverse Reactions: Allergies Allergy/AdvReac Type Severity Reaction Status Date / Time No Known Allergies Allergy Verified 04/11/19 10:47 History of Present Illness: HERE FOR ALCOHOL DETOX/ CLEINT IS SELF REFERRED. KNOWN TO PROGRAM. LAST DC 04/15/19. PRESENTS TODAY WITH C/O WORSENING WITHDRAWAL SX'S. CLIENT STATES HE DRINKS DAILY. LAST DRINK LAST NIGHT. HE WAS SEEN AND CLEARED AT [facility] ER OVERNIGHT FOR C/O C.P. HE PRESENTLY DENIES ANY C.P, SOB. ELEVATED B/P 154/95 HR 69. CLIENT DENIES BEING ON ANTIHYPERTENSIVES. 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 "I DRINK ALL DAY". DENIES ANY SIGNIFICANT PERIOD OF CLEAN TIME IN THE PAST 1 YEAR. + BLACK OUTS, DENIES HX/ O SEIZURES. HE ALSO USES COCAINE.DENIES IV DRUG USE. LIVES WITH BROTHER, UNEMPLOYED, DENIES LEGALS. Exam Limitations: No Limitations - Ebola screening Have you traveled outside of the country in the last 21 days: No Have you had contact with anyone from an Ebola affected area: No Have you been sick,other than usual withdrawal symptoms: No Do you have a fever: No - Review of Systems Constitutional: Chills, Loss of Appetite, Night Sweats, Changes in sleep EENT: reports: Other (READING GLASSES) Respiratory: reports: No Symptoms reported Cardiac: reports: No Symptoms Reported GI: reports: Poor Appetite, Poor Fluid Intake : reports: No Symptoms Reported Musculoskeletal: reports: No Symptoms Reported Integumentary: reports: No Symptoms Reported Neuro: reports: Headache, Tremors Endocrine: reports: No Symptoms Reported Hematology: reports: No Symptoms Reported Psychiatric: reports: Orientated x3, Anxious, Depressed (DENIES SI/HI) Other Systems: Reviewed and Negative Patient History - Patient Medical History Hx Anemia: No Hx Asthma: No Hx Chronic Obstructive Pulmonary Disease (COPD): No Hx Cancer: No Hx Cardiac Disorders: No Hx Congestive Heart Failure: No Hx Hypertension: Yes (PRE HTN) Hx Hypercholesterolemia: Yes (LIPITOR) Hx Pacemaker: No HX Cerebrovascular Accident: No Hx Seizures: No Hx Diabetes: No Hx Gastrointestinal Disorders: No Hx Liver Disease: No Hx Genitourinary Disorders: No Hx Sexually Transmitted Disorders: No Hx Renal Disease (ESRD): No Hx Thyroid Disease: No Hx Human Immunodeficiency Virus (HIV): No (ON [employer] IS +) Hx Hepatitis C: No Hx Depression: Yes Hx Suicide Attempt: No Hx Bipolar Disorder: No Hx Schizophrenia: No Other Medical History: DENIES - Patient Surgical History Past Surgical History: Yes Hx Neurologic Surgery: No Hx Cataract Extraction: No Hx Cardiac Surgery: No Hx Lung Surgery: No Hx Breast Surgery: No Hx Breast Biopsy: No Hx Abdominal Surgery: No Hx Appendectomy: No Hx Cholecystectomy: No Hx Genitourinary Surgery: No Hx Section: No Hx Orthopedic Surgery: No Other Surgical History: left inguinal hernia repair at age 24 mos. Anesthesia Reaction: No - PPD History Previous Implant?: Yes Documented Results: Negative w/proof Implanted On Prior [facility] Admission?: Yes Date: 01/23/19 Results: 0 mm PPD to be Administered?: No - Smoking Cessation Smoking history: Current every day smoker Have you smoked in the past 12 months: Yes Aproximately how many cigarettes per day: 20 Cigars Per Day: 0 Hx Chewing Tobacco Use: No Initiated information on smoking cessation: Yes 'Breaking Loose' booklet given: 11/10/19 - Substance & Tx. History Hx Alcohol Use: Yes Hx Substance Use: Yes Substance Use Type: Alcohol, Cocaine Hx Substance Use Treatment: Yes ([facility]) - Substances abused Alcohol Other (specify): BEER/ VODKA Substance route: Oral Frequency: Daily Amount used: 12- 12OZCANS/ FIFTH Age of first use: 32 Date of last use: 11/09/19 Cocaine Substance route: Inhalation Frequency: 3-6 times per week (4X) Amount used: 1GM Age of first use: 24 Date of last use: 11/07/19 Admission Physical Exam [facility] - Physical General Appearance: Yes: Moderate Distress, Tremorous (FELT), Sweating, Anxious HEENTM: Yes: EOMI, Normocephalic, Normal Voice, NINOSKA, Pharynx Normal Respiratory: Yes: Chest Non-Tender, Lungs Clear, Normal Breath Sounds, No Respiratory Distress, No Accessory Muscle Use Neck: Yes: No masses,lesions,Nodules, Supple, Trachea in good position Breast: Yes: Breasts Symetrical Cardiology: Yes: Regular Rhythm, Regular Rate, S1, S2 Abdominal: Yes: Normal Bowel Sounds, Non Tender, Soft, Protuberent Genitourinary: Yes: Within Normal Limits Back: Yes: Normal Inspection Musculoskeletal: Yes: full range of Motion, Gait Steady Extremities: Yes: Normal Capillary Refill, Normal Range of Motion, Non-Tender, Tremors Neurological: Yes: Fully Oriented, Alert, Motor Strength 5/5, Depressed Affect Integumentary: Yes: Cold, Clammy Lymphatic: Yes: Within Normal Limits - Diagnostic (1) Hyperlipidemia Current Visit: Yes Status: Chronic Qualifiers: Hyperlipidemia type: unspecified Qualified Code(s): E78.5 - Hyperlipidemia, unspecified (2) Alcohol dependence with uncomplicated withdrawal Current Visit: Yes Status: Acute (3) Substance-induced sleep disorder Current Visit: Yes Status: Suspected (4) Cocaine dependence, uncomplicated Current Visit: Yes Status: Acute (5) HTN (hypertension) Current Visit: Yes Status: Chronic Qualifiers: Hypertension type: essential hypertension Qualified Code(s): I10 - Essential (primary) hypertension (6) Nicotine dependence Current Visit: Yes Status: Chronic Qualifiers: Nicotine product type: cigarettes Substance use status: uncomplicated Qualified Code(s): F17.210 - Nicotine dependence, cigarettes, uncomplicated (7) Substance induced mood disorder Current Visit: Yes Status: Suspected Cleared for Admission B[facility] - Detox or Rehab S Level of Care: Medically Managed Detox Regimen/Protocol: Librium Claeared for Rehab Admission: No Breathalyzer - Breathalyzer Breathalyzer: 0 Urine Drug Screen - Test Device Lot number: [id number] Expiration date: 06/26/21 - Control Is test valid?: Yes - Results Drug screen NEGATIVE: No Urine drug screen results: LILY-Cocaine Inpatient Rehab Admission - Rehab Decision to Admit Inpatient rehab admission?: No
[2019-11-10] MEDS ORDERED: hydrOXYzine PAMOATE 25 MG CAPSULE (FP) PO PRN (19:43)
[2019-11-10] MEDS ORDERED: METHOCARBAMOL 500 MG TABLET PO PRN (19:43)
[2019-11-10] MEDS ORDERED: MENTHOL/PHENOL 1 EACH UD MM PRN (19:43)
[2019-11-10] MEDS ORDERED: IBUPROFEN 400 MG TABLET (FP) PO PRN (19:43)
[2019-11-10] MEDS ORDERED: MAGNESIUM CITRATE 300 ML BOTTLE PO PRN (19:43)
[2019-11-10] MEDS ORDERED: chlordiazePOXIDE HCL 25 MG CAPSULE PO PRN (19:43)
[2019-11-10] MEDS ORDERED: DICYCLOMINE HCL 10 MG CAPSULE PO PRN (19:43)
[2019-11-10] MEDS ORDERED: P-EPHED 60MG/TRIPROLIDI 2.5MG TABLET PO PRN (19:43)
[2019-11-10] MEDS ORDERED: MAG HYDROX/AL HYDROX/SIMETH 30 ML UNIT-DOSE CUP PO PRN (19:43)
[2019-11-10] MEDS ORDERED: ONDANSETRON *ODT* 4 MG TABLET SL ONE (19:43)
[2019-11-10] MEDS ORDERED: guaiFENesin 200 MG/10 ML 10 ML UNIT-DOSE CUPS PO PRN (19:43)
[2019-11-10] MEDS ORDERED: MAGNESIUM HYDROX 2400MG/30ML ORAL SUSPENSION 30 ML CUP PO PRN (19:43)
[2019-11-10] MEDS ORDERED: BISMUTH SUBSALICYLATE 524 MG/30 ML UD PO PRN (19:43)
[2019-11-10] MEDS ORDERED: ACETAMINOPHEN 325 MG TABLET (FP) PO PRN ×2 (19:43)
[2019-11-10] MEDS ORDERED: NICOTINE POLACRILEX 2 MG GUM BUC PRN (19:43)
[2019-11-10 20:57] VITALS: BMI 30.4
[2019-11-10] MEDS ORDERED: MELATONIN 5 MG TABLETS PO SCH (22:00)
[2019-11-10] MEDS: THIAMINE HCL 100 MG TABLET (FP) PO SCH (23:13)
[2019-11-10] MEDS: chlordiazePOXIDE HCL 25 MG CAPSULE PO SCH (23:13)
[2019-11-11] MEDS: chlordiazePOXIDE HCL 25 MG CAPSULE PO SCH ×4 (05:32→22:18)
--- NOTE | 2019-11-11 09:23 | PN ---
S CIWA - CIWA Score Nausea/Vomitin-Mild Nausea/No Vomiting Muscle Tremors: 4-Moderate,w/Arms Extend Anxiety: 4-Mod. Anxious/Guarded Agitation: 3 Paroxysmal Sweats: 2 Orientation: 0-Oriented Tacttile Disturbances: 0-None Auditory Disturbances: 0-None Visual Disturbances: 1-Very Mild Sensitivity Headache: 1-Very Mild CIWA-Ar Total Score: 16 BHS Progress Note (SOAP) Subjective: 54 years old male was admitted on 11/10/19 for alcohol withdrawal sx management treating with librium detox regiment feeling tired resting in bed limited conversation with staff Objective: 11/11/19 09:38 Vital Signs - 24 hr 11/10/19 11/11/19 11/11/19 20:55 05:07 09:15 Temperature 97.2 F L 97.3 F L 96.4 F L Pulse Rate 69 67 55 L Respiratory 18 16 18 Rate Blood Pressure 154/95 100/60 106/62 O2 Sat by Pulse 96 Oximetry (%) 11/11/19 09:38 lab pending Assessment: 11/11/19 09:39 alcohol withdrawal Plan: librium regiment
[2019-11-11] MEDS: PRENATAL VITAMINS W/ FOLIC ACID TABLET (FP) PO SCH (10:57)
[2019-11-11] MEDS: NICOTINE 21 MG/24 HOURS TOPICAL PATCH TD SCH (10:58)
[2019-11-11 12:12] LABS: HEMATOCRIT 41.4 % (35.4-49); HEMOGLOBIN 13.7 GM/dL (11.7-16.9); MCH 29.9 pg (25.7-33.7); MCHC 33.1 g/dl (32.0-35.9); MEAN CELL VOLUME 90.1 fl (80-96); MEAN PLT VOLUME 10.1 fl (7.5-11.1); PLATELET COUNT 257 K/MM3 (134-434); RDW 14.7 % (11.9-15.9); WHITE BLOOD COUNT 6.6 K/mm3 (4.0-10.0)
[2019-11-11 12:29] LABS: ALBUMIN 3.1 g/dl (3.4-5.0); BILIRUBIN,TOTAL 0.3 mg/dL (0.2-1); BLOOD UREA NITROGEN 17.6 mg/dL (7-18); CALCIUM 8.6 mg/dL (8.5-10.1); CREATININE 1.2 mg/dL (0.55-1.3); POTASSIUM 3.9 mmol/L (3.5-5.1); TOT PROT 6.8 g/dl (6.4-8.2)
--- NOTE | 2019-11-11 13:46 | CONSULT ---
[facility] Psychiatric Consult - Data Date of interview: 11/11/19 Admission source: [facility] Identifying data: Mr Womack is a 54 years old single Black male, father of 2 children, unemployed with no source of income, living with his brother seeking detox treatment for alcohol and cocaine Substance Abuse History: Reports history of alcohol and cocaine use. Refer to addiction counselor's summary for further information Medical History: Significant for hypertension, dyslipidemia and left inguinal hernia repair at age 24. Smokes cigarettes 1 ppd Psychiatric History: Patient is known for multiple previous admissions to this faciltity. He reports that his first pchiatric contact occured in 2007 following the of his son while in assisted. He said that he was diagnosed with MDD and started on Remeron. Reports after his release from assisted in 2012, he saw a psychiatrist for a year at [facility] in 2013. Reports his most recent psychiatric treatment was while admitted to rehab at [facility]. He said that he was diagnosed with PTSD and Antisocial Personality Disorder and prescribed Remeron 15 mg/hs. Denies previous psychiatric hospitalization or suicidal attempt. At present, reports feeling depressed, anxious and sleeping poorly Physical/Sexual Abuse/Trauma History: Denies history of abuse as a child or DV relationship as an adult Mental Status Exam - Mental Status Exam Alert and Oriented to: Time, Place, Person Cognitive Function: Fair Patient Appearance: Well Groomed Mood: Depressed, Anxious Affect: Appropriate Patient Behavior: Cooperative Voice Loudness: Normal Thought Process: Intact, Goal Oriented Thought Disorder: Not Present Hallucinations: Denies Suicidal Ideation: Denies Homicidal Ideation: Denies Insight/Judgement: Poor Sleep: Poorly Appetite: Poor Muscle strength/Tone: Normal Gait/Station: Normal Psychiatric Findings - Problem List ([place] 1, 2,3) (1) PTSD (post-traumatic stress disorder) Current Visit: Yes Status: Chronic (2) Depressive disorder Current Visit: No Status: Chronic (3) MDD (major depressive disorder) Current Visit: Yes Status: Ruled-out (4) Substance induced mood disorder Current Visit: Yes Status: Acute (5) Substance-induced sleep disorder Current Visit: Yes Status: Acute (6) Alcohol dependence with uncomplicated withdrawal Current Visit: Yes Status: Acute (7) Cocaine dependence, uncomplicated Current Visit: Yes Status: Acute (8) Nicotine dependence Current Visit: Yes Status: Chronic Qualifiers: Nicotine product type: cigarettes Substance use status: uncomplicated Qualified Code(s): F17.210 - Nicotine dependence, cigarettes, uncomplicated (9) Hyperlipidemia Current Visit: Yes Status: Chronic Qualifiers: Hyperlipidemia type: unspecified Qualified Code(s): E78.5 - Hyperlipidemia, unspecified - Initial Treatment Plan Initial Treatment Plan: 1) Resume Remeron 15 mg po HS. 2) Start Vistaril 25 mg po Q 4hrs prn for anxiety and Melatonin 10 mg po HS prn for insomnia. 3) Continue inpatient detoxification
[2019-11-11] MEDS: MIRTAZAPINE 15 MG TABLET (FP) PO SCH (22:16)
[2019-11-11] MEDS: THIAMINE HCL 100 MG TABLET (FP) PO SCH (22:17)
[2019-11-11] MEDS: MELATONIN 5 MG TABLETS PO PRN (22:19)
[2019-11-12] MEDS: chlordiazePOXIDE HCL 25 MG CAPSULE PO SCH ×4 (07:08→22:28)
[2019-11-12] MEDS: PRENATAL VITAMINS W/ FOLIC ACID TABLET (FP) PO SCH (10:40)
[2019-11-12] MEDS: NICOTINE 21 MG/24 HOURS TOPICAL PATCH TD SCH (10:40)
--- NOTE | 2019-11-12 11:04 | PN ---
S CIWA - CIWA Score Nausea/Vomitin-Mild Nausea/No Vomiting Muscle Tremors: 2 Anxiety: 2 Agitation: 2 Paroxysmal Sweats: No Perspiration Orientation: 1-Uncertain about Date Tacttile Disturbances: 0-None Auditory Disturbances: 0-None Visual Disturbances: 0-None Headache: 1-Very Mild CIWA-Ar Total Score: 9 BHS Progress Note (SOAP) Subjective: alert,irritable,anxious,interrupted sleep,tremor,pain in the body and back Objective: 11/12/19 11:03 Vital Signs Temperature 96.8 F L 11/12/19 08:43 Pulse Rate 61 11/12/19 08:43 Respiratory Rate 18 11/12/19 08:43 Blood Pressure 143/94 11/12/19 08:43 O2 Sat by Pulse Oximetry (%) 96 11/12/19 05:13 11/12/19 11:03 Laboratory Last Values WBC 6.6 K/mm3 (4.0-10.0) 11/11/19 07:15 RBC 4.60 M/mm3 (4.00-5.60) 11/11/19 07:15 Hgb 13.7 GM/dL (11.7-16.9) 11/11/19 07:15 Hct 41.4 % (35.4-49) 11/11/19 07:15 MCV 90.1 fl (80-96) 11/11/19 07:15 MCH 29.9 pg (25.7-33.7) 11/11/19 07:15 MCHC 33.1 g/dl (32.0-35.9) 11/11/19 07:15 RDW 14.7 % (11.9-15.9) 11/11/19 07:15 Plt Count 257 K/MM3 (134-434) 11/11/19 07:15 MPV 10.1 fl (7.5-11.1) 11/11/19 07:15 Sodium 139 mmol/L (136-145) 11/11/19 07:15 Potassium 3.9 mmol/L (3.5-5.1) 11/11/19 07:15 Chloride 105 mmol/L (98-107) 11/11/19 07:15 Carbon Dioxide 29 mmol/L (21-32) 11/11/19 07:15 Anion Gap 5 MMOL/L (8-16) L 11/11/19 07:15 BUN 17.6 mg/dL (7-18) 11/11/19 07:15 Creatinine 1.2 mg/dL (0.55-1.3) 11/11/19 07:15 Est GFR (CKD-EPI)AfAm 80.10 11/11/19 07:15 Est GFR (CKD-EPI)NonAf 69.11 11/11/19 07:15 Random Glucose 108 mg/dL (74-106) H 11/11/19 07:15 Calcium 8.6 mg/dL (8.5-10.1) 11/11/19 07:15 Total Bilirubin 0.3 mg/dL (0.2-1) 11/11/19 07:15 AST 15 U/L (15-37) 11/11/19 07:15 ALT 22 U/L (13-61) 11/11/19 07:15 Alkaline Phosphatase 90 U/L (45-117) 11/11/19 07:15 Total Protein 6.8 g/dl (6.4-8.2) 11/11/19 07:15 Albumin 3.1 g/dl (3.4-5.0) L 11/11/19 07:15 Syphilis Serology Non-reactive (NONREACTIVE) 11/11/19 07:15 Assessment: 11/12/19 11:04 withdrawal symptom Plan: continue detox librium regimen
--- NOTE | 2019-11-12 18:28 | EKG ---
Test Reason : Blood Pressure : / mmHG Vent. Rate : 066 BPM Atrial Rate : 066 BPM P-R Int : 126 ms QRS Dur : 076 ms QT Int : 404 ms P-R-T Axes : 075 071 057 degrees QTc Int : 423 ms NORMAL SINUS RHYTHM POSSIBLE LEFT ATRIAL ENLARGEMENT BORDERLINE ECG WHEN COMPARED WITH ECG OF 21-JAN-2019 11:29, NO SIGNIFICANT CHANGE WAS FOUND Confirmed by ISAURO MANCINI MD ([id number]) on 11/12/2019 6:27:34 PM Referred By: Confirmed By:ISAURO MANCINI MD
[2019-11-12] MEDS: MIRTAZAPINE 15 MG TABLET (FP) PO SCH (22:28)
[2019-11-12] MEDS: THIAMINE HCL 100 MG TABLET (FP) PO SCH (22:28)
[2019-11-12] MEDS: MELATONIN 5 MG TABLETS PO PRN (22:29)
[2019-11-13] MEDS ORDERED: chlordiazePOXIDE HCL 10 MG CAPSULE PO PRN
[2019-11-13 02:54] LABS: EPI CELLS 1 /uL (0-25.1); HYALINE CASTS 0 /uL (0-3.1); URINE APPEARANCE CLEAR; URINE BACTERIA 4 /uL (0-1359); URINE BILIRUBIN NEGATIVE (NEGATIVE); URINE COLOR YELLOW; URINE GLUCOSE (UA) NEGATIVE (NEGATIVE); URINE KETONE NEGATIVE (NEGATIVE); URINE LEUK ESTERASE 1+ (NEGATIVE); URINE NITRITE NEGATIVE (NEGATIVE); URINE PROTEIN NEGATIVE (NEGATIVE); URINE RBC 4 /uL (0-23.9); URINE UROBILINOGEN 0.2 mg/dL (0.2-1.0); URINE WBC 1 /uL (0-25.8)
[2019-11-13] MEDS: chlordiazePOXIDE HCL 10 MG CAPSULE PO SCH ×4 (05:42→22:12)
[2019-11-13] MEDS: PRENATAL VITAMINS W/ FOLIC ACID TABLET (FP) PO SCH (10:18)
[2019-11-13] MEDS: NICOTINE 21 MG/24 HOURS TOPICAL PATCH TD SCH (10:18)
--- NOTE | 2019-11-13 14:12 | PN ---
S CIWA - CIWA Score Nausea/Vomitin Muscle Tremors: 2 Anxiety: 2 Agitation: 2 Paroxysmal Sweats: No Perspiration Orientation: 0-Oriented Tacttile Disturbances: 0-None Auditory Disturbances: 0-None Visual Disturbances: 0-None Headache: 1-Very Mild CIWA-Ar Total Score: 9 BHS Progress Note (SOAP) Subjective: alert,irritable,anxious,interrupted sleep,aching pain,non compliance with medications Objective: 11/13/19 14:09 Vital Signs Temperature 96.4 F L 11/13/19 12:35 Pulse Rate 65 11/13/19 12:35 Respiratory Rate 18 11/13/19 12:35 Blood Pressure 108/78 11/13/19 12:35 O2 Sat by Pulse Oximetry (%) 96 11/13/19 12:35 11/13/19 14:09 Laboratory Last Values WBC 6.6 K/mm3 (4.0-10.0) 11/11/19 07:15 RBC 4.60 M/mm3 (4.00-5.60) 11/11/19 07:15 Hgb 13.7 GM/dL (11.7-16.9) 11/11/19 07:15 Hct 41.4 % (35.4-49) 11/11/19 07:15 MCV 90.1 fl (80-96) 11/11/19 07:15 MCH 29.9 pg (25.7-33.7) 11/11/19 07:15 MCHC 33.1 g/dl (32.0-35.9) 11/11/19 07:15 RDW 14.7 % (11.9-15.9) 11/11/19 07:15 Plt Count 257 K/MM3 (134-434) 11/11/19 07:15 MPV 10.1 fl (7.5-11.1) 11/11/19 07:15 Sodium 139 mmol/L (136-145) 11/11/19 07:15 Potassium 3.9 mmol/L (3.5-5.1) 11/11/19 07:15 Chloride 105 mmol/L (98-107) 11/11/19 07:15 Carbon Dioxide 29 mmol/L (21-32) 11/11/19 07:15 Anion Gap 5 MMOL/L (8-16) L 11/11/19 07:15 BUN 17.6 mg/dL (7-18) 11/11/19 07:15 Creatinine 1.2 mg/dL (0.55-1.3) 11/11/19 07:15 Est GFR (CKD-EPI)AfAm 80.10 11/11/19 07:15 Est GFR (CKD-EPI)NonAf 69.11 11/11/19 07:15 Random Glucose 108 mg/dL (74-106) H 11/11/19 07:15 Calcium 8.6 mg/dL (8.5-10.1) 11/11/19 07:15 Total Bilirubin 0.3 mg/dL (0.2-1) 11/11/19 07:15 AST 15 U/L (15-37) 11/11/19 07:15 ALT 22 U/L (13-61) 11/11/19 07:15 Alkaline Phosphatase 90 U/L (45-117) 11/11/19 07:15 Total Protein 6.8 g/dl (6.4-8.2) 11/11/19 07:15 Albumin 3.1 g/dl (3.4-5.0) L 11/11/19 07:15 Urine Color Yellow 11/12/19 23:00 Urine Appearance Clear 11/12/19 23:00 Urine pH 6.0 (5.0-8.0) 11/12/19 23:00 Ur Specific [place] 1.012 (1.010-1.035) 11/12/19 23:00 Urine Protein Negative (NEGATIVE) 11/12/19 23:00 Urine Glucose (UA) Negative (NEGATIVE) 11/12/19 23:00 Urine Ketones Negative (NEGATIVE) 11/12/19 23:00 Urine Blood Negative (NEGATIVE) 11/12/19 23:00 Urine Nitrite Negative (NEGATIVE) 11/12/19 23:00 Urine Bilirubin Negative (NEGATIVE) 11/12/19 23:00 Urine Urobilinogen 0.2 mg/dL (0.2-1.0) 11/12/19 23:00 Ur Leukocyte Esterase 1+ (NEGATIVE) H 11/12/19 23:00 Urine WBC (Auto) 1 /uL (0-25.8) 11/12/19 23:00 Urine RBC (Auto) 4 /uL (0-23.9) 11/12/19 23:00 Urine Casts (Auto) 0 /uL (0-3.1) 11/12/19 23:00 U Epithel Cells (Auto) 1 /uL (0-25.1) 11/12/19 23:00 Urine Bacteria (Auto) 4 /uL (0-1359) 11/12/19 23:00 Syphilis Serology Non-reactive (NONREACTIVE) 11/11/19 07:15 COVID-19 (JUAN RAMON) Not detected (Not Detected) 11/10/19 08:47 Assessment: 11/13/19 14:10 withdrawal symptom Plan: continue detox librium regimen,unable to verify Descovy medication from pharmacy
[2019-11-13] MEDS: FLUTICASONE PROP 0.05% 16 GM NASAL SPRAY NS SCH (15:00)
[2019-11-13] MEDS: ASPIRIN 81 MG CHEWABLE TABLETS PO SCH (15:00)
[2019-11-13] MEDS: ATORVASTATIN CA 80 MG TABLET (FP) PO SCH (22:11)
[2019-11-13] MEDS: MIRTAZAPINE 15 MG TABLET (FP) PO SCH (22:11)
[2019-11-13] MEDS: THIAMINE HCL 100 MG TABLET (FP) PO SCH (22:11)
[2019-11-13] MEDS: MELATONIN 5 MG TABLETS PO PRN (22:12)
[2019-11-14] MEDS: chlordiazePOXIDE HCL 10 MG CAPSULE PO SCH ×2 (06:15→17:06)
[2019-11-14] MEDS: ASPIRIN 81 MG CHEWABLE TABLETS PO SCH (10:19)
[2019-11-14] MEDS: PRENATAL VITAMINS W/ FOLIC ACID TABLET (FP) PO SCH (10:19)
[2019-11-14] MEDS: NICOTINE 21 MG/24 HOURS TOPICAL PATCH TD SCH (10:20)
[2019-11-14] MEDS: FLUTICASONE PROP 0.05% 16 GM NASAL SPRAY NS SCH (10:20)
--- NOTE | 2019-11-14 12:43 | PN ---
S CIWA - CIWA Score Nausea/Vomitin-Mild Nausea/No Vomiting Muscle Tremors: 2 Anxiety: 2 Agitation: 1-Slight > Activity Paroxysmal Sweats: No Perspiration Orientation: 0-Oriented Tacttile Disturbances: 0-None Auditory Disturbances: 0-None Visual Disturbances: 0-None Headache: 1-Very Mild CIWA-Ar Total Score: 7 BHS Progress Note (SOAP) Subjective: alert,irritable,anxious,interrupted sleep, aching pain,patient is taking truvada for prep Objective: 11/14/19 12:42 Vital Signs Temperature 97.1 F L 11/14/19 08:40 Pulse Rate 61 11/14/19 08:40 Respiratory Rate 18 11/14/19 08:40 Blood Pressure 110/70 11/14/19 08:40 O2 Sat by Pulse Oximetry (%) 96 11/14/19 05:08 Assessment: 11/14/19 12:42 withdrawal symptom Plan: continue detox librium regimen,discharge in am
[2019-11-14] MEDS: ATORVASTATIN CA 80 MG TABLET (FP) PO SCH (21:30)
[2019-11-14] MEDS: MIRTAZAPINE 15 MG TABLET (FP) PO SCH (21:30)
[2019-11-14] MEDS: MELATONIN 5 MG TABLETS PO PRN (21:31)
[2019-11-14] MEDS: THIAMINE HCL 100 MG TABLET (FP) PO SCH (21:31)
[2019-11-15] MEDS ORDERED: chlordiazePOXIDE HCL 10 MG CAPSULE PO ONE (05:00)
[2019-11-15 09:06] VITALS: BP 141/102; PULSE 73; TEMP 96.8
--- NOTE | 2019-11-15 09:15 | DS ---
[facility] Detox Discharge Summary Admission Date: 11/10/19 Discharge Date: 11/15/19 - History Present History: Alcohol Dependence Additional Comments: 54 years old male was admitted on 11/10/19 for alcohol withdrawal sx management treated with librium regiment seen by psychiatrist rodolfo remeron melatonin and vistaril mr duncan has completed the librium detox regimen and is tolerated well General Appearance: Yes: no Distress, less Tremorous (FELT), no Sweating, mild Anxious HEENTM: Yes: EOMI, Normocephalic, Normal Voice, NINOSKA, Pharynx Normal Respiratory: Yes: Chest Non-Tender, Lungs Clear, Normal Breath Sounds, No Respiratory Distress, No Accessory Muscle Use Neck: Yes: No masses,lesions,Nodules, Supple, Trachea in good position Breast: Yes: Breasts Symetrical Cardiology: Yes: Regular Rhythm, Regular Rate, S1, S2 Abdominal: Yes: Normal Bowel Sounds, Non Tender, Soft, Protuberent Genitourinary: Yes: Within Normal Limits Back: Yes: Normal Inspection Musculoskeletal: Yes: full range of Motion, Gait Steady Extremities: Yes: Normal Capillary Refill, Normal Range of Motion, Non-Tender, Tremors Neurological: Yes: Fully Oriented, Alert, Motor Strength 5/5, Depressed Affect Integumentary: Yes: Cold, Clammy Lymphatic: Yes: Within Normal Limits Pertinent Past History: time for discharge 35 minutes - Physical Exam Results Vital Signs: Vital Signs Temperature 96.8 F L 11/15/19 08:30 Pulse Rate 73 11/15/19 08:30 Respiratory Rate 18 11/15/19 08:30 Blood Pressure 141/102 H 11/15/19 08:30 O2 Sat by Pulse Oximetry (%) 98 11/15/19 06:32 Pertinent Admission Physical Exam Findings: alcohol withdrawal Vital Signs - 24 hr 11/14/19 11/14/19 11/15/19 16:20 20:29 06:32 Temperature 96.9 F L 96.9 F L 98.4 F Pulse Rate 74 90 90 Respiratory 18 18 18 Rate Blood Pressure 144/86 144/92 120/76 O2 Sat by Pulse 100 98 Oximetry (%) 11/15/19 08:30 Temperature 96.8 F L Pulse Rate 73 Respiratory 18 Rate Blood Pressure 141/102 H O2 Sat by Pulse Oximetry (%) Laboratory Tests 08/11/11/19 11/11/19 08:47 07:15 07:15 WBC 6.6 RBC 4.60 Hgb 13.7 Hct 41.4 MCV 90.1 MCH 29.9 MCHC 33.1 RDW 14.7 Plt Count 257 MPV 10.1 Sodium Potassium Chloride Carbon Dioxide Anion Gap BUN Creatinine Est GFR (CKD-EPI)AfAm Est GFR (CKD-EPI)NonAf Random Glucose Calcium Total Bilirubin AST ALT Alkaline Phosphatase Total Protein Albumin Urine Color Urine Appearance Urine pH Ur Specific [place] Urine Protein Urine Glucose (UA) Urine Ketones Urine Blood Urine Nitrite Urine Bilirubin Urine Urobilinogen Ur Leukocyte Esterase Urine WBC (Auto) Urine RBC (Auto) Urine Casts (Auto) U Epithel Cells (Auto) Urine Bacteria (Auto) Syphilis Serology Non-reactive COVID-19 (JUAN RAMON) Not detected 11/11/19 11/12/19 07:15 23:00 WBC RBC Hgb Hct MCV MCH MCHC RDW Plt Count MPV Sodium 139 Potassium 3.9 Chloride 105 Carbon Dioxide 29 Anion Gap 5 L BUN 17.6 Creatinine 1.2 Est GFR (CKD-EPI)AfAm 80.10 Est GFR (CKD-EPI)NonAf 69.11 Random Glucose 108 H Calcium 8.6 Total Bilirubin 0.3 AST 15 ALT 22 Alkaline Phosphatase 90 Total Protein 6.8 Albumin 3.1 L Urine Color Yellow Urine Appearance Clear Urine pH 6.0 Ur Specific [place] 1.012 Urine Protein Negative Urine Glucose (UA) Negative Urine Ketones Negative Urine Blood Negative Urine Nitrite Negative Urine Bilirubin Negative Urine Urobilinogen 0.2 Ur Leukocyte Esterase 1+ H Urine WBC (Auto) 1 Urine RBC (Auto) 4 Urine Casts (Auto) 0 U Epithel Cells (Auto) 1 Urine Bacteria (Auto) 4 Syphilis Serology COVID-19 (JUAN RAMON) mr duncan will continue medical treatment at the [address] Hospital Course: Detox Protocol Followed, Detoxed Safely, Responded well, Discharged Condition Good, Rehab Referral Accepted Patient has Accepted a Rehab Referral to: [facility] - Medication Discharge Medications: Ambulatory Orders Multivitamins [Multivit ([facility] Formulary)] 1 tab PO DAILY 12/15/18 Mirtazapine [Remeron -] 15 mg PO HS 11/14/19 - AMA Did Patient Leave Against Medical Advice: No CIWA Score - CIWA Score Nausea/Vomitin-No Nausea/No Vomiting Muscle Tremors: 2 Anxiety: 1-Mildly Anxious Agitation: 0-Normal Activity Paroxysmal Sweats: No Perspiration Orientation: 0-Oriented Tacttile Disturbances: 0-None Auditory Disturbances: 0-None Visual Disturbances: 0-None Headache: 0-None Present CIWA-Ar Total Score: 3
== END 2019-11-15 09:22 | disposition home or self-care (01) | DRG 774 ==
LOC: YASAS 16:20 → Y3N 20:17
PROVIDERS: ADMIT Allergy & Immunology; ATTEND Allergy & Immunology
PROC: HZ2ZZZZ Detoxification Services for Substance Abuse Treatment (ICD-10-PCS; principal; 2019-11-10)
DX: F10.230 Alcohol dependence with withdrawal, uncomplicated (principal); F14.20 Cocaine dependence, uncomplicated; F17.210 Nicotine dependence, cigarettes, uncomplicated; F19.24 Other psychoactive substance dependence with psychoactive substance-induced mood disorder; F19.282 Other psychoactive substance dependence with psychoactive substance-induced sleep disorder; F43.10 Post-traumatic stress disorder, unspecified; F32.9 Major depressive disorder, single episode, unspecified; I10 Essential (primary) hypertension; E78.5 Hyperlipidemia, unspecified; Z98.890 Other specified postprocedural states; Z56.0 Unemployment, unspecified
CPT/HCPCS: 36415; 80053; 81003; 85027; 86780; 93005; 93010; U0003

== ENCOUNTER 2020-02-15 08:42 | Inpatient (IN) | payer OTHER ==
[2020-02-15 09:09] VITALS: BMI 31.3
[2020-02-15] MEDS ORDERED: NICOTINE POLACRILEX 2 MG GUM BUC PRN (09:14)
[2020-02-15] MEDS ORDERED: ONDANSETRON *ODT* 4 MG TABLET SL PRN (09:14)
[2020-02-15] MEDS ORDERED: MENTHOL/PHENOL 1 EACH UD MM PRN (09:14)
[2020-02-15] MEDS ORDERED: MAG HYDROX/AL HYDROX/SIMETH 30 ML UNIT-DOSE CUP PO PRN (09:14)
[2020-02-15] MEDS ORDERED: MAGNESIUM CITRATE 300 ML BOTTLE PO PRN (09:14)
[2020-02-15] MEDS ORDERED: ACETAMINOPHEN 325 MG TABLET (FP) PO PRN ×2 (09:14)
[2020-02-15] MEDS ORDERED: METHOCARBAMOL 500 MG TABLET PO PRN (09:14)
[2020-02-15] MEDS ORDERED: BISMUTH SUBSALICYLATE 524 MG/30 ML UD PO PRN (09:14)
[2020-02-15] MEDS ORDERED: chlordiazePOXIDE HCL 25 MG CAPSULE PO PRN (09:14)
[2020-02-15] MEDS ORDERED: MAGNESIUM HYDROX 2400MG/30ML ORAL SUSPENSION 30 ML CUP PO PRN (09:14)
[2020-02-15] MEDS ORDERED: IBUPROFEN 400 MG TABLET (FP) PO PRN (09:14)
[2020-02-15] MEDS ORDERED: hydrOXYzine PAMOATE 25 MG CAPSULE (FP) PO SCH (10:00)
[2020-02-15] MEDS ORDERED: hydrOXYzine PAMOATE 25 MG CAPSULE (FP) PO PRN (10:07)
[2020-02-15] MEDS: chlordiazePOXIDE HCL 25 MG CAPSULE PO SCH ×3 (11:16→22:03)
[2020-02-15] MEDS: PRENATAL VITAMINS W/ FOLIC ACID TABLET (FP) PO SCH (11:33)
[2020-02-15] MEDS: NICOTINE 7 MG/24 HOURS TOPICAL PATCH TD SCH (11:34)
[2020-02-15 16:07] LABS: HEMOGLOBIN 14.8 GM/dL (11.7-16.9); MCH 29.2 pg (25.7-33.7); MCHC 32.8 g/dl (32.0-35.9); MEAN CELL VOLUME 89.1 fl (80-96); MEAN PLT VOLUME 10.1 fl (7.5-11.1); PLATELET COUNT 251 K/MM3 (134-434); POTASSIUM 4.2 mmol/L (3.5-5.1); RBC 5.05 M/mm3 (4.00-5.60); RDW 15.7 % (11.9-15.9)
[2020-02-15 16:09] LABS: BLOOD UREA NITROGEN 15.4 mg/dL (7-18); CALCIUM 9.4 mg/dL (8.5-10.1)
[2020-02-15 16:12] LABS: CREATININE 1.1 mg/dL (0.55-1.3)
[2020-02-15 16:14] LABS: BILIRUBIN,TOTAL 0.4 mg/dL (0.2-1)
[2020-02-15] MEDS: MIRTAZAPINE 15 MG TABLET (FP) PO SCH (22:04)
[2020-02-15] MEDS: THIAMINE HCL 100 MG TABLET (FP) PO SCH (22:04)
[2020-02-15] MEDS: MELATONIN 5 MG TABLETS PO SCH (22:04)
[2020-02-16] MEDS: chlordiazePOXIDE HCL 25 MG CAPSULE PO SCH ×4 (07:18→22:45)
[2020-02-16] MEDS: PRENATAL VITAMINS W/ FOLIC ACID TABLET (FP) PO SCH (10:39)
[2020-02-16] MEDS: NICOTINE 7 MG/24 HOURS TOPICAL PATCH TD SCH (10:39)
[2020-02-16] MEDS: THIAMINE HCL 100 MG TABLET (FP) PO SCH (22:45)
[2020-02-16] MEDS: MIRTAZAPINE 15 MG TABLET (FP) PO SCH (22:45)
[2020-02-17] MEDS: MELATONIN 5 MG TABLETS PO SCH ×2 (00:11→22:18)
[2020-02-17] MEDS: chlordiazePOXIDE HCL 25 MG CAPSULE PO SCH ×4 (07:04→22:18)
[2020-02-17] MEDS: NICOTINE 7 MG/24 HOURS TOPICAL PATCH TD SCH (10:25)
[2020-02-17] MEDS: PRENATAL VITAMINS W/ FOLIC ACID TABLET (FP) PO SCH (10:25)
[2020-02-17] MEDS: MIRTAZAPINE 15 MG TABLET (FP) PO SCH (22:18)
[2020-02-17] MEDS: THIAMINE HCL 100 MG TABLET (FP) PO SCH (22:18)
[2020-02-18] MEDS ORDERED: chlordiazePOXIDE HCL 10 MG CAPSULE PO PRN
[2020-02-18] MEDS: chlordiazePOXIDE HCL 10 MG CAPSULE PO SCH ×3 (05:43→17:31)
[2020-02-18] MEDS: NICOTINE 7 MG/24 HOURS TOPICAL PATCH TD SCH (10:55)
[2020-02-18] MEDS: PRENATAL VITAMINS W/ FOLIC ACID TABLET (FP) PO SCH (10:55)
[2020-02-18] MEDS: THIAMINE HCL 100 MG TABLET (FP) PO SCH (22:35)
[2020-02-18] MEDS: MIRTAZAPINE 15 MG TABLET (FP) PO SCH (22:35)
[2020-02-18] MEDS: MELATONIN 5 MG TABLETS PO SCH (22:36)
[2020-02-19] MEDS ORDERED: chlordiazePOXIDE HCL 10 MG CAPSULE PO SCH (05:00)
[2020-02-19 06:46] VITALS: TEMP 97.3
[2020-02-19 11:17] VITALS: BP 142/89; PULSE 102
[2020-02-20] MEDS ORDERED: chlordiazePOXIDE HCL 10 MG CAPSULE PO ONE (05:00)
== END 2020-02-19 09:54 | disposition home or self-care (01) | DRG 774 ==
LOC: YASAS 08:42 → Y6N 09:10
PROVIDERS: ADMIT Allergy & Immunology; ATTEND Allergy & Immunology
PROC: HZ2ZZZZ Detoxification Services for Substance Abuse Treatment (ICD-10-PCS; principal; 2020-02-15)
DX: F10.230 Alcohol dependence with withdrawal, uncomplicated (principal); F14.20 Cocaine dependence, uncomplicated; F17.210 Nicotine dependence, cigarettes, uncomplicated; F19.282 Other psychoactive substance dependence with psychoactive substance-induced sleep disorder; F19.24 Other psychoactive substance dependence with psychoactive substance-induced mood disorder; F32.9 Major depressive disorder, single episode, unspecified; F43.10 Post-traumatic stress disorder, unspecified; E78.5 Hyperlipidemia, unspecified; I10 Essential (primary) hypertension; Z98.890 Other specified postprocedural states
CPT/HCPCS: 36415; 80053; 85027; 86780; C9803; U0003

== ENCOUNTER 2020-04-06 08:32 | Inpatient (IN) | payer OTHER ==
[2020-04-06 09:35] VITALS: BMI 23.0
[2020-04-06] MEDS ORDERED: BISMUTH SUBSALICYLATE 524 MG/30 ML UD PO PRN (12:24)
[2020-04-06] MEDS ORDERED: chlordiazePOXIDE HCL 25 MG CAPSULE PO PRN (12:24)
[2020-04-06] MEDS ORDERED: MAGNESIUM HYDROX 2400MG/30ML ORAL SUSPENSION 30 ML CUP PO PRN (12:24)
[2020-04-06] MEDS ORDERED: MAGNESIUM CITRATE 300 ML BOTTLE PO PRN (12:24)
[2020-04-06] MEDS ORDERED: IBUPROFEN 400 MG TABLET (FP) PO PRN (12:24)
[2020-04-06] MEDS ORDERED: ONDANSETRON *ODT* 4 MG TABLET SL PRN (12:24)
[2020-04-06] MEDS ORDERED: NICOTINE POLACRILEX 2 MG GUM BUC PRN (12:24)
[2020-04-06] MEDS ORDERED: ACETAMINOPHEN 325 MG TABLET (FP) PO PRN ×2 (12:24)
[2020-04-06] MEDS ORDERED: MAG HYDROX/AL HYDROX/SIMETH 30 ML UNIT-DOSE CUP PO PRN (12:24)
[2020-04-06] MEDS ORDERED: METHOCARBAMOL 500 MG TABLET PO PRN (12:24)
[2020-04-06] MEDS ORDERED: MENTHOL/PHENOL 1 EACH UD MM PRN (12:24)
[2020-04-06] MEDS: hydrOXYzine PAMOATE 25 MG CAPSULE (FP) PO SCH ×3 (14:07→22:09)
[2020-04-06] MEDS: chlordiazePOXIDE HCL 25 MG CAPSULE PO SCH ×2 (18:38→22:08)
[2020-04-06] MEDS: MELATONIN 5 MG TABLETS PO SCH (22:09)
[2020-04-06] MEDS: THIAMINE HCL 100 MG TABLET (FP) PO SCH (22:09)
[2020-04-07] MEDS: chlordiazePOXIDE HCL 25 MG CAPSULE PO SCH ×4 (08:17→22:16)
[2020-04-07] MEDS: hydrOXYzine PAMOATE 25 MG CAPSULE (FP) PO SCH ×3 (08:17→13:38)
[2020-04-07] MEDS: PRENATAL VITAMINS W/ FOLIC ACID TABLET (FP) PO SCH (10:51)
[2020-04-07] MEDS: NICOTINE 14 MG/24 HOURS TOPICAL PATCH TD SCH (10:51)
[2020-04-07 12:05] LABS: POTASSIUM 3.9 mmol/L (3.5-5.1)
[2020-04-07 12:12] LABS: CALCIUM 9.1 mg/dL (8.5-10.1)
[2020-04-07 12:13] LABS: ALBUMIN 3.5 g/dl (3.4-5.0)
[2020-04-07 12:14] LABS: BLOOD UREA NITROGEN 21.2 mg/dL (7-18)
[2020-04-07 12:18] LABS: BILIRUBIN,TOTAL 0.4 mg/dL (0.2-1); CREATININE 1.1 mg/dL (0.55-1.3); HEMATOCRIT 43.9 % (35.4-49); HEMOGLOBIN 14.6 GM/dL (11.7-16.9); MCH 29.5 pg (25.7-33.7); MCHC 33.3 g/dl (32.0-35.9); MEAN CELL VOLUME 88.5 fl (80-96); MEAN PLT VOLUME 9.7 fl (7.5-11.1); PLATELET COUNT 271 K/MM3 (134-434); RBC 4.96 M/mm3 (4.00-5.60); RDW 15.3 % (11.9-15.9); TOT PROT 7.1 g/dl (6.4-8.2); WHITE BLOOD COUNT 5.7 K/mm3 (4.0-10.0)
[2020-04-07] MEDS: MIRTAZAPINE 15 MG TABLET (FP) PO SCH (22:14)
[2020-04-07] MEDS: THIAMINE HCL 100 MG TABLET (FP) PO SCH (22:14)
[2020-04-07] MEDS: MELATONIN 5 MG TABLETS PO SCH (22:18)
[2020-04-08] MEDS ORDERED: chlordiazePOXIDE HCL 25 MG CAPSULE PO SCH (05:00)
[2020-04-08] MEDS: chlordiazePOXIDE HCL 10 MG CAPSULE PO SCH ×4 (06:45→22:30)
[2020-04-08] MEDS: PRENATAL VITAMINS W/ FOLIC ACID TABLET (FP) PO SCH (10:25)
[2020-04-08] MEDS: NICOTINE 14 MG/24 HOURS TOPICAL PATCH TD SCH (10:27)
[2020-04-08] MEDS: HYDROCHLOROTHIAZIDE 12.5 MG CAPSULE (FP) PO SCH (12:11)
[2020-04-08] MEDS: HYDROCORTISONE 1% TOPICAL CREAM 30 GM TUBE TP SCH ×2 (13:33→22:30)
[2020-04-08] MEDS: MIRTAZAPINE 15 MG TABLET (FP) PO SCH (22:29)
[2020-04-08] MEDS: THIAMINE HCL 100 MG TABLET (FP) PO SCH (22:29)
[2020-04-08] MEDS: ATORVASTATIN CA 20 MG TABLET (FP) PO SCH (22:30)
[2020-04-08] MEDS: MELATONIN 5 MG TABLETS PO SCH (22:31)
[2020-04-09] MEDS ORDERED: chlordiazePOXIDE HCL 10 MG CAPSULE PO PRN
[2020-04-09] MEDS: HYDROCORTISONE 1% TOPICAL CREAM 30 GM TUBE TP SCH ×3 (06:23→22:39)
[2020-04-09] MEDS: chlordiazePOXIDE HCL 10 MG CAPSULE PO SCH ×4 (06:23→23:40)
[2020-04-09] MEDS: PRENATAL VITAMINS W/ FOLIC ACID TABLET (FP) PO SCH (10:37)
[2020-04-09] MEDS: NICOTINE 14 MG/24 HOURS TOPICAL PATCH TD SCH (10:37)
[2020-04-09] MEDS: HYDROCHLOROTHIAZIDE 12.5 MG CAPSULE (FP) PO SCH (10:37)
[2020-04-09] MEDS: MELATONIN 5 MG TABLETS PO SCH (22:38)
[2020-04-09] MEDS: MIRTAZAPINE 15 MG TABLET (FP) PO SCH (22:38)
[2020-04-09] MEDS: ATORVASTATIN CA 20 MG TABLET (FP) PO SCH (22:38)
[2020-04-09] MEDS: THIAMINE HCL 100 MG TABLET (FP) PO SCH (22:38)
[2020-04-10] MEDS ORDERED: chlordiazePOXIDE HCL 10 MG CAPSULE PO SCH (05:00)
[2020-04-10] MEDS: HYDROCORTISONE 1% TOPICAL CREAM 30 GM TUBE TP SCH (06:20)
[2020-04-10 09:25] VITALS: BP 134/73; PULSE 69; TEMP 97.3
[2020-04-11] MEDS ORDERED: chlordiazePOXIDE HCL 10 MG CAPSULE PO ONE (05:00)
== END 2020-04-10 09:01 | disposition home or self-care (01) | DRG 774 ==
LOC: YASAS 08:32 → Y6N 13:19
PROVIDERS: ADMIT Allergy & Immunology; ATTEND Allergy & Immunology
PROC: HZ2ZZZZ Detoxification Services for Substance Abuse Treatment (ICD-10-PCS; principal; 2020-04-06)
DX: F10.230 Alcohol dependence with withdrawal, uncomplicated (principal); F14.20 Cocaine dependence, uncomplicated; F17.210 Nicotine dependence, cigarettes, uncomplicated; F32.9 Major depressive disorder, single episode, unspecified; F43.10 Post-traumatic stress disorder, unspecified; F19.282 Other psychoactive substance dependence with psychoactive substance-induced sleep disorder; I10 Essential (primary) hypertension; E78.5 Hyperlipidemia, unspecified; L73.1 Pseudofolliculitis barbae; R63.4 Abnormal weight loss; Z68.23 Body mass index [BMI] 23.0-23.9, adult; Z56.0 Unemployment, unspecified
CPT/HCPCS: 36415; 80053; 85027; 86780; C9803; U0003

== ENCOUNTER 2020-09-10 17:38 | Inpatient (IN) | payer OTHER ==
[2020-09-10] MEDS ORDERED: MAGNESIUM HYDROX 2400MG/30ML ORAL SUSPENSION 30 ML CUP PO PRN (20:15)
[2020-09-10] MEDS ORDERED: MAG HYDROX/AL HYDROX/SIMETH 30 ML UNIT-DOSE CUP PO PRN (20:15)
[2020-09-10] MEDS ORDERED: METHOCARBAMOL 500 MG TABLET PO PRN (20:15)
[2020-09-10] MEDS ORDERED: IBUPROFEN 400 MG TABLET (FP) PO PRN (20:15)
[2020-09-10] MEDS ORDERED: MAGNESIUM CITRATE 300 ML BOTTLE PO PRN (20:15)
[2020-09-10] MEDS ORDERED: ONDANSETRON *ODT* 4 MG TABLET SL PRN (20:15)
[2020-09-10] MEDS ORDERED: MENTHOL/PHENOL 1 EACH UD MM PRN (20:15)
[2020-09-10] MEDS ORDERED: ACETAMINOPHEN 325 MG TABLET (FP) PO PRN ×2 (20:15)
[2020-09-10] MEDS ORDERED: BISMUTH SUBSALICYLATE 524 MG/30 ML PO PRN (20:15)
[2020-09-10] MEDS ORDERED: diazePAM 5 MG TABLET PO PRN (20:15)
[2020-09-10] MEDS ORDERED: NICOTINE POLACRILEX 2 MG GUM BUC PRN (20:15)
[2020-09-10 20:36] VITALS: BMI 29.4
[2020-09-10] MEDS ORDERED: MELATONIN 5 MG TABLETS PO SCH (22:00)
[2020-09-10] MEDS: diazePAM 5 MG TABLET PO SCH (23:01)
[2020-09-10] MEDS: THIAMINE HCL 100 MG TABLET (FP) PO SCH (23:03)
[2020-09-11] MEDS: diazePAM 5 MG TABLET PO SCH ×4 (07:17→22:28)
[2020-09-11] MEDS: NICOTINE 14 MG/24 HOURS TOPICAL PATCH TD SCH (10:29)
[2020-09-11] MEDS: PRENATAL VITAMINS W/ FOLIC ACID TABLET (FP) PO SCH (10:29)
[2020-09-11 11:15] LABS: ALBUMIN 3.4 g/dl (3.4-5.0); BLOOD UREA NITROGEN 19.7 mg/dL (7-18); CALCIUM 8.8 mg/dL (8.5-10.1)
[2020-09-11 11:16] LABS: HEMATOCRIT 46.2 % (35.4-49); HEMOGLOBIN 15.2 GM/dL (11.7-16.9); MCH 29.2 pg (25.7-33.7); MCHC 32.9 g/dl (32.0-35.9); MEAN CELL VOLUME 88.8 fl (80-96); MEAN PLT VOLUME 9.5 fl (7.5-11.1); PLATELET COUNT 297 10^3/uL (134-434); RBC 5.21 M/mm3 (4.00-5.60); RDW 14.1 % (11.9-15.9); WHITE BLOOD COUNT 6.2 K/mm3 (4.0-10.0)
[2020-09-11 11:20] LABS: BILIRUBIN,TOTAL 0.4 mg/dL (0.2-1)
[2020-09-11] MEDS: ATORVASTATIN CA 20 MG TABLET (FP) PO SCH (22:28)
[2020-09-11] MEDS: MIRTAZAPINE 15 MG TABLET (FP) PO SCH (22:28)
[2020-09-11] MEDS: THIAMINE HCL 100 MG TABLET (FP) PO SCH (22:28)
[2020-09-12] MEDS: diazePAM 5 MG TABLET PO SCH ×3 (07:23→22:39)
[2020-09-12] MEDS: PRENATAL VITAMINS W/ FOLIC ACID TABLET (FP) PO SCH (11:29)
[2020-09-12] MEDS: NICOTINE 14 MG/24 HOURS TOPICAL PATCH TD SCH (11:29)
[2020-09-12] MEDS: HYDROCHLOROTHIAZIDE 12.5 MG CAPSULE (FP) PO SCH (11:29)
[2020-09-12] MEDS: THIAMINE HCL 100 MG TABLET (FP) PO SCH (22:38)
[2020-09-12] MEDS: MIRTAZAPINE 15 MG TABLET (FP) PO SCH (22:38)
[2020-09-12] MEDS: ATORVASTATIN CA 20 MG TABLET (FP) PO SCH (22:38)
[2020-09-13] MEDS: diazePAM 5 MG TABLET PO SCH ×2 (07:17→17:13)
[2020-09-13] MEDS: HYDROCHLOROTHIAZIDE 12.5 MG CAPSULE (FP) PO SCH (11:03)
[2020-09-13] MEDS: PRENATAL VITAMINS W/ FOLIC ACID TABLET (FP) PO SCH (11:03)
[2020-09-13] MEDS: NICOTINE 14 MG/24 HOURS TOPICAL PATCH TD SCH (11:04)
[2020-09-13] MEDS: ATORVASTATIN CA 20 MG TABLET (FP) PO SCH (22:20)
[2020-09-13] MEDS: MIRTAZAPINE 15 MG TABLET (FP) PO SCH (22:20)
[2020-09-13] MEDS: THIAMINE HCL 100 MG TABLET (FP) PO SCH (22:20)
[2020-09-14] MEDS ORDERED: diazePAM 5 MG TABLET PO ONE (06:00)
[2020-09-14 09:31] VITALS: BP 140/85; PULSE 64; TEMP 98.1
== END 2020-09-14 09:33 | disposition home or self-care (01) | DRG 774 ==
LOC: YASAS 17:38 → Y3N 20:49
PROVIDERS: ADMIT Allergy & Immunology; ATTEND Allergy & Immunology
PROC: HZ2ZZZZ Detoxification Services for Substance Abuse Treatment (ICD-10-PCS; principal; 2020-09-10)
DX: F10.230 Alcohol dependence with withdrawal, uncomplicated (principal); F14.20 Cocaine dependence, uncomplicated; F17.210 Nicotine dependence, cigarettes, uncomplicated; F19.282 Other psychoactive substance dependence with psychoactive substance-induced sleep disorder; F19.24 Other psychoactive substance dependence with psychoactive substance-induced mood disorder; F32.9 Major depressive disorder, single episode, unspecified; F43.10 Post-traumatic stress disorder, unspecified; I10 Essential (primary) hypertension; E78.5 Hyperlipidemia, unspecified; Z98.890 Other specified postprocedural states
CPT/HCPCS: 36415; 80053; 85027; 86780; 93005; 93010; C9803; U0003; U0005

== ENCOUNTER 2021-10-25 10:08 | Inpatient (IN) | payer OTHER ==
[2021-10-25 10:38] VITALS: BMI 28.1
[2021-10-25] MEDS ORDERED: MAGNESIUM HYDROX 2400MG/30ML ORAL SUSPENSION 30 ML CUP PO PRN (13:15)
[2021-10-25] MEDS ORDERED: chlordiazePOXIDE HCL 25 MG CAPSULE PO PRN (13:15)
[2021-10-25] MEDS ORDERED: LOPERAMIDE HCL 2 MG CAPSULE PO PRN (13:15)
[2021-10-25] MEDS ORDERED: BENZOCAINE/MENTHOL (CHLORASEPTIC ) LOZENGE MM PRN (13:15)
[2021-10-25] MEDS ORDERED: IBUPROFEN 400 MG TABLET (FP) PO PRN (13:15)
[2021-10-25] MEDS ORDERED: DICYCLOMINE HCL 10 MG CAPSULE PO PRN (13:15)
[2021-10-25] MEDS ORDERED: MAGNESIUM CITRATE 300 ML BOTTLE PO PRN (13:15)
[2021-10-25] MEDS ORDERED: ONDANSETRON *ODT* 4 MG TABLET SL PRN (13:15)
[2021-10-25] MEDS ORDERED: IBUPROFEN 600 MG TABLET (FP) PO PRN (13:15)
[2021-10-25] MEDS ORDERED: ACETAMINOPHEN 325 MG TABLET (FP) PO PRN ×2 (13:15)
[2021-10-25] MEDS ORDERED: NICOTINE POLACRILEX 2 MG GUM BUC PRN (13:15)
[2021-10-25] MEDS ORDERED: MAG HYDROX/AL HYDROX/SIMETH 30 ML UNIT-DOSE CUP PO PRN (13:15)
[2021-10-25] MEDS ORDERED: BISMUTH SUBSALICYLATE 524 MG/30 ML PO PRN (13:15)
[2021-10-25] MEDS: chlordiazePOXIDE HCL 25 MG CAPSULE PO SCH ×2 (18:03→22:22)
[2021-10-25] MEDS: MIRTAZAPINE 15 MG TABLET (FP) PO SCH (22:22)
[2021-10-25] MEDS: THIAMINE HCL 100 MG TABLET (FP) PO SCH (22:22)
[2021-10-25] MEDS: ATORVASTATIN CA 20 MG TABLET (FP) PO SCH (22:22)
[2021-10-25] MEDS: MELATONIN 5 MG TABLETS PO SCH (22:22)
[2021-10-26] MEDS: chlordiazePOXIDE HCL 25 MG CAPSULE PO SCH ×4 (05:58→23:00)
[2021-10-26 10:24] LABS: HEMATOCRIT 45.4 % (35.4-49); HEMOGLOBIN 14.8 GM/dL (11.7-16.9); MCHC 32.6 g/dl (32.0-35.9); MEAN PLT VOLUME 9.9 fl (7.5-11.1); PLATELET COUNT 255 10^3/uL (134-434); RDW 14.1 % (11.9-15.9); WHITE BLOOD COUNT 5.5 K/mm3 (4.0-10.0)
[2021-10-26 10:36] LABS: BLOOD UREA NITROGEN 15.3 mg/dL (7-18); CALCIUM 9.1 mg/dL (8.5-10.1)
[2021-10-26 10:37] LABS: ALBUMIN 3.1 g/dl (3.4-5.0)
[2021-10-26 10:41] LABS: TOT PROT 6.4 g/dl (6.4-8.2)
[2021-10-26 10:54] LABS: BILIRUBIN,TOTAL 0.6 mg/dL (0.2-1)
[2021-10-26] MEDS: HYDROCHLOROTHIAZIDE 12.5 MG CAPSULE (FP) PO SCH (11:01)
[2021-10-26] MEDS: NICOTINE 7 MG/24 HOURS TOPICAL PATCH TD SCH (11:02)
[2021-10-26] MEDS: PRENATAL VITAMINS W/ FOLIC ACID TABLET (FP) PO SCH (11:02)
[2021-10-26] MEDS ORDERED: LISINOPRIL 10 MG TABLET PO SCH (22:00)
[2021-10-26] MEDS: ATORVASTATIN CA 20 MG TABLET (FP) PO SCH (22:59)
[2021-10-26] MEDS: THIAMINE HCL 100 MG TABLET (FP) PO SCH (23:03)
[2021-10-26] MEDS: MELATONIN 5 MG TABLETS PO SCH (23:03)
[2021-10-26] MEDS: MIRTAZAPINE 15 MG TABLET (FP) PO SCH (23:03)
[2021-10-27] MEDS: chlordiazePOXIDE HCL 25 MG CAPSULE PO SCH ×4 (05:47→23:15)
[2021-10-27] MEDS: HYDROCHLOROTHIAZIDE 12.5 MG CAPSULE (FP) PO SCH (11:14)
[2021-10-27] MEDS: NICOTINE 7 MG/24 HOURS TOPICAL PATCH TD SCH (11:15)
[2021-10-27] MEDS: PRENATAL VITAMINS W/ FOLIC ACID TABLET (FP) PO SCH (11:15)
[2021-10-27] MEDS: LISINOPRIL 20 MG TABLET PO SCH ×2 (11:16→23:13)
[2021-10-27] MEDS: amLODIPine BESYLATE 10 MG TABLET (FP) PO SCH (11:17)
[2021-10-27] MEDS: ATORVASTATIN CA 20 MG TABLET (FP) PO SCH (23:11)
[2021-10-27] MEDS: MIRTAZAPINE 15 MG TABLET (FP) PO SCH (23:13)
[2021-10-27] MEDS: THIAMINE HCL 100 MG TABLET (FP) PO SCH (23:13)
[2021-10-27] MEDS: MELATONIN 5 MG TABLETS PO SCH (23:14)
[2021-10-28] MEDS ORDERED: chlordiazePOXIDE HCL 10 MG CAPSULE PO PRN
[2021-10-28] MEDS: chlordiazePOXIDE HCL 10 MG CAPSULE PO SCH ×3 (06:13→18:09)
[2021-10-28] MEDS ORDERED: chlordiazePOXIDE 5 MG CAPSULE ONE (09:18)
[2021-10-28] MEDS: amLODIPine BESYLATE 10 MG TABLET (FP) PO SCH (11:38)
[2021-10-28] MEDS: NICOTINE 7 MG/24 HOURS TOPICAL PATCH TD SCH (11:38)
[2021-10-28] MEDS: LISINOPRIL 20 MG TABLET PO SCH (11:38)
[2021-10-28] MEDS: HYDROCHLOROTHIAZIDE 12.5 MG CAPSULE (FP) PO SCH (11:38)
[2021-10-28] MEDS: hydrOXYzine PAMOATE 25 MG CAPSULE (FP) PO PRN ×2 (11:39→18:09)
[2021-10-28] MEDS: PRENATAL VITAMINS W/ FOLIC ACID TABLET (FP) PO SCH (11:39)
[2021-10-28] MEDS: METHOCARBAMOL 500 MG TABLET PO PRN ×2 (11:39→18:11)
[2021-10-29] MEDS: MIRTAZAPINE 15 MG TABLET (FP) PO SCH ×2 (00:16→22:19)
[2021-10-29] MEDS: ATORVASTATIN CA 20 MG TABLET (FP) PO SCH ×2 (00:16→22:19)
[2021-10-29] MEDS: MELATONIN 5 MG TABLETS PO SCH ×2 (00:16→22:20)
[2021-10-29] MEDS: LISINOPRIL 20 MG TABLET PO SCH ×3 (00:16→22:19)
[2021-10-29] MEDS: chlordiazePOXIDE HCL 10 MG CAPSULE PO SCH ×3 (00:16→17:45)
[2021-10-29] MEDS: THIAMINE HCL 100 MG TABLET (FP) PO SCH ×2 (00:16→22:19)
[2021-10-29] MEDS: PRENATAL VITAMINS W/ FOLIC ACID TABLET (FP) PO SCH (11:31)
[2021-10-29] MEDS: amLODIPine BESYLATE 10 MG TABLET (FP) PO SCH (11:32)
[2021-10-29] MEDS: NICOTINE 7 MG/24 HOURS TOPICAL PATCH TD SCH (11:32)
[2021-10-29] MEDS: HYDROCHLOROTHIAZIDE 12.5 MG CAPSULE (FP) PO SCH (11:32)
[2021-10-29] MEDS: hydrOXYzine PAMOATE 25 MG CAPSULE (FP) PO PRN (11:34)
[2021-10-30] MEDS ORDERED: chlordiazePOXIDE HCL 10 MG CAPSULE PO ONE (05:00)
[2021-10-30] MEDS: amLODIPine BESYLATE 10 MG TABLET (FP) PO SCH (09:11)
[2021-10-30] MEDS: NICOTINE 7 MG/24 HOURS TOPICAL PATCH TD SCH (09:11)
[2021-10-30] MEDS: LISINOPRIL 20 MG TABLET PO SCH (09:11)
[2021-10-30] MEDS: HYDROCHLOROTHIAZIDE 12.5 MG CAPSULE (FP) PO SCH (09:11)
[2021-10-30] MEDS: PRENATAL VITAMINS W/ FOLIC ACID TABLET (FP) PO SCH (09:11)
[2021-10-30 09:48] VITALS: BP 128/76; PULSE 97; RESP 19; TEMP 97
== END 2021-10-30 09:15 | disposition home or self-care (01) | DRG 774 ==
LOC: YASAS 10:08 → Y6N 13:36
PROVIDERS: ADMIT Allergy & Immunology; ATTEND Surgery
PROC: HZ2ZZZZ Detoxification Services for Substance Abuse Treatment (ICD-10-PCS; principal; 2021-10-25)
DX: F10.230 Alcohol dependence with withdrawal, uncomplicated (principal); F14.20 Cocaine dependence, uncomplicated; F12.20 Cannabis dependence, uncomplicated; F17.220 Nicotine dependence, chewing tobacco, uncomplicated; F19.282 Other psychoactive substance dependence with psychoactive substance-induced sleep disorder; F19.24 Other psychoactive substance dependence with psychoactive substance-induced mood disorder; F43.10 Post-traumatic stress disorder, unspecified; F32.A Depression, unspecified; I10 Essential (primary) hypertension; E78.5 Hyperlipidemia, unspecified
CPT/HCPCS: 36415; 80053; 85027; 86780; C9803-CS; U0003; U0005

== ENCOUNTER 2023-08-01 10:18 | Inpatient (IN) | payer OTHER ==
[2023-08-01 11:07] VITALS: BMI 24.7
[2023-08-01] MEDS ORDERED: ACETAMINOPHEN 325 MG TABLET (FP) PO PRN (11:53)
[2023-08-01] MEDS ORDERED: MAGNESIUM HYDROX 2400MG/30ML ORAL SUSPENSION 30 ML CUP PO PRN (11:53)
[2023-08-01] MEDS ORDERED: DICYCLOMINE HCL 10 MG CAPSULE PO PRN (11:53)
[2023-08-01] MEDS ORDERED: NALOXONE HCL 0.4 MG/ML VIAL IM PRN (11:53)
[2023-08-01] MEDS ORDERED: BISMUTH SUBSALICYLATE 524 MG/30 ML PO PRN (11:53)
[2023-08-01] MEDS ORDERED: POLYETHYLENE GLYCOL (HEALTHYLAX) 3350 17 GM PACKET PO PRN (11:53)
[2023-08-01] MEDS ORDERED: IBUPROFEN 600 MG TABLET (FP) PO PRN (11:53)
[2023-08-01] MEDS ORDERED: ONDANSETRON *ODT* 4 MG TABLET SL PRN (11:53)
[2023-08-01] MEDS ORDERED: BENZONATATE 200 MG CAPSULE PO PRN (11:53)
[2023-08-01] MEDS ORDERED: BENZOCAINE/MENTHOL (CHLORASEPTIC ) LOZENGE MM PRN (11:53)
[2023-08-01] MEDS ORDERED: guaiFENesin 600 MG TABLET.ER (FP) PO PRN (11:53)
[2023-08-01] MEDS ORDERED: MAG HYDROX/AL HYDROX/SIMETH 30 ML UNIT-DOSE CUP PO PRN (11:53)
[2023-08-01] MEDS ORDERED: NALOXONE HCL (KLOXXADO) 8 MG SPRAY NS PRN (11:53)
[2023-08-01] MEDS ORDERED: IBUPROFEN 400 MG TABLET (FP) PO PRN (11:53)
[2023-08-01] MEDS ORDERED: LOPERAMIDE HCL 2 MG CAPSULE PO PRN (11:53)
[2023-08-01] MEDS ORDERED: chlordiazePOXIDE HCL 25 MG CAPSULE PO PRN (12:09)
[2023-08-01] MEDS: HYDROCHLOROTHIAZIDE 12.5 MG CAPSULE (FP) PO SCH (13:25)
[2023-08-01] MEDS: LISINOPRIL 20 MG TABLET PO SCH (13:33)
[2023-08-01] MEDS: chlordiazePOXIDE HCL 25 MG CAPSULE PO SCH (17:26)
[2023-08-01] MEDS ORDERED: ATORVASTATIN CA 20 MG TABLET (FP) PO SCH (22:00)
[2023-08-01] MEDS: MELATONIN 5 MG TABLETS PO SCH (23:33)
[2023-08-01] MEDS: THIAMINE 100 MG TABLET PO SCH (23:34)
[2023-08-02] MEDS: METHOCARBAMOL 500 MG TABLET PO PRN (10:28)
[2023-08-02] MEDS: LISINOPRIL 10 MG TABLET PO SCH ×2 (10:28→17:41)
[2023-08-02] MEDS: hydrOXYzine PAMOATE 25 MG CAPSULE (FP) PO PRN (10:28)
[2023-08-02] MEDS: PRENATAL VITAMINS W/ FOLIC ACID TABLET (FP) PO SCH (10:28)
[2023-08-02 13:03] LABS: HEMATOCRIT 42.9 % (35.4-49); HEMOGLOBIN 14.5 GM/dL (11.7-16.9); MCH 29.2 pg (25.7-33.7); MCHC 33.9 g/dl (32.0-35.9); MEAN CELL VOLUME 86.3 fl (80-96); MEAN PLT VOLUME 9.3 fl (7.5-11.1); PLATELET COUNT 377 10^3/uL (134-434); RBC 4.97 M/mm3 (4.00-5.60); RDW 15.7 % (11.9-15.9); WHITE BLOOD COUNT 6.1 K/mm3 (4.0-10.0)
[2023-08-02 13:18] LABS: CHLORIDE 108 mmol/L (98-107); POTASSIUM 4.2 mmol/L (3.5-5.1); SODIUM 140 mmol/L (136-145)
[2023-08-02 13:23] LABS: ALBUMIN 2.7 g/dl (3.4-5.0); ANION GAP 2 mmol/L (4-13); BLOOD UREA NITROGEN 15.8 mg/dL (7-18); CALCIUM 8.7 mg/dL (8.5-10.1); CO2 30 mmol/L (21-32); GLUCOSE,RANDOM 89 mg/dL (74-106)
[2023-08-02 13:26] LABS: CREATININE 0.7 mg/dL (0.55-1.3); SGOT/AST 11 U/L (15-37); SGPT/ALT 22 U/L (13-61)
[2023-08-02 13:27] LABS: TOT PROT 6.8 g/dl (6.4-8.2)
[2023-08-02 13:28] LABS: BILIRUBIN,TOTAL 0.2 mg/dL (0.2-1)
[2023-08-02 13:29] LABS: ALK PHOS 104 U/L (45-117)
[2023-08-02 13:31] LABS: CHOLESTEROL 125 mg/dL (50-200)
[2023-08-02 13:32] LABS: LDL CHOLESTEROL (ONLY SJRH) 65 mg/dL (5-100)
[2023-08-02 13:34] LABS: HDL CHOLESTEROL 54 mg/dL (40-60)
[2023-08-02 15:19] LABS: HIV INTERPRETATION NEGATIVE (NEGATIVE)
[2023-08-03] MEDS: chlordiazePOXIDE HCL 25 MG CAPSULE PO SCH (06:09)
[2023-08-03] MEDS: PENICILLIN G BENZATHINE 2,400,000 UNIT/4 ML PFS IM ONE (14:00)
[2023-08-04] MEDS ORDERED: chlordiazePOXIDE HCL 10 MG CAPSULE PO PRN
[2023-08-04] MEDS: chlordiazePOXIDE HCL 10 MG CAPSULE PO SCH (06:16)
[2023-08-05] MEDS: chlordiazePOXIDE HCL 10 MG CAPSULE PO SCH (05:46)
[2023-08-05 17:22] VITALS: RESP 17
[2023-08-06] MEDS: chlordiazePOXIDE HCL 10 MG CAPSULE PO ONE (05:57)
[2023-08-06 08:54] VITALS: BP 130/80; PULSE 74; TEMP 98.2
== END 2023-08-06 09:01 | disposition home or self-care (01) | DRG 774 ==
LOC: YASAS 10:18 → Y6N 12:34
PROVIDERS: ADMIT Allergy & Immunology; ATTEND Surgery
PROC: HZ2ZZZZ Detoxification Services for Substance Abuse Treatment (ICD-10-PCS; principal; 2023-08-01)
DX: F10.230 Alcohol dependence with withdrawal, uncomplicated (principal); F14.20 Cocaine dependence, uncomplicated; F17.210 Nicotine dependence, cigarettes, uncomplicated; E78.5 Hyperlipidemia, unspecified; I10 Essential (primary) hypertension; A53.9 Syphilis, unspecified; Z86.59 Personal history of other mental and behavioral disorders
CPT/HCPCS: 36415; 80053; 80061; 80305; 80307; 85027; 86593; 86780; 87389; 93005; 93010

== ENCOUNTER 2023-11-27 20:07 | Inpatient (IN) | payer OTHER ==
[2023-11-27 21:40] VITALS: BMI 25.1
[2023-11-28] MEDS ORDERED: DICYCLOMINE HCL 10 MG CAPSULE PO PRN (02:15)
[2023-11-28] MEDS ORDERED: NALOXONE (NARCAN) HCL 4 MG/0.1 ML SPRAY NS PRN (02:15)
[2023-11-28] MEDS ORDERED: IBUPROFEN 600 MG TABLET (FP) PO PRN (02:15)
[2023-11-28] MEDS ORDERED: BENZONATATE 200 MG CAPSULE PO PRN (02:15)
[2023-11-28] MEDS ORDERED: NALOXONE HCL 0.4 MG/ML VIAL IM PRN (02:15)
[2023-11-28] MEDS ORDERED: LOPERAMIDE HCL 2 MG CAPSULE PO PRN (02:15)
[2023-11-28] MEDS ORDERED: guaiFENesin 600 MG TABLET.ER (FP) PO PRN (02:15)
[2023-11-28] MEDS ORDERED: POLYETHYLENE GLYCOL (HEALTHYLAX) 3350 17 GM PACKET PO PRN (02:15)
[2023-11-28] MEDS ORDERED: NICOTINE POLACRILEX 2 MG GUM BUC PRN (02:15)
[2023-11-28] MEDS ORDERED: hydrOXYzine PAMOATE 25 MG CAPSULE (FP) PO PRN (02:15)
[2023-11-28] MEDS ORDERED: ACETAMINOPHEN 325 MG TABLET (FP) PO PRN (02:15)
[2023-11-28] MEDS ORDERED: ONDANSETRON *ODT* 4 MG TABLET SL PRN (02:15)
[2023-11-28] MEDS ORDERED: BISMUTH SUBSALICYLATE 524 MG/30 ML PO PRN (02:15)
[2023-11-28] MEDS ORDERED: BENZOCAINE/MENTHOL (CHLORASEPTIC ) LOZENGE MM PRN (02:15)
[2023-11-28] MEDS ORDERED: IBUPROFEN 400 MG TABLET (FP) PO PRN (02:15)
[2023-11-28] MEDS ORDERED: MAG HYDROX/AL HYDROX/SIMETH 30 ML UNIT-DOSE CUP PO PRN (02:15)
[2023-11-28] MEDS ORDERED: METHOCARBAMOL 500 MG TABLET PO PRN (02:15)
[2023-11-28] MEDS ORDERED: MAGNESIUM HYDROX 2400MG/30ML ORAL SUSPENSION 30 ML CUP PO PRN (02:15)
[2023-11-28] MEDS ORDERED: chlordiazePOXIDE HCL 25 MG CAPSULE PO PRN (02:19)
[2023-11-28] MEDS: chlordiazePOXIDE HCL 25 MG CAPSULE PO SCH (05:55)
[2023-11-28] MEDS ORDERED: chlordiazePOXIDE HCL 25 MG CAPSULE ONE ×2 (05:57→10:06)
[2023-11-28] MEDS ORDERED: PRENATAL VITAMINS W/ FOLIC ACID TABLET (FP) PO ONE (10:06)
[2023-11-28] MEDS ORDERED: LISINOPRIL 10 MG TABLET ONE (10:06)
[2023-11-28] MEDS: LISINOPRIL 10 MG TABLET PO SCH (10:13)
[2023-11-28] MEDS: PRENATAL VITAMINS W/ FOLIC ACID TABLET (FP) PO SCH (10:13)
[2023-11-28] MEDS: NICOTINE 14 MG/24 HOURS TOPICAL PATCH TD SCH (10:13)
[2023-11-28] MEDS ORDERED: EMTRICITABINE/TENOFOV ALAFENAM (DESCOVY) TABLET PO SCH (14:00)
[2023-11-28] MEDS: THIAMINE 100 MG TABLET PO SCH (22:40)
[2023-11-28] MEDS: ATORVASTATIN CA 20 MG TABLET (FP) PO SCH (22:40)
[2023-11-28] MEDS: MELATONIN 5 MG TABLETS PO SCH (22:42)
[2023-11-29] MEDS: chlordiazePOXIDE HCL 25 MG CAPSULE PO SCH (05:59)
[2023-11-29 09:12] VITALS: BP 103/62; PULSE 62; RESP 16; TEMP 98
[2023-11-29] MEDS: EMTRICITABINE/TENOFOV ALAFENAM (DESCOVY) TABLET PO SCH (10:18)
[2023-11-29 12:16] LABS: HEMATOCRIT 47.5 % (35.4-49); HEMOGLOBIN 15.7 GM/dL (11.7-16.9); MCH 29.6 pg (25.7-33.7); MCHC 33.1 g/dl (32.0-35.9); MEAN CELL VOLUME 89.4 fl (80-96); MEAN PLT VOLUME 10.4 fl (7.5-11.1); PLATELET COUNT 342 10^3/uL (134-434); RBC 5.31 M/mm3 (4.00-5.60); RDW 14.7 % (11.9-15.9); WHITE BLOOD COUNT 4.2 K/mm3 (4.0-10.0)
[2023-11-29 12:32] LABS: POTASSIUM 4.2 mmol/L (3.5-5.1)
[2023-11-29 12:38] LABS: CALCIUM 9.2 mg/dL (8.5-10.1)
[2023-11-29 12:39] LABS: ALBUMIN 3.3 g/dl (3.4-5.0)
[2023-11-29 12:40] LABS: CREATININE 0.8 mg/dL (0.55-1.3)
[2023-11-29 12:41] LABS: BILIRUBIN,TOTAL 0.2 mg/dL (0.2-1)
[2023-11-29 12:42] LABS: TOT PROT 6.8 g/dl (6.4-8.2)
[2023-11-30] MEDS ORDERED: chlordiazePOXIDE HCL 10 MG CAPSULE PO PRN
[2023-11-30] MEDS ORDERED: chlordiazePOXIDE HCL 10 MG CAPSULE PO SCH (05:00)
[2023-12-01] MEDS ORDERED: chlordiazePOXIDE HCL 10 MG CAPSULE PO SCH (05:00)
[2023-12-02] MEDS ORDERED: chlordiazePOXIDE HCL 10 MG CAPSULE PO ONE (05:00)
== END 2023-11-29 11:13 | disposition left against medical advice (07) | DRG 770 ==
LOC: YASAS 20:07 → Y6N 11-28 12:34
PROVIDERS: ADMIT Allergy & Immunology; ATTEND Surgery
PROC: HZ2ZZZZ Detoxification Services for Substance Abuse Treatment (ICD-10-PCS; principal; 2023-11-28)
DX: F10.230 Alcohol dependence with withdrawal, uncomplicated (principal); F14.20 Cocaine dependence, uncomplicated; F15.10 Other stimulant abuse, uncomplicated; F12.20 Cannabis dependence, uncomplicated; F17.210 Nicotine dependence, cigarettes, uncomplicated; F43.10 Post-traumatic stress disorder, unspecified; F32.A Depression, unspecified; I10 Essential (primary) hypertension; Z56.0 Unemployment, unspecified; Z59.00 Homelessness unspecified
CPT/HCPCS: 36415; 80053; 80305; 80307; 85027; 86593; 86780; 93005; 93010

== ENCOUNTER 2024-10-25 09:54 | Inpatient (IN) | payer OTHER ==
[2024-10-25 10:41] VITALS: BMI 24.1
[2024-10-25] MEDS ORDERED: NALOXONE (NARCAN) HCL 4 MG/0.1 ML SPRAY NS PRN (11:13)
[2024-10-25] MEDS ORDERED: NICOTINE POLACRILEX 2 MG LOZENGE BC PRN (11:13)
[2024-10-25] MEDS ORDERED: guaiFENesin 600 MG TABLET.ER (FP) PO PRN (11:13)
[2024-10-25] MEDS ORDERED: IBUPROFEN 400 MG TABLET (FP) PO PRN (11:13)
[2024-10-25] MEDS ORDERED: MAG HYDROX/AL HYDROX/SIMETH 30 ML UNIT-DOSE CUP PO PRN (11:13)
[2024-10-25] MEDS ORDERED: ACETAMINOPHEN 325 MG TABLET (FP) PO PRN (11:13)
[2024-10-25] MEDS ORDERED: MAGNESIUM HYDROX 2400MG/30ML ORAL SUSPENSION 30 ML CUP PO PRN (11:13)
[2024-10-25] MEDS ORDERED: BENZONATATE 200 MG CAPSULE PO PRN (11:13)
[2024-10-25] MEDS ORDERED: ONDANSETRON *ODT* 4 MG TABLET SL PRN (11:13)
[2024-10-25] MEDS ORDERED: DICYCLOMINE HCL 10 MG CAPSULE PO PRN (11:13)
[2024-10-25] MEDS ORDERED: IBUPROFEN 600 MG TABLET (FP) PO PRN (11:13)
[2024-10-25] MEDS ORDERED: BISMUTH SUBSALICYLATE 524 MG/30 ML PO PRN (11:13)
[2024-10-25] MEDS ORDERED: hydrOXYzine PAMOATE 25 MG CAPSULE (FP) PO PRN (11:13)
[2024-10-25] MEDS ORDERED: LOPERAMIDE HCL 2 MG CAPSULE PO PRN (11:13)
[2024-10-25] MEDS ORDERED: POLYETHYLENE GLYCOL (HEALTHYLAX) 3350 17 GM PACKET PO PRN (11:13)
[2024-10-25] MEDS ORDERED: BENZOCAINE/MENTHOL (CHLORASEPTIC ) LOZENGE MM PRN (11:13)
[2024-10-25] MEDS ORDERED: PENICILLIN G BENZATHINE 2,400,000 UNIT/4 ML PFS IM ONE (12:30)
[2024-10-25] MEDS ORDERED: PRENATAL VITAMINS W/ FOLIC ACID TABLET (FP) PO ONE (12:58)
[2024-10-25] MEDS: PENICILLIN G BENZATHINE 2,400,000 UNIT/4 ML PFS IM ONE (13:02)
[2024-10-25] MEDS: PRENATAL VITAMINS W/ FOLIC ACID TABLET (FP) PO SCH (13:02)
[2024-10-25] MEDS: THIAMINE 100 MG TABLET PO SCH (22:01)
[2024-10-25] MEDS: MELATONIN 5 MG TABLETS PO SCH (22:03)
[2024-10-25] MEDS: MIRTAZAPINE 15 MG TABLET (FP) PO SCH (22:03)
[2024-10-26 09:29] LABS: MCHC 33.2 g/dl (32.3-36.5); MEAN CELL VOLUME 84.3 fl (79.0-92.2); MEAN PLT VOLUME 12.0 fl (9.4-12.4); RDW 13.8 % (12.2-16.1)
[2024-10-26 09:38] LABS: CO2 31.0 mmol/L (21-32); GLUCOSE,RANDOM 73.0 mg/dL (74-106)
[2024-10-26 09:39] LABS: SGOT/AST 14.0 U/L (15-37); SGPT/ALT 16.0 U/L (13-61)
[2024-10-26 09:41] LABS: CREATININE 1.0 mg/dL (0.55-1.3); TOT PROT 7.1 g/dl (6.4-8.2)
[2024-10-26 09:42] LABS: ALK PHOS 90.0 U/L (45-117)
[2024-10-26] MEDS: EMTRICITABINE/TENOFOV ALAFENAM (DESCOVY) TABLET PO SCH (10:48)
[2024-10-26] MEDS: LISINOPRIL 10 MG TABLET PO SCH (10:49)
[2024-10-26] MEDS: NALTREXONE HCL 50 MG TABLET PO SCH (17:18)
[2024-10-26] MEDS: SODIUM POLYSTYRENE SULFONATE 15 GM/60 ML BOTTLE PO ONE (17:19)
[2024-10-27 10:48] LABS: CO2 34.0 mmol/L (21-32); GLUCOSE,RANDOM 91.0 mg/dL (74-106)
[2024-10-27 10:51] LABS: CREATININE 1.0 mg/dL (0.55-1.3); SGOT/AST 13.0 U/L (15-37); SGPT/ALT 20.0 U/L (13-61)
[2024-10-27 10:53] LABS: TOT PROT 6.4 g/dl (6.4-8.2)
[2024-10-27 10:54] LABS: ALK PHOS 79.0 U/L (45-117)
[2024-10-28 04:44] LABS: HIV INTERPRETATION NEGATIVE (NEGATIVE)
[2024-10-29] MEDS: METHOCARBAMOL 500 MG TABLET PO PRN (10:34)
[2024-10-29 17:10] VITALS: BP 146/82; PULSE 55; RESP 18; TEMP 97.7
== END 2024-10-29 19:08 | disposition home or self-care (01) | DRG 774 ==
LOC: YASAS 09:54 → Y6N 13:12
PROVIDERS: ADMIT Allergy & Immunology; ATTEND Allergy & Immunology
PROC: HZ2ZZZZ Detoxification Services for Substance Abuse Treatment (ICD-10-PCS; principal; 2024-10-25)
DX: F10.230 Alcohol dependence with withdrawal, uncomplicated (principal); F14.20 Cocaine dependence, uncomplicated; F32.A Depression, unspecified
CPT/HCPCS: 36415; 80053; 80305; 80307; 85027; 86780; 87389; 93005; 93010